=== PATIENT | male | born 1955 | race Caucasian/White ===

== ENCOUNTER 2020-08-23 09:44 | Inpatient (IN) | payer BC ==
[2020-08-23] VITALS (11 sets, daily range): BP systolic 104–142; BP diastolic 58–98
[~2020-08-23] VITALS: Ht 180.3 cm; Wt 120.2 kg
--- NOTE | 2020-08-23 10:06 | NUR ---
verbal order given for 150 mg Amiodarone bolus
[2020-08-23] MEDS ORDERED: DILTIAZEM HCL VIAL 5 ML ONE ×2 (10:08→20:59)
[2020-08-23] MEDS ORDERED: SODIUM CHLORIDE 0.9% 1000ML 1,000 ML ONE (10:08)
[2020-08-23] MEDS ORDERED: AMIODARONE HCL 150MG 100 ML IV STA (10:11)
[2020-08-23] MEDS ORDERED: DILTIAZEM HCL 5 MG/ML 5 ML VIAL IV STA (10:11)
[2020-08-23] MEDS ORDERED: AMIODARONE HCL 150MG 100 ML ONE (10:15)
[2020-08-23 10:21] LABS: BASOPHILS % 0.3 % (0.0-1.0); HEMATOCRIT 37.8 % (38.2-49.6); HEMOGLOBIN 13.2 g/dL (14.0-18.0); LYMPHOCYTES # (AUTO) 1.5 (1.0-3.2); LYMPHOCYTES % 10.4 % (18.0-39.1); MEAN CORPUSCULAR HEMOGLOBIN 29.5 pg (28-32); MEAN CORPUSCULAR HGB CONC 34.9 g/dL (31-35); MEAN CORPUSCULAR VOLUME 84.4 fL (81-99); MONOCYTES # (AUTO) 0.5 (0.2-0.8); MONOCYTES % 3.4 % (4.4-11.3); NEUTROPHILS # (AUTO) 12.5 (2.1-6.9); RED BLOOD COUNT 4.48 x10e6/uL (4.3-5.7); RED CELL DISTRIBUTION WIDTH 14.4 % (11.7-14.4)
[2020-08-23] MEDS ORDERED: AMIODARONE IV ONE (10:25)
[2020-08-23 10:35] LABS: PLATELET COUNT 22 x10e3/uL (140-360)
[2020-08-23 10:45] LABS: ALBUMIN 2.4 g/dL (3.5-5.0); ALBUMIN/GLOBULIN RATIO 0.8 (0.8-2.0); ANION GAP 23.1 mmol/L (8-16); CALCIUM 7.6 mg/dL (8.4-10.2); CREATININE, SERUM 6.66 mg/dL (0.72-1.25); POTASSIUM 4.1 mmol/L (3.5-5.1)
[2020-08-23 10:52] LABS: CREATINE KINASE MB 2.3 ng/mL (0-5.0)
--- NOTE | 2020-08-23 10:57 | Diagnostic Imaging Report ---
Chest, 1 view, 08/23/2020. History: A. Fib. Comparison: None available. Findings: The cardiomediastinal silhouette and pulmonary vasculature are prominent with hazy bilateral perihilar opacities and linear opacities in the left lung base. There is no focal consolidation or pleural effusion. There are no acute osseous or soft tissue abnormalities. Impression: Mild CHF with left basilar atelectasis. Signed by: Andrei Field on 08/23/2020 10:54 AM
--- NOTE | 2020-08-23 11:07 | Emergency Department Note ---
History of Present Illnes History of Present Illness Chief Complaint: General Medicine Complaints History of Present Illness This is a 64 year old male arrived to the ED with complaints of elevated heart rate from [facility] Patient with a known history of A. fib. states patient has been vomiting for the past week and was told it was a viral illness and has been on Zofran intermittently. Chief Complaint Comment pt came in via [facility] for c/o nausea, vomiting and generalized weakness, [facility] but called EMS for pt to be taken to the ER instead, pt noticed to have difficulty getting words out and as per , speech abnormality and confusion was noticed at 0400, Dr. Martins in the room at 0958, verbal order given for Cardizem 10 mg IV Historian: Patient Arrival Mode: [facility] Treatment PIT STEWARD: IV Severity: moderate Onset quality: sudden Timing of current episode: constant Progression: worsening Chronicity: recurrent Past Medical/Family History Physician Review I have reviewed the patient's past medical and family history. Any updates have been documented here. Past Medical History Recent Fever: No Clinical Suspicion of Infectio: Yes New/Unexplained Change in Ment: No Past Medical History: Hypertension, A-Fib Physical Exam Related Data Allergies: Coded Allergies: promethazine (Verified Allergy, Unknown, 08/23/20) Triage Vital Signs Vital Signs Date Time Temp Pulse Resp B/P (MAP) Pulse Ox O2 Delivery O2 Flow Rate FiO2 08/23/20 09:58 97.9 172 18 108/69 100 Room Air Physical Exam CONSTITUTIONAL Constitutional: Present well-developed, Present well-nourished HENT HENT: Present normocephalic, Present atraumatic, Present oropharynx clear/moist, Present nose normal HENT L/R: Present left ext ear normal, Present right ext ear normal EYES Eyes: Reports PERRL, Reports conjunctivae normal NECK Neck: Present ROM normal PULMONARY Pulmonary: Present effort normal, Present breath sounds normal CARDIOVASCULAR Cardiovascular: Present irregular rhythm, Present tachycardia GASTROINTESTINAL Abdominal: Present soft, Present nontender, Present bowel sounds normal GENITOURINARY Genitourinary: Present exam deferred SKIN Skin: Present warm, Present dry MUSCULOSKELETAL Musculoskeletal: Present ROM normal NEUROLOGICAL Neurological: Present alert, Present no gross motor or sensory deficits PSYCHOLOGICAL Psychological: Present mood/affect normal, Present judgement normal Results Laboratory Result Diagram: 08/23/20 0959 08/23/20 0959 Laboratory Laboratory Tests Test 08/23/20 09:59 White Blood Count 14.68 x10e3/uL (4.8-10.8) Red Blood Count 4.48 x10e6/uL (4.3-5.7) Hemoglobin 13.2 g/dL (14.0-18.0) Hematocrit 37.8 % (38.2-49.6) Mean Corpuscular Volume 84.4 fL (81-99) Mean Corpuscular Hemoglobin 29.5 pg (28-32) Mean Corpuscular Hemoglobin Concent 34.9 g/dL (31-35) Red Cell Distribution Width 14.4 % (11.7-14.4) Platelet Count 22 x10e3/uL (140-360) Neutrophils (%) (Auto) 85.0 % (38.7-80.0) Lymphocytes (%) (Auto) 10.4 % (18.0-39.1) Monocytes (%) (Auto) 3.4 % (4.4-11.3) Eosinophils (%) (Auto) 0.0 % (0.0-6.0) Basophils (%) (Auto) 0.3 % (0.0-1.0) Neutrophils # (Auto) 12.5 (2.1-6.9) Lymphocytes # (Auto) 1.5 (1.0-3.2) Monocytes # (Auto) 0.5 (0.2-0.8) Eosinophils # (Auto) 0.0 (0.0-0.4) Basophils # (Auto) 0.0 (0.0-0.1) Absolute Immature Granulocyte (auto 0.13 x10e3/uL (0-0.1) Sodium Level 136 mmol/L (136-145) Potassium Level 4.1 mmol/L (3.5-5.1) Chloride Level 102 mmol/L (98-107) Carbon Dioxide Level 15 mmol/L (22-29) Anion Gap 23.1 mmol/L (8-16) Blood Urea Nitrogen 92 mg/dL (7-26) Creatinine 6.66 mg/dL (0.72-1.25) Estimat Glomerular Filtration Rate 8 ML/MIN (60-) BUN/Creatinine Ratio 14 (6-25) Glucose Level 114 mg/dL (74-118) Calcium Level 7.6 mg/dL (8.4-10.2) Total Bilirubin 4.5 mg/dL (0.2-1.2) Aspartate Amino Transf (AST/SGOT) 140 IU/L (5-34) Alanine Aminotransferase (ALT/SGPT) 136 IU/L (0-55) Alkaline Phosphatase 253 IU/L (40-150) Creatine Kinase 54 IU/L (30-200) Creatine Kinase MB 2.30 ng/mL (0-5.0) Troponin I 0.014 ng/mL (0-0.300) B-Type Natriuretic Peptide 194.6 pg/mL (0-100) Total Protein 5.3 g/dL (6.5-8.1) Albumin 2.4 g/dL (3.5-5.0) Globulin 2.9 g/dL (2.3-3.5) Albumin/Globulin Ratio 0.8 (0.8-2.0) Lipase 28 U/L (8-78) Imaging Imaging results reviewed: Yes Procedures 12 Lead ECG Interpretation ECG Interpretation : ECG: ECG 1 Rhythm: atrial fibrillation Rate: tachycardia ST segments normal: Yes T waves normal: Yes Clinical Impression: abnormal ECG Critical Care Time Total Critical Care Time (min): 75 Critical care time exclusive o: separately billable procedures Assessment & Plan Medical Decision Making MDM 64-year-old male initially brought to the ED with A. fib and RVR. Patient's labwork markedly abnormal with thrombocytopenia, acute renal failure, metabolic acidosis, leukocytosis and lactic acidosis concerns of severe sepsis noted at 11:30. Patient covered with broad-spectrum antibiotics, patient required multidisciplinary approach, cardiology, nephrology, and hematology consulted. CT brain also done in the setting of questionable confusion. Patient required ICU admission. Extensive bed-sided care given. Assessment & Plan Final Impression: (1) Severe sepsis Depart Disposition: ADMITTED Last Vital Signs Date Time Temp Pulse Resp B/P (MAP) Pulse Ox O2 Delivery O2 Flow Rate FiO2 08/23/20 10:20 136 22 100/86 99 08/23/20 09:58 97.9 Room Air Medications in the ED Diltiazem HCl 5 ml @ ud STK-MED ONCE .ROUTE ; Start 08/23/20 at 10:08; Stop 08/23/20 at 10:02; Status DC Sodium Chloride 1,000 ml @ ud STK-MED ONCE .ROUTE ; Start 08/23/20 at 10:08; Stop 08/23/20 at 10:02; Status DC Amiodarone HCl 100 ml @ STK-MED ONCE .ROUTE ; Start 08/23/20 at 10:15; Stop 08/23/20 at 10:08; Status DC Amiodarone HCl 100 ml @ 600 mls/hr NOW STAT IV Last administered on 08/23/20at 10:10; Admin Dose 200 MLS/HR; Start 08/23/20 at 10:11; Stop 08/23/20 at 10:23; Status DC Amiodarone HCl 200 ml @ 33 mls/hr ONCE ONCE IV Last administered on 08/23/20at 10:43; Admin Dose 33 MLS/HR; Start 08/23/20 at 10:25; Stop 08/23/20 at 16:28 Amiodarone HCl 500 ml @ 16.6 mls/hr Q24H IV ; Start 08/23/20 at 16:25; Stop 09/22/20 at 16:24 Diltiazem HCl 10 mg NOW STAT IV Last administered on 08/23/20at 10:06; Admin Dose 10 MG; Start 08/23/20 at 10:11; Stop 08/23/20 at 10:15; Status DC DONALD MARTINS DO Aug 23, 2020 11:07
[2020-08-23] MEDS ORDERED: CEFEPIME 1GM/NS 0.9% 50 ML 50 ML IV SCH (11:22)
[2020-08-23] MEDS ORDERED: SODIUM BICARBONATE 8.4% INJ 50 ML SYR IV STA (11:22)
[2020-08-23] MEDS ORDERED: SODIUM CHLORIDE 0.9% 1000ML 1,000 ML IV STA (11:22)
[2020-08-23] MEDS ORDERED: VANCOMYCIN 1GM/NS 250 ML 250 ML IV STA (11:22)
[2020-08-23] MEDS ORDERED: SODIUM CHLORIDE 0.9% 1000ML 1,000 ML IV SCH (11:22)
[2020-08-23 11:40] LABS: PLATELET ESTIMATE MARKEDLY DECREASED
[2020-08-23 11:49] LABS: INR 1.08; PROTHROMBIN TIME 14.6 seconds (11.9-14.5)
--- NOTE | 2020-08-23 12:14 | NUR ---
1st attempt to call report
--- NOTE | 2020-08-23 12:21 | NUR ---
report given to Nu DELVALLE
--- OUTSIDE RECORDS SUMMARY | 2020-08-23 12:29 | XMS REPORT | Continuity of Care Document ---
Author Author [facility] t Organization [facility] Address [address] [place] [address] Phone Unavailable Care Team Providers Care Airfield Engineer Officer Name Role Phone Donna AMRTINS Attphydonna Unavailable Payers Payer Name Policy Type Policy Number Effective Date Expiration Date S ource Problems This patient has no known problems. Allergies, Adverse Reactions, Alerts Allergy Name Allergy Type Status Severity Reaction(s) Onset Date Inacti ve Date Treating Clinician Comments Source No Known Allergies DA Active U 2020-06-29 00:00:00 [facility] Medications This patient has no known medications. Procedures This patient has no known procedures. Results Test Description Test Time Test Comments Results Result Comments Source CHEST SINGLE (PORTABLE) 2020-08-23 10:53:00 [facility] [address] [place], [place] [address] Patient Name: KULWANT KOLB MR #: [id number] : 1955 Age/Sex: 64/M Req #: [id number] Adm Physician: Ordered by: DONALD MARTINS DO Report #: [id number] Location: ER Room/Bed: Procedure: [id number] DX/CHEST SINGLE (PORTABLE) Exam Date: 08/23/20 Exam Time: 1021 REPORT STATUS: Signed Chest, 1 view, 08/23/2020. History: A. Fib. Comparison: None available. Findings: The cardiomediastinal silhouette and pulmonary vasculature are prominent with hazy bilateral perihilar opacities and linear opacities in the left lung base. There is no focal consolidation or pleural effusion. There are no acute osseous or soft tissue abnormalities. Impression: Mild CHF with left basilar atelectasis. Signed by: Andrei Field on 08/23/2020 10:54 AM Dictated By: ANDREI FIELD MD 1054 Transcribed By: PILI on 08/23/20 1054 COPY TO: DONALD MARTINS DO COVID 19 Asymptomatic IH AG 2020-06-30 08:15:00 Test Item COVID 19 Asymptomatic IH AG (test code = COVNONPUIAG) Negative Negative A negative result is presumptive and should be confirmedwith an FDA authorized molecular assay, if necessary forpatient management.A positive result does not rule out co-infections withother pathogens.This test detects both viable (live) and non-viable,SARS-CoV, and SARS-CoV-2. Test performance depends on theamount of virus (antigen) in the sample.This test has not been FDA cleared or approved; the test hasbeen authorized by FDA under an Emergency Use Authorization(EUA) for use by laboratories certified under the CLIA thatmeet the requirements to perform moderate, high or waivedcomplexity tests. RENAL FUNCTION [id number] 05:18:00* Test Item Value Reference Range Interpretation Comments SODIUM (test code = NA) 142 mEq/L 134-147 N POTASSIUM (test code = K) 3.8 mEq/L 3.4-5.0 N CHLORIDE (test code = CL) 106 mEq/L 100-108 N CARBON DIOXIDE (test code = CO2) 27 mEq/L 21-33 N ANION GAP (test code = GAP) 13 0-20 N GLUCOSE (test code = GLU) 90 mg/dL 70-110 N BLOOD UREA NITROGEN (test code = BUN) 19 mg/dL 7-18 H GLOMERULAR FILTRATION RATE (test code = GFR) 97.6 80-90 H Units of measure = ml/min/1.73 m2 CREATININE (test code = CREAT) 0.8 mg/dL 0.6-1.3 N ALBUMIN (test code = ALB) 4.10 g/dL 3.4-5.0 N CALCIUM (test code = CA) 9.4 mg/dL 8.0-10.5 N PHOSPHOROUS (test code = PHOS) 3.4 mg/dL 2.5-4.9 N [id number] 05:18:00* Test Item Value Reference Range Interpretation Comments MAGNESIUM (test code = MAG) 2.19 mg/dL 1.8-2.4 N CBC W/AUTO [id number] 05:03:00* Test Item Value Reference Range Interpretation Comments WHITE BLOOD CELL (test code = WBC) 9.70 x10 3/uL 4.5-11.0 N RED BLOOD CELL (test code = RBC) 5.00 x10 6/uL 4.00-5.60 N HEMOGLOBIN (test code = HGB) 14.9 g/dL 12.5-16.9 N HEMATOCRIT (test code = HCT) 44.5 % 37.5-50.7 N MEAN CELL VOLUME (test code = MCV) 89.0 fL 81.0-99.0 N MEAN CELL HGB (test code = MCH) 29.8 pg 27.0-33.0 N MEAN CELL HGB CONCETRATION (test code = MCHC) 33.5 g/dL 33.0-37. 0 N RED CELL DISTRIBUTION WIDTH CV (test code = RDW) 13.5 % 11.5- 14.5 N RED CELL DISTRIBUTION WIDTH SD (test code = RDW-SD) 43.9 fL 37 .0-54.0 N PLATELET COUNT (test code = PLT) 263 x10 3/uL 150-400 N MEAN PLATELET VOLUME (test code = MPV) 9.7 fL 7.0-9.0 H NEUTROPHIL % (test code = NT%) 71.2 % 56.0-77.0 N IMMATURE GRANULOCYTE % (test code = IG%) 0.2 % 0.0-2.0 N LYMPHOCYTE % (test code = LY%) 15.8 % 14.0-32.0 N MONOCYTE % (test code = MO%) 9.2 % 4.8-9.0 H EOSINOPHIL % (test code = EO%) 3.1 % 0.3-3.7 N BASOPHIL % (test code = BA%) 0.5 % 0.0-2.0 N NUCLEATED RBC % (test code = NRBC%) 0.0 % 0-0 N NEUTROPHIL # (test code = NT#) 6.91 x10 3/uL 2.0-7.6 N IMMATURE GRANULOCYTE # (test code = IG#) 0.02 x10 3/uL 0.00-0.03 N LYMPHOCYTE # (test code = LY#) 1.53 x10 3/uL 1.0-3.8 N MONOCYTE # (test code = MO#) 0.89 x10 3/uL 0.1-0.8 H EOSINOPHIL # (test code = EO#) 0.30 x10 3/uL 0.0-0.2 H BASOPHIL # (test code = BA#) 0.05 x10 3/uL 0.0-0.2 N NUCLEATED RBC # (test code = NRBC#) 0.00 x10 3/uL 0.0-0.1 N MANUAL DIFF REQUIRED (test code = MDIFF) NO - XR CHEST 1 [id number] 01:26:00 FAX: Jun Siddiqi MD [phone] [place]: St: ADM FAX: Devang Bryan MD Name: KULWANT KOLB [facility] : 1955 Age/S: 64/M [address] [place] [address] Unit #: [id number] Loc: [place] [address] Phys: Jun Johnson MD Acct: [id number] Dis Date: Status: ADM IN PHONE #: [phone] Exam Date: 06/30/2020 0022 FAX #: [phone] Reason: TRAUMA EXAMS: CPT CODE: [id number] XR CHEST 1 V 60476 Study: - XR CHEST 1 V 06/30/2020 11:59 PM Patient Name: KULWANT KOLB MR: [id number] : 1955; Age: 64 years y/o Male Ordering Physician: Jun Johnson MD Clinical Indication: Chest trauma. Comparison: None FINDINGS LUNGS: The lungs are clear of consolidation, pleural effusion, and pneumothorax. Minimal left basilar subsegmental atelectasis. HEART AND MEDIASTINUM: Normal size heart. LINES: None. OSSEOUS STRUCTURES: No fracture, dislocation, or suspicious focal osseous lesion. OTHER: None. IMPRESSION: No acute abnormality as above discussed. SL: TPAINTER-H at 0126 Reported and signed by: Tariq Chino M.D. CC: Jun Johnson MD; Devang Bryan MD Technologist: RT Ray(R) Trnscrd Date/Time/By: 06/30/2020 (0126) : By: [email or web address] Orig Print D/T: S: 06/30/2020 (0129) P AGE 2 Signed Report - XR HAND 3 + V [id number] 19:53:00 FAX: Devang Bryan MD [place]: St: REG Name: KULWANT RODRIGUEZ [facility] : [birth year] Age/S: 64/M [address] [place] [address] Unit #: [id number] Loc: [place] [address] Phys: Devang Bryan MD Acct: [id number] Dis Date: Status: REG ER PHONE #: [phone] Exam Date: 06/29/20201944 FAX #: [phone] Reason: thumb injury EXAMS: CPT CODE: [id number] XR HAND 3 + [place] [address] Three-view left hand. INDICATION: Left thumb laceration injury FINDINGS: No prior for comparison. No acute fracture, dislocation, osseous destruction is seen i n the hand. No radiopaque foreign body identified. IMPRES ERIBERTO: No acute bony finding or radiopaque foreign body. SL: SG-H at [facility] Reported and signed by: Odell Perez M.D. CC: Devang Bryan MD Technologist: Aubrie Laboy RT(R); Mindi Smith RT(R) Trnmerd Date/Time/By: 06/29/2020 (1952) : By: [email or web address] PAGE 1 Signed Report
--- NOTE | 2020-08-23 12:30 | NUR ---
RT notified that patient needs a STAT ABG draw at this time
--- NOTE | 2020-08-23 12:50 | Diagnostic Imaging Report ---
EXAMINATION: Head CT HISTORY: 64 year old male with altered mental status, history of atrial fibrillation COMPARISON: None available TECHNIQUE: Helical axial images of the head were obtained. Reformatted coronal and sagittal images from the axial data. Dose modulation, iterative reconstruction, and/or weight based adjustment of the mA/kV was utilized to reduce the radiation dose to as low as reasonably achievable. FINDINGS: Parenchyma: 1. Suboptimal evaluation due to patient's motion, grossly no areas of abnormal density in the brain parenchyma. 2. No mass or hemorrhage. No CT evidence of acute territorial vascular insult. Extra-axial spaces:No abnormal density. No extra-axial fluid collections Brain volume: Paucity of the cerebral sulci near the vertex region. Ventricles: Mild ventriculomegaly without transependymal CSF spread. Arteries: No density suggestive of thrombus. Dural sinuses: No abnormal density. Foramen magnum: No mass, Chiari malformation, or basilar invagination. Sella: No obvious mass. Paranasal/mastoid sinuses: Imaged portions unremarkable. Skull/Scalp: No lytic or blastic lesions. No fractures. IMPRESSION: Suboptimal evaluation due to motion artifact, grossly no acute intracranial mass, hemorrhage, midline shift or herniation. Signed by: Dr. Meagan Jordan M.D. on 08/23/2020 12:47 PM
--- NOTE | 2020-08-23 12:52 | Diagnostic Imaging Report ---
CT of the abdomen and pelvis, without contrast, 08/23/2020. History: Abdominal pain. Comparison: None available. Technique: Multidetector CT scanning of the abdomen and pelvis was performed from the level of the lung bases to the inferior pubic rami without intravenous or oral contrast. Coronal and sagittal multiplanar reformations were obtained. RADIATION DOSE: Total DLP: 2083 mGy*cm Dose modulation, iterative reconstruction, and/or weight based adjustment of the mA/kV was utilized to reduce the radiation dose to as low as reasonably achievable. Discussion: Examination is limited without contrast. Lung bases: There is bibasilar atelectasis. A 3.4 x 1.8 cm oval circumscribed low density subcutaneous lesion is present within the lower anterior chest wall, measuring 11 Hounsfield units in density. Abdomen: A 3.4 cm simple cyst is present in the upper pole of the left kidney. A 3 mm calcification is present in the lower pole of the left kidney. There is no evidence of hydronephrosis. The liver, gallbladder, biliary tree, spleen, pancreas, adrenal glands, and right kidney are unremarkable. The abdominal aorta is within normal limits. There is no bowel dilatation. Scattered diverticula are present within the distal colon without evidence of adjacent inflammation. There is no evidence of adenopathy or free fluid. Pelvis: The bladder, prostate, and seminal vesicles are unremarkable. There is no evidence of free fluid or adenopathy. Bones and soft tissues: Degenerative changes are present throughout the lumbar spine without evidence of lytic or sclerotic lesion. IMPRESSION: 1. Probable sebaceous cyst in the lower anterior thoracic wall. 2. Benign left renal cyst and nonobstructing 3 mm left renal calculus. 3. Colonic diverticulosis without evidence of diverticulitis. Otherwise unremarkable noncontrast exam. Signed by: Andrei Field on 08/23/2020 12:49 PM
[2020-08-23 12:58] LABS: ABG HCO3 18 mmol/L (22-26); ABG PCO2 25 mmHg (35-45); ABG PH 7.46 (7.35-7.45); ABG PO2 77 mmHg (80-105); ABG TCO2 19
[2020-08-23] MEDS: LACTATED RINGER'S 1,000 ML INJ SCH ×3 (13:38→16:49)
--- NOTE | 2020-08-23 13:50 | Consultation ---
DATE OF CONSULTATION: Pulmonary Critical Care Consultation CHIEF COMPLAINT: Nausea, vomiting, fevers, and malaise. HISTORY OF PRESENT ILLNESS: The patient is a 64-year-old man. He has a history of atrial fibrillation and hypertension. Approximately a week ago, he started developing nausea and vomiting. He had a virtual appointment with a [facility] doctor and received Zofran. He had some temporary relief, but the symptoms recurred again this morning. This morning, he had vomiting as well as some confusion and fevers. He was taken to the emergency department and found to have rapid atrial fibrillation as well as acute renal failure and a low platelet count. PAST SURGICAL HISTORY: 1. denies any prior abdominal surgery. 2. Recent skin biopsy for a rash in the lower extremities. PAST MEDICAL HISTORY: 1. Hypertension. 2. Atrial fibrillation. 3. No prior liver disease. 4. No prior kidney disease. 5. No prior respiratory problems. FAMILY HISTORY: Noncontributory. ALLERGIES: THE PATIENT IS ALLERGIC TO PROMETHAZINE. REVIEW OF SYSTEMS: The patient is afebrile. The patient is still having nausea and vomiting. He has some confusion. He does not have chest pain. He has some dyspnea. He has some possible right flank or right upper abdominal pain. He has no diarrhea. He does have a rash sounds lower extremities as well as torsion. PHYSICAL EXAMINATION: VITAL SIGNS: Blood pressure is 113/86, saturation is 98% on room air. The respiratory rate is in the mid 20s. The heart rate is 130-140 and is atrial fibrillation. ABDOMEN: Soft. There is some right upper quadrant and right flank tenderness. He has no rebound or guarding. EXTREMITIES: There is no leg edema. SKIN: Examination of the skin shows an excoriated macular rash on the lower extremities as well as on the trunk. NEUROLOGICAL: Some confusion, but no focal abnormalities. LABORATORY DATA: White blood cell count is 14.68, hemoglobin is 13.2. The platelet count is 22. The BUN to creatinine ratio is 92% to 6.66. The total bilirubin is 4.5 and the AST is 140. The ALT is 136 and the alkaline phosphatase is 253. The lactic acid is 2.4 and the creatinine is 6.66. The BUN is 92. The carbon dioxide is 15. Other electrolytes within normal limits. The PT and INR within normal limits. RADIOGRAPHIC DATA: Chest x-ray shows mild interstitial changes. CT scan of the abdomen and pelvis is pending. IMPRESSION: 1. Acute renal failure. 2. Septic shock with unclear source, present on admission. 3. Elevated total bilirubin and transaminitis of unclear etiology, present on admission. 4. Severe thrombocytopenia, present on admission. 5. Metabolic acidosis. 6. Atrial fibrillation with rapid ventricular response. PLAN: 1. The patient has received 2.5 L of fluid. 2. The patient has been initiated on broad-spectrum antibiotics. Cultures have been obtained. 3. Await results of abdomen and pelvic CT. 4. Continue to monitor renal function. 5. The patient is receiving amiodarone. 6. Possible platelet transfusion. 7. Nephrology consultation. Case discussed with , emergency department and nursing staff. The understands the patient's condition is very serious and he will require care in the intensive care unit. MD ARVIND Cisneros/RUDDY /[id number] MTDD
[2020-08-23] MEDS ORDERED: DOXYCYCLINE 100MG/NS 100ML 100 ML IV SCH (14:00)
[2020-08-23] MEDS ORDERED: FUROSEMIDE INJ 10 MG/ML 2 ML VIAL IV ONE (14:45)
--- NOTE | 2020-08-23 14:50 | NUR ---
Phoned Stephanie obtained consent for blood products place on chart with by Meg DELVALLE
--- NOTE | 2020-08-23 15:15 | Consultation ---
DATE OF CONSULTATION: Initial Nephrology consultation report REASON FOR CONSULTATION: Acute kidney injury. HISTORY OF PRESENT ILLNESS: Mr. Francisco Simmons is a 64-year-old male, who presented to the hospital. He was actually brought into the hospital. He presented with atrial fibrillation with rapid ventricular response. He was brought in by EMS. The patient also reports that he has been having some altered mental status, vomiting, and some weakness and also some difficulty in speech that was noticed. I am being asked to see him because his serum creatinine is 6. I do not have any other old records on the patient. I do not have any baseline on him. The patient states that he has not been taking any NSAIDs or any Gray-2 inhibitors. The patient right now is tachycardic. PAST MEDICAL HISTORY: The patient has a history of atrial fibrillation, history of hypertension. No other known past medical history. PAST SURGICAL HISTORY: Unknown. REVIEW OF SYSTEMS: As per HPI. MEDICATIONS: Right now in the hospital, he is on amiodarone. He has gotten cefepime and doxycycline. He is on IV fluid. PHYSICAL EXAMINATION: VITAL SIGNS: Blood pressure is 113/86, pulse in the 130-150, and temperature 97.9. GENERAL: The patient seems to be somewhat in distress. He is a little bit tremulous. HEENT: No increased JVD. CARDIOVASCULAR: Tachycardic, irregular rhythm. LUNGS: Decreased breath sounds at bases bilaterally. ABDOMEN: Positive bowel sounds. EXTREMITIES: No edema. SKIN: The patient does have some reticular type of rash on lower part of his legs, and also the lower part of his abdomen, somewhat erythematous on the abdomen probably could be maculopapular. IMAGING DATA: The chest x-ray shows probable mild CHF. CT of the abdomen and pelvis shows the kidneys to be essentially unremarkable except for a renal cyst on the left. LABORATORY RESULTS: Blood gas is pH 7.46, pCO2 of 25, PO2 of 77 and bicarb is 18. White count 14.6, hemoglobin and hematocrit 13 and 37, and platelet count 22,000. Sodium 136, potassium 4.1, chloride 102, bicarbonate 15, anion gap 23, BUN and creatinine 92 and 6.6 respectively. Calcium is 7.6. Total bilirubin 4.5, AST and ALT 140 and 136, and alkaline phosphatase 253. BNP 194. Lactic acid 2.4. IMPRESSION: 1. Acute kidney injury. 2. Metabolic acidosis. 3. Probable respiratory alkalosis. 4. Hypovolemia. 5. Shock. 6. Transaminitis. 7. Thrombocytopenia. 8. Sepsis. PLAN: At the present time, the patient has renal failure and it looks like all of his LFTs are elevated as well. The patient did not give me a history of any medication usage, Tylenol, or NSAIDs or otherwise [id number]-ssixmjz. The patient is behaving as if he is septic. IV fluids will be given. I will have his IV fluids changed to lactated Ringer 125 mL an hour for 2 L and then 100 mL an hour. I will give him one dose of Lasix 60 mg IV x1 to keep him nonoliguric. NSAIDs, Gray-2 inhibitor, and IV contrast should be avoided. I will check a urinalysis on him. I will also do a full serological workup to make sure there is no other reason to do workup for rapidly progressive glomerulonephritis even though this may be simply sepsis. I will check an SUMMER, lnsr-exsozl-enamnywd DNA, C3, C4, C-ANCA, P-ANCA, anti-GBM antibody, and hepatitis B and C serologies. Further actions will be based on this preliminary workup. At some point, he will need a Trialysis catheter. However, his platelets are only 20,000 at this point, so this will need to be assessed before probably a light can be placed. I will follow the patient with you. Ather MD MARC Lewis/RUDDY /[id number]
[2020-08-23 16:00] LABS: BASOPHILS # (AUTO) 0.1 (0.0-0.1); BASOPHILS % 0.4 % (0.0-1.0); EOSINOPHILS % 0.2 % (0.0-6.0); HEMATOCRIT 40.6 % (38.2-49.6); HEMOGLOBIN 13.8 g/dL (14.0-18.0); LYMPHOCYTES # (AUTO) 1.9 (1.0-3.2); LYMPHOCYTES % 10.6 % (18.0-39.1); MEAN CORPUSCULAR VOLUME 85.3 fL (81-99); MONOCYTES # (AUTO) 0.6 (0.2-0.8); MONOCYTES % 3.3 % (4.4-11.3); NEUTROPHILS # (AUTO) 15.1 (2.1-6.9); NEUTROPHILS % 84.5 % (38.7-80.0); RED BLOOD COUNT 4.76 x10e6/uL (4.3-5.7); RED CELL DISTRIBUTION WIDTH 14.6 % (11.7-14.4)
[2020-08-23 16:03] LABS: PLATELET COUNT 24 x10e3/uL (140-360)
[2020-08-23] MEDS ORDERED: AMIODARONE 900MG 500 ML IV SCH (16:25)
[2020-08-23] MEDS: CEFTRIAXONE SOD 2 GM/NS 100 ML 100 ML IV SCH (16:51)
[2020-08-23] MEDS: AMPICILLIN SOD 2 GM/NS 100ML 100 ML IV SCH (16:51)
[2020-08-23 16:56] LABS: HIV 1&2 AB SCREEN NON-REACTIVE (NONREACTIVE)
--- NOTE | 2020-08-23 16:57 | Diagnostic Imaging Report ---
Renal ultrasound. Clinical History: Acute renal failure. Comparison Study: CT abdomen from earlier today. Findings: The right kidney measures 12 cm and left kidney measures 11.9 cm. Oval anechoic structures are present bilaterally, one in the right interpolar region measuring 1.3 x 1.1 x 1.6 cm and one in the left upper pole measuring 3.5 x 3.0 x 2.6 cm. There is no evidence of hydronephrosis, nephrolithiasis or renal mass on either side. The small stone seen on CT is not visible on this ultrasound. The echogenicity is slightly increased bilaterally. The cortical thickness on the right side is 2.0 cm bilaterally. Both arterial and venous flow is documented to both kidneys. The bladder bladder is unremarkable. Bilateral ureteral jets are seen. Impression: 1. Slightly increased renal echogenicity suggestive of medical renal disease. 2. Simple benign bilateral renal cysts. Signed by: Andrei Field on 08/23/2020 4:53 PM
--- NOTE | 2020-08-23 17:05 | NUR ---
Obtained phoned consent for dialysis catheter placement and hemodialysis for per Dr Benitez request from Stephanie placed on chart witness by Laure Vega
--- NOTE | 2020-08-23 18:06 | Consultation ---
DATE OF CONSULTATION: REASON FOR CONSULTATION: Sepsis, altered mental status, and fever. HISTORY OF PRESENT ILLNESS: This patient is a 64-year-old gentleman. Apparently, he has been sick for a week after nausea, some vomiting, not feeling well. Three weeks ago, apparently he saw nausea and vomiting, he saw his doctor through a virtual visit. He was given Zofran with some relief, but then it got worse again. [facility] and he was evaluated. His blood pressure was on low side and he having these tremor. He was also found to have atrial fibrillation. He had acute renal failure. He was seen in the emergency room, he was found to have thrombocytopenia, acute renal failure, and fever. The patient is being admitted. I am asked to see him. The patient is currently alert. He knows he is in the hospital source of information. I had called his . 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 ALLERGIES: NKA. SOCIAL HISTORY: There is no smoking, drug abuse, or alcohol abuse. He has some cats. FAMILY HISTORY: Otherwise noncontributory. REVIEW OF SYSTEMS: HEENT: Negative beside the tremor, fever, chills, and nausea, which resolved. PHYSICAL EXAMINATION: GENERAL: As mentioned above, currently confused. VITALS: Stable, temperature 97.9, heart rate 72, blood pressure 108/69. HEENT: Normocephalic. NECK: Supple. HEART: S1-S2. ABDOMEN: Soft, bowel sounds present. EXTREMITIES: No edema. IMPRESSION: 1. 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 2. Acute kidney injury, we will obtain blood cultures and obtain urine cultures, and obtain LP. He probably need blood transfusion. He would probably need dialysis. We will start patient on ampicillin, Rocephin, and acyclovir. He received dose of vancomycin. We will modify after his kidney function. 3. His COVID-19 was negative earlier with his doctor office. Further recommendations to follow. MD SETH Cornell/RUDDY /[id number]
[2020-08-23] MEDS ORDERED: SODIUM CHLORIDE 0.9% 250ML 250 ML ONE (18:21)
[2020-08-23 18:56] LABS: BASOPHILS # (AUTO) 0.1 (0.0-0.1); BASOPHILS % 0.3 % (0.0-1.0); HEMATOCRIT 37.5 % (38.2-49.6); LYMPHOCYTES # (AUTO) 1.5 (1.0-3.2); LYMPHOCYTES % 8.1 % (18.0-39.1); MEAN CORPUSCULAR HGB CONC 34.7 g/dL (31-35); MEAN CORPUSCULAR VOLUME 83.5 fL (81-99); MONOCYTES # (AUTO) 0.7 (0.2-0.8); NEUTROPHILS # (AUTO) 15.9 (2.1-6.9); NEUTROPHILS % 86.5 % (38.7-80.0); RED BLOOD COUNT 4.49 x10e6/uL (4.3-5.7); RED CELL DISTRIBUTION WIDTH 14.5 % (11.7-14.4)
[2020-08-23 19:02] LABS: PLATELET COUNT 87 x10e3/uL (140-360)
[2020-08-23 19:17] LABS: ALBUMIN 2.5 g/dL (3.5-5.0); ALBUMIN/GLOBULIN RATIO 0.8 (0.8-2.0); ANION GAP 23.9 mmol/L (8-16); CALCIUM 7.5 mg/dL (8.4-10.2); CREATININE, SERUM 7.32 mg/dL (0.72-1.25); POTASSIUM 3.9 mmol/L (3.5-5.1)
[2020-08-23] MEDS ORDERED: LIDOCAINE HCL 2% LOCAL 20 ML VIAL ONE (19:17)
[2020-08-23] MEDS: ACYCLOVIR SODIUM INJ 500 MG in SODIUM CHLORIDE 0.9% 100 ML 100 ML IV SCH (19:20)
[2020-08-23] MEDS ORDERED: LORAZEPAM INJ 2 MG/ML VIAL ONE (20:10)
--- NOTE | 2020-08-23 20:20 | Diagnostic Imaging Report ---
EXAMINATION: CHEST SINGLE (PORTABLE) INDICATION: Sepsis ^line placement COMPARISON: 08/23/2020 FINDINGS: TUBES and LINES: Right internal jugular central venous catheter with distal tip over the low superior vena cava. The cardiomediastinal silhouette and pulmonary vasculature are prominent with hazy bilateral perihilar opacities and linear opacities in the left lung base. There is no focal consolidation or pleural effusion. No pneumothorax is seen. There are no acute osseous or soft tissue abnormalities. IMPRESSION: Right internal jugular central venous catheter with distal tip over the low superior vena cava. Findings could be due to CHF with left basilar atelectasis. Pneumonia is a possibility in the appropriate clinical context. Follow-up imaging is indicated to document clearing. Signed by: Dr. Govind Chavarria M.D. on 08/23/2020 8:16 PM
--- NOTE | 2020-08-23 20:32 | Consultation ---
DATE OF CONSULTATION: 08/23/2020 Cardiology Consultation REASON FOR CONSULTATION: Atrial fibrillation. HISTORY OF PRESENT ILLNESS: Mr. Simmons is a 64-year-old male with past medical history of atrial fibrillation diagnosed in 2018, chronically on Xarelto and metoprolol therapy and paroxysmal as well as history of hypertension. He was brought into the emergency room after being transferred from a freestanding. He gets most of his care through [facility]. For the past six days, the patient has been having incessant nausea, vomiting, inability to keep any solids down and just progressively getting worse, fatigue, and malaise. The patient's symptoms progressively worsened last Sunday, had a telephone visit where he had some prescription of antiemetic and did a little bit better. He is able to tolerate a little bit of light food. The patient then became worse today where he was noted to have a rash develop on his arms and central body and was noted to be altered with incessant nonrhythmic jerking all over his body. He was noted to have fever as an outpatient this morning up to 99 and came in for evaluation. It was clearly recognized that he was acutely ill with an elevated white cell count and was in florid renal failure with a creatinine of 6.6 and platelets down to 22,000. He has elevated liver function tests and appears to be developing liver injury and albumin is low at 2.4. In light of his multiorgan failure state, the patient was initially in atrial fibrillation with rapid ventricular response with heart rate going up to the 170s and we were consulted. It is very difficult to elicit any history and most of the history was obtained by talking to his over the phone. The only other thing that he has been dealing with left thumb surgery back in June of 2020, but seems to had been recovering from that. Of note, he has not been taking his anticoagulant for the past week on account of inability to keep anything down. PAST MEDICAL HISTORY: 1. Hypertension. 2. Paroxysmal atrial fibrillation diagnosed in 2018. PAST SURGICAL HISTORY: Left thumb surgery in June of 2020. FAMILY HISTORY: Mother in her 80s with dementia. Father in his 70s and had polio, no premature history of coronary artery disease. SOCIAL HISTORY: He is a lifelong nonsmoker. Denies any alcohol or illicit drug use. ALLERGIES: INCLUDE COUGH SYRUP, CODEINE CAUSING MALAISE AND ARRHYTHMIAS. CURRENT MEDICATIONS: Include metoprolol 25 mg b.i.d. and Xarelto 20 mg daily. REVIEW OF SYSTEMS: GENERAL: Positive for fevers, chills, or malaise. HEENT: Slight headache. No diplopia or photophobia. Intact hearing. No nasal congestion or sore throat. RESPIRATORY: Denies any pleuritic chest pain, positive for nonproductive cough. CARDIOVASCULAR: No chest pain. Positive for palpitations. No syncope. Did have some dizziness. GI: Positive for abdominal pain, intractable nausea and vomiting. : Denies any dysuria or pyuria, does have decreased urinary frequency. MUSCULOSKELETAL: Aches all over. ENDOCRINE: No heat or cold intolerance. SKIN: Positive for rash in his abdomen, legs and arms. NEUROLOGIC: Positive for tremulousness and generalized weakness. Remainder of review of systems negative otherwise mentioned. PHYSICAL EXAMINATION: VITAL SIGNS: Height of 70 inches, weight of 189 pounds, BMI is 27, temperature 97.9, pulse of 176, respiratory rate of 26, blood pressure 90/61, O2 saturation 100% on 2 L nasal cannula. GENERAL: This is an acutely ill gentleman, who is tremulous and appears to be in mild to moderate distress. HEENT: Normocephalic, atraumatic. Pupils equal, round, and reactive to light. Extraocular movements are intact. Oropharynx is clear. NECK: No elevation of jugular venous pulsation. No carotid bruits. CARDIOVASCULAR: Regularly irregular rate and rhythm. Tachycardic. Normal S1 and S2. A 2/6 systolic murmur at left lower sternal border. LUNGS: Poor air flow throughout lung garcia and slight decreased bibasilar breath sounds. ABDOMEN: Soft. Mild discomfort to palpation at the right upper quadrant region. There is a notable skin sebaceous cyst noted. BACK: No costovertebral angle tenderness. EXTREMITIES: Cool, mottled, and digits all appear cyanotic. NEUROLOGIC: He is tremulous overall with nonrhythmic jerking, positive for asterixis. He is alert, oriented x1 and he appears to move all four extremities. LABORATORY DATA: White count 14.7, hemoglobin 13.2, hematocrit 37.8, platelets 22,000. Sodium 136, potassium 4.1, chloride 102, bicarb 15, BUN 92, creatinine 6.66, glucose of 114. INR is 1.08. ABG 7.46, pCO2 25, PO2 77, calcium of 7.6. AST 140, ALT 130, alkaline phosphatase 253, total protein 5.3, albumin of 2.4. Troponin 0.014. Lactate level 2.4. BNP is 105. EKG reveals atrial fibrillation with rapid ventricular response. CT had no acute abnormalities, but limited due to motion. Abdomen and pelvis CT shows diverticulosis and notable facial cyst in the abdominal wall. Chest x-ray reveals atelectasis at the bases. DIAGNOSES: 1. Septic shock. 2. Atrial fibrillation with rapid ventricular response during my sepsis. 3. Profound thrombocytopenia. 4. Acute kidney injury. 5. Acute liver injury. 6. Altered mental status and encephalopathy. PLAN/RECOMMENDATIONS: 1. From a cardiovascular standpoint, we will recommend broad-spectrum antibiotic and management per critical care team in terms of sepsis. 2. The patient has also received 2.5 L in the ICU. 3. Renal has been consulted for renal measures. 4. We will recommend thrombocytopenia workup and definitely no anticoagulant therapy for now. 5. In terms of atrial fibrillation, we can recommend rate control measures as tolerated including a drip. 6. We will check the echo to evaluate left ventricular function. 7. We will continue to follow this patient. Thank you for this referral. MD PUSHPA Hutchinson/RUDDY /[id number]
--- NOTE | 2020-08-23 20:52 | NUR ---
proceeduure note pre-proceedure dx - meningitis Lumbar puncuture patient placed in lateral decubitus position, 4 attempts made betwen l4-l5 single attempt at l3-l4 not able to access CSF <2cc blood loss IR will be consulted for assistance w ragiological guidance procedure unsuccessful . [id number]
--- NOTE | 2020-08-23 20:52 | NUR ---
proceedure note Concern for meningitis vs encephalitis patient placed in right lateral decubitus poosition area sterilized 2 assistants at [facility] , region attmepte for LP L4-L5 4 attempts, sigle attempt at l3-l4 not able to access CSF proceedure was unsuccessful will contact IR for radiological guidance
[2020-08-23] MEDS ORDERED: DIGOXIN INJ 0.25 MG/ML 2 ML AMP ONE (20:58)
[2020-08-23] MEDS ORDERED: SODIUM CHLORIDE 0.9% 100 ML ONE (21:02)
[2020-08-23] MEDS ORDERED: DILTIAZEM HCL IV 5MG/ML 25 ML VIAL ONE (21:12)
[2020-08-23] MEDS: DILTIAZEM HCL 5 MG/ML 5 ML VIAL IV PRN ×2 (21:20→21:25)
[2020-08-23] MEDS: DILTIAZEM HCL 125 ML IV SCH (21:23)
[2020-08-23] MEDS: DIGOXIN INJ 0.25 MG/ML 2 ML AMP IV PRN ×2 (21:27→23:46)
[2020-08-23] MEDS: ACETAMINOPHEN 325 MG SUPP PR PRN (21:46)
[2020-08-23] MEDS: LEVETIRACETAM 500MG/5ML VIAL 500 MG in SODIUM CHLORIDE 0.9% 100 ML 100 ML IV SCH (21:50)
--- NOTE | 2020-08-23 23:12 | Operative Report ---
DATE OF PROCEDURE: SURGEON: Edmond Benitez MD PROCEDURES: Trialysis catheter placement under ultrasound guidance. PREOPERATIVE DIAGNOSIS: Acute renal failure. POSTOPERATIVE DIAGNOSIS: Acute renal failure. CONSENT: Consent was obtained from the . ANESTHESIA: 1% lidocaine for local anesthesia. DESCRIPTION OF PROCEDURE: The right neck was prepped sterilely with chlorhexidine. Full-length sterile drapes, sterile gown, sterile mask, and sterile gloves were used. 1% lidocaine was used to anesthetize the area between the heads of the sternocleidomastoid. An ultrasound machine was used to locate the right internal jugular vein. It was patent with no thrombosis. It was easily compressible. The right internal jugular vein was cannulated under direct visualization with a 16-gauge needle. A wire was then passed through the needle. A series of dilators were used to open the skin. A Trialysis catheter was then placed over the wire by the Seldinger technique. All the ports were flushed. COMPLICATIONS: None. ESTIMATED BLOOD LOSS: None. Edmond Benitez MD [facility]/MODL /[id number]
[2020-08-24] VITALS (42 sets, daily range): BP systolic 42–131; BP diastolic 42–87
--- NOTE | 2020-08-24 | NUR ---
Upon assuming care, Dr. Benitez had finished placing a dialysis cath to [facility]. At ~2015, pt had a seizure, witnessed by Dr. Wells and Dr. Benitez with Ativan 2 mg IV given. LP then attempted multiple times by Dr. Wells were unsuccesstul. Call placed to Dr. Hansen to address persistent AF RVR: Cardizem bolus and gtt started as well as Digoxin 0.25 IV ( see eMAR). Pt alert and moves all extremities, soft wrist restraints to protect lines as pt is confused, not following any commands, and in constant motion. Lungs clear, dim to bases on 2 L/nc upon admission, now increased to 4 L/nc, sats > 92%. Absent BS, abdomen soft. Wilkinson placed at 2100 with dark nigel urine with sediment. Pt is pale, clammy and has a rash all over his skin: arms, trunk, LE's. Pt is also mottled from his abdomen down. Initial core Temp 101.7. BP 110-120's/60's. Plan: IR for LP tomorrow per Dr. Wells.
[2020-08-24] MEDS: DILTIAZEM HCL 5 MG/ML 5 ML VIAL IV PRN ×3 (00:02→17:11)
[2020-08-24] MEDS: LACTATED RINGER'S 1,000 ML INJ SCH ×3 (00:03→09:06)
--- NOTE | 2020-08-24 00:07 | Consultation ---
DATE OF CONSULTATION: Neurology Consultation REASON FOR CONSULTATION: For seizures, confusion, delirium, status epilepticus, fevers, and possible meningitis. HISTORY OF PRESENT ILLNESS: The patient is a 64-year-old male, who presents in AFib with RVR, acute renal failure with significant dehydration, found also to have significant thrombocytopenia and leukocytosis, apparently septic reaction of some sort. He was not fully predominance to his white blood cell count, differential. I was asked to evaluate him for neurological changes, tremors, altered mental status, and fever. The patient seems to be getting sick for about a week, not feeling well. About 3 days ago, he started having nausea and vomiting, saw and then seems to have declined. He was brought into the emergency room for further evaluation and care. PAST MEDICAL HISTORY: He has a history of hypertension and AFib and scabies rash in the lower extremities. ALLERGIES: HE HAS NO KNOWN DRUG ALLERGIES. He is not able to give past medical history, family history, or review of systems. PHYSICAL EXAMINATION: VITAL SIGNS: Show temperature of 99.5, heart rate of 156, all down to 132, tachycardia, he is breathing tachypneic at 27, his blood pressure fluctuates between 104/92 to 130s/95, he is saturating 100% on room air. HEENT: His extraocular muscles are intact to doll's eyes. His pupils are dilated at 5 mm, but did respond to light. He does not have nuchal rigidity on my exam. He is able to his neck without much difficulty, jaw and chin to chest. EXTREMITIES: His strength is 5/5, response to noxious stimulation and even minimal stimulation all 4 extremities. His reflexes are symmetric. His toes are upgoing. ABDOMEN: Soft. CARDIOVASCULAR: Tachycardic. NEUROLOGIC: He is following no commands, not verbalizing. He is breathing hard and during his evaluation, he had a generalized tonic seizure. ASSESSMENT AND PLAN: Mr. Francisco Simmons comes in to my attention for seizure, mental status changes, leukocytosis, thrombocytopenia, concern for meningitis. He is already on antibiotics and antivirals . We will start antiepileptics and we took him to lumbar puncture successfully at bedside. We are going to load with antiepileptic therapy as well to make sure that his seizures are controlled. We will get an EEG stat tomorrow morning and based on imaging review, had initial brain CT that shows no substantial changes or abnormalities, but there is significant motion artifact limiting. MD SAMSON SCHAFER/RUDDY /[id number]
--- NOTE | 2020-08-24 00:32 | History and Physical ---
HISTORY OF PRESENT ILLNESS: Mr. Simmons is a 64-year-old male, I was called by for a platelet count of 20,000. The patient had presented with a complaint of elevated heart rate, also complained of nausea, vomiting, and generalized weakness to the EMT. The patient was found to have difficulty getting his words out as per the , speech abnormality and confusion. Subsequently, the patient was brought in to the ER. SOCIAL HISTORY: Could not be obtained. FAMILY HISTORY: Could not be obtained. ALLERGIES: PROMETHAZINE. The patient had presented with atrial fibrillation with rapid ventricular response. Past illness; history of atrial fibrillation and history of hypertension. REVIEW OF SYSTEMS: Could not be obtained. However, from reviewing the lab. HEENT: Normal. CARDIAC: History of atrial fibrillation. RESPIRATORY: Looks like congestive heart failure at least by chest x-ray. GI: History of nausea and vomiting prior to admission. : The patient does have a left kidney stone, right kidney cyst. PHYSICAL EXAMINATION: GENERAL: Moderately built male. VITAL SIGNS: Pulse 130, blood pressure of 110/80, jaundiced. No palpable adenopathy. HEART: Irregularly irregular. LUNGS: Few crepitations. ABDOMEN: Soft. RECTAL: Could not be done. CENTRAL NERVOUS SYSTEM: Could not be examined properly. LABORATORY DATA: Hemoglobin of 13.2, hematocrit 37.8, MCV 84.4, MCHC 34.9, RDW 14.4, and white count of 14,680, which increased to 17,810 with a marked shift to the left with 85% neutrophils, platelets reported at 22,000. Coagulation profile reveals the INR to be 1.08. Chemistry shows the sodium to be 136, potassium 4.1, chloride is 101, CO2 of 15, calcium low at 7.6, bilirubin high at 4.5, SGOT high at 140, SGPT high at 136, alkaline phosphatase high at 253. CK is reported normal at 2.3. BNP slightly high at 194.6, total protein of 5.3, albumin of 2.4. Lactic acid reported initially to be high at 2.4, however, repeat is 1.9. Coagulation profile, INR of 1.08. COVID-19 is not available at this time for review. IMAGING DATA: Imaging consists of CT of the brain which was reported essentially normal. CT of the abdomen reveals a right renal cyst, left renal stone, diverticulosis coli and perhaps a sebaceous cyst on the chest wall. IMPRESSION: 1. Leukemoid reaction. 2. Thrombocytopenia. 3. Renal failure. 4. High LFT. 5. Hypoalbuminemia. 6. Hypoproteinemia. 7. Hypocalcemia. 8. Transient lactic acidosis. 9. Bibasilar atelectasis. 10. Anterior chest wall 3.4 x 1.8 cm subcutaneous lesion consistent with sebaceous cyst. 11. Right renal cyst. 12. Left kidney 3 mm stone. 13. Diverticulosis coli. 14. Degenerative arthritis. 15. Congestive heart failure. 16. Hepatorenal syndrome. 17. History of atrial fibrillation. PLAN, COMMENTS, AND SUGGESTIONS: 1. Sepsis in this patient definitely is a possibility, even though the chest x-ray is reported as mild congestive heart failure. I suggest strongly to do a CAT scan of the chest to make sure he did not have aspiration pneumonia, as initial history by from the is that he was vomiting. 2. The hepatic dysfunction and renal failure definitely are of concern. Nephrology and GI consultations are suggested. 3. This seems to be no suggestion of DIC at the present time, although this might change as the INR is normal. I have suggested the patient to have a serum ammonia level, a D-dimer, and fibrinogen level. 4. Infectious Disease is on the case, Cardiology is on the case, Pulmonology is on the case as well as the Nephrology. 5. Dr. Will had called me to have a central line possibility of platelet transfusion was raised. I had suggested platelet transfusion for the central line for sure. 6. The other question Dr. Will had was could this be hemolytic uremic syndrome TTP. This is definitely not TTP as there is no suggestion of hemolysis in this patient. The hemoglobin remained absolutely normal. however can be done if the patient shows any signs of hemolysis. Thank you very much for allowing me to participate in management of this patient. I will confine myself to Hematology only. A brief discussion was carried out with Dr. Hayden Soni as far as the workup and treatment. Dictated by Maira Ya MD MD MAHOGANY Soliman/RUDDY /[id number] cc: MD Abdirizak Cornell MD Mohamed O Jeroudi, MD Louis M Hamer, MD
[2020-08-24] MEDS: DIGOXIN INJ 0.25 MG/ML 2 ML AMP IV PRN ×2 (02:00→09:37)
[2020-08-24] MEDS: CEFTRIAXONE SOD 2 GM/NS 100 ML 100 ML IV SCH ×2 (03:00→15:53)
[2020-08-24] MEDS: AMPICILLIN SOD 2 GM/NS 100ML 100 ML IV SCH ×2 (04:00→19:21)
[2020-08-24] MEDS: DILTIAZEM HCL 125 ML IV SCH ×2 (05:30→09:31)
[2020-08-24] MEDS ORDERED: SODIUM CHLORIDE 0.9% 100 ML ONE (05:41)
[2020-08-24] MEDS ORDERED: DILTIAZEM HCL IV 5MG/ML 25 ML VIAL ONE (05:41)
[2020-08-24] MEDS ORDERED: NOREPINEPHRINE 8 MG/D5W 250 ML 250 ML ONE (06:19)
[2020-08-24] MEDS ORDERED: BENZOCAINE 20% SPR 60 ML CAN ONE (06:22)
[2020-08-24] MEDS ORDERED: ALBUMIN 25% 12.5GM 50ML 50 ML IV ONE (07:11)
[2020-08-24] MEDS ORDERED: MIDAZOLAM HCL 5MG/ML 10ML VIAL 100 ML IV ONE (07:17)
--- NOTE | 2020-08-24 07:17 | Operative Report ---
DATE OF PROCEDURE: SURGEON: Edmond Benitez MD PREOPERATIVE DIAGNOSIS: Acute respiratory failure. POSTOPERATIVE DIAGNOSIS: Acute respiratory failure. CONSENT: Consent was deemed emergent due to the hemodynamic instability and respiratory distress. DESCRIPTION OF PROCEDURE: The patient was placed in a supine position. He was on BiPAP initially. Cetacaine spray was used to anesthetize the posterior pharynx and glottis. He was then given etomidate 20 mg. An Ambu bag was used to ventilate the patient to increase his saturations. A glide scope was used to visualize glottis. A 4.0 Mac blade was used. An 8.0 endotracheal tube was passed on the first attempt. There was good CO2 return. There were equal breath sounds bilaterally. COMPLICATIONS: None. ESTIMATED BLOOD LOSS: None. Edmond Benitez MD [facility]/MODL /[id number]
[2020-08-24 07:27] LABS: ANION GAP 22.2 mmol/L (8-16); CALCIUM 7.1 mg/dL (8.4-10.2); CREATININE, SERUM 7.8 mg/dL (0.72-1.25); POTASSIUM 4.2 mmol/L (3.5-5.1)
[2020-08-24 07:28] LABS: BASOPHILS # (AUTO) 0.2 (0.0-0.1); BASOPHILS % 0.8 % (0.0-1.0); HEMATOCRIT 38.1 % (38.2-49.6); HEMOGLOBIN 13.3 g/dL (14.0-18.0); LYMPHOCYTES # (AUTO) 2.4 (1.0-3.2); LYMPHOCYTES % 10.8 % (18.0-39.1); MEAN CORPUSCULAR HEMOGLOBIN 29.4 pg (28-32); MEAN CORPUSCULAR HGB CONC 34.9 g/dL (31-35); MEAN CORPUSCULAR VOLUME 84.3 fL (81-99); MONOCYTES # (AUTO) 1.1 (0.2-0.8); NEUTROPHILS # (AUTO) 17.9 (2.1-6.9); RED BLOOD COUNT 4.52 x10e6/uL (4.3-5.7); RED CELL DISTRIBUTION WIDTH 14.5 % (11.7-14.4)
[2020-08-24] MEDS ORDERED: ALBUMIN 25% 25GM 100ML 0.25 GM/ML BTL IV ONE ×2 (07:30→17:30)
[2020-08-24 07:34] LABS: PLATELET COUNT 32 x10e3/uL (140-360)
--- NOTE | 2020-08-24 07:40 | Diagnostic Imaging Report ---
EXAMINATION: CHEST SINGLE (PORTABLE) INDICATION: ^Intubation ^[id number] ^0702 COMPARISON: 08/23/2020 FINDINGS: AP view TUBES and LINES: Interval intubation with tip of endotracheal tube approximately 5.8 cm above leona. Stable right internal jugular central line. LUNGS: Lungs are well inflated. Again seen bilateral airspace opacities, slightly increased from prior exam. PLEURA: No significant pleural effusion or pneumothorax. HEART AND MEDIASTINUM: The cardiomediastinal silhouette is enlarged. BONES AND SOFT TISSUES: No acute osseous lesion. Soft tissues are unremarkable. UPPER ABDOMEN: No free air under the diaphragm. IMPRESSION: Interval intubation. Again seen bilateral airspace opacities, slightly increased from prior x-ray, representing worsening edema and/or pneumonia. Signed by: Dr. Fermin Swift MD on 08/24/2020 7:36 AM
[2020-08-24 07:53] LABS: CLARITY,URINE CLOUDY (CLEAR); COLOR,URINE YELLOW (YELLOW); LEUKOCYTE ESTERASE ,URINE NEGATIVE (NEGATIVE); NITRITE,URINE NEGATIVE (NEGATIVE); PROTEIN,URINE DIPSTICK 2+ (NEGATIVE)
[2020-08-24 07:54] LABS: BILIRUBIN,URINE SMALL (NEGATIVE); KETONES,URINE NEGATIVE (NEGATIVE); URINE UROBILINOGEN 1 mg/dL (0.2 - 1)
--- NOTE | 2020-08-24 07:54 | NUR ---
Call to Dr. Benitez re pt's respiratory status at 0520: pt abdominal breathing in the 35-40 range, desaturating to 79-85%. New orders for stat CXR, ABG and to place pt on BiPap. Once pt placed on bipap, pt became hypotensive: Levophed started ~0600 titrated up to 30 mcg/min, Cardizem on hold. ABG resulted (see Lab): Dr. Benitez intubated the pt by 0630 using the glidascope, Etomidate 20 mg IV and Versed 2 mg IV. Pt continued to breathe in the 40's with vecuronium 20 mg IV and another Versed 2 mg IV given with versed gtt ordered. Pressures remained soft with albumin 25 gm in progress. Post CXR complete, UA sent. Report to wilfredo Curtis RN.
[2020-08-24] MEDS ORDERED: SODIUM CHLORIDE 0.9% 1000ML 1,000 ML ONE (08:04)
[2020-08-24 08:06] LABS: BACTERIA,URINE FEW /HPF; EPITHELIAL CELLS,URINE FEW /LPF; RBC,URINE >50 /HPF (0-5)
[2020-08-24 08:30] LABS: ABG HCO3 18 mmol/L (22-26); ABG PCO2 46 mmHg (35-45); ABG PH 7.22 (7.35-7.45); ABG PO2 56 mmHg (80-105)
[2020-08-24 08:31] LABS: ABG TCO2 20
--- NOTE | 2020-08-24 08:46 | NUR ---
DR GANNON HERE Addendum: 08/24/20 at 0851 by Ever Xie RN Dr Ya
--- NOTE | 2020-08-24 09:00 | NUR ---
respiratory difficulty overnight required intubation vs 101.1 115 [id number] 90/79 nonresponsive to examiner pupils sluggish corneals intact but sluggish tachycardic vented abd soft some type of lesion in ble , scabies rash? reflexes diminished a/p sepsis - on antibiotics thrombocytopenia - infectious/inflamatory reaction, he was given 2 units yesterday prior to LP attmept, however LP was no successful (possibly due to third spacing or dehydration) his platelets are gaing below 50, would need further infusion before repeat LP attmept continue to treat empricially for bacteria and viruses loaded with aed renal failure- primary managing patient critically ill 30 min spent evaluating him at bedside. [id number]
--- NOTE | 2020-08-24 09:33 | Progress Note ---
DATE: 08/24/2020 SUBJECTIVE: Still in intensive care unit. I have been consulted for thrombocytopenia, however, his platelets at 337,000 done on 08/23. Hemoglobin is reasonable at 99.2. White count is still slightly high at 13,850. Chemistry is done, remarkably well. BUN and creatinine are being 19 and 0.88 respectively. Imaging; the last chest x-ray was done on 08/20, which did not show any clinical change. I will confine myself to Hematology. Hematologically, he is stable. As dictated multiple times he is a hospice candidate. MD MAHOGANY Patterson/RUDDY /[id number]
[2020-08-24] MEDS: LEVETIRACETAM 500MG/5ML VIAL 500 MG in SODIUM CHLORIDE 0.9% 100 ML 100 ML IV SCH ×2 (09:36→21:13)
--- NOTE | 2020-08-24 09:46 | Diagnostic Imaging Report ---
TECHNIQUE: Frontal view of the chest. INDICATION: ^[id number] ^0540 ^SHORTNESS OF BREATH COMPARISON: Prior day. DISCUSSION: Limited evaluation due to portable technique. Lines and hardware: Stable right internal jugular nontunneled hemodialysis catheter. Overlying EKG leads are noted. Heart and mediastinum: Stable. Lungs and pleura: Interval worsening of bilateral perihilar predominant airspace opacities. Negative for new large effusion or pneumothorax. Soft tissues and bones: No acute abnormality. IMPRESSION: Interval worsening of multifocal bilateral patchy airspace opacities. Signed by: Felix Simmons MD on 08/24/2020 9:43 AM
--- NOTE | 2020-08-24 10:03 | Progress Note ---
DATE: Pulmonary Critical Care Progress Note SUBJECTIVE: The patient was evaluated by Nephrology, Infectious Disease and Neurology yesterday. A Trialysis line was placed. The patient has received several liters of LR during the night. The urine output has improved. The patient has had about 30 to 40 mL of urine output. The patient had worsening respiratory problems this morning and required endotracheal intubation. He is now on a mechanical ventilator. PHYSICAL EXAMINATION: VITAL SIGNS: The blood pressure is now 108/64 with a heart rate of 110. It is atrial fibrillation. He is on Levophed at 25 mcg. The T-max is 101.3. He remains on a ventilator with a PRVC mode of ventilation at a rate of 28 and a tidal volume of 450. His FiO2 is set at 70%. His PEEP is set at 10. HEENT: Shows no facial swelling or erythema. LYMPHATIC: Shows no submandibular, cervical, or supraclavicular adenopathy. CARDIAC: Reveals irregularly irregular rhythm with normal S1, S2. LUNGS: Auscultation of lungs shows decreased breath sounds at the bases. There is no wheezing. ABDOMEN: Soft, nontender. There is no rebound or guarding. EXTREMITIES: Shows no leg edema or calf tenderness. There is no cyanosis or clubbing. SKIN: Shows a rash on the trunk as well as lower extremities. LABORATORY DATA: BUN to creatinine ratio is 109 to 7.8. The carbon dioxide is 15 and the other electrolytes are within normal limits. Albumin is 2.5. The white blood cell count is 21.8, hemoglobin is 13.3. The platelet count is 32. RADIOGRAPHIC DATA: Chest x-ray shows bilateral airspace opacities. IMPRESSION: 1. Aspiration pneumonia with septic shock present on admission. 2. Acute renal failure. 3. Gastroenteritis. 4. Liver abnormalities secondary to sepsis. 5. Severe thrombocytopenia secondary to sepsis. 6. Metabolic encephalopathy. 7. Seizure. PLAN: 1. Continue Levophed and give additional fluids as needed. 2. Continue current antibiotics and await culture results. 3. Continue current ventilator settings and repeat ABG. 4. Consider dialysis depending on clinical course. 5. Possible lumbar puncture today. 6. Continue Versed for sedation. 7. Enteral feedings. 8. Deep vein thrombosis prophylaxis. Case discussed with , Cardiology, Nephrology, Infectious Disease, nursing and Respiratory. Greater than 35 minutes in direct critical care time. MD ARVIND Cisneros/RUDDY /[id number]
--- NOTE | 2020-08-24 10:08 | Progress Note ---
DATE: 08/24/2020 Progress Note In Intensive Care Unit SUBJECTIVE: Francisco Simmons is a 64-year-old male, was referred to me for thrombocytopenia for detailed consult. Please review my dictation dated 08/23/2020. The patient was given platelets by the food quality tester, for what I was told lumbar puncture as per the instructions of the Infectious Disease sales and leasing consultant also for his central line. The platelet count went up to 87, however, is back down to 32. The patient's hemoglobin is still 13.3 with a baseline being 13.2 denoting again no hemolysis. The white count is high at 21,790, retic response is very low at 0.6 again against any hemolysis. Chemistry today, the kidney functions have gotten worse. BUN 109 and creatinine 7.8. Nephrology is on the case. LDH is slightly high at 524; however, it has to be noted that the patient has high liver function with a high bilirubin. Lactic acid yesterday had come down to only 1.9. Ammonia level, which I have asked for, is extremely high at 82, the high normal being 35. Coagulation profile, the D-dimer is high at 16.25, fibrinogen; however, remains reasonable at 324, anything about 200 being reasonable. Imaging consisting of chest x-ray shows the patient to be intubated, again bilateral airspace opacities in my clinical judgment, highly suggestive of aspiration pneumonia as the history indicated. Urinalysis had shown multiple wbc's and some bacteria. Hematologically, the patient is stable at this time; however, in general his condition is deteriorated. I will confine myself to Hematology only as the possibility of TTP was raised by the food quality tester for [id number]; however, this is pending. Clinically, this is not syndrome. Thank you very much for allowing me to participate in management of this patient. MD MAHOGANY Patterson/MODL /[id number] cc: Hayden Soni MD
[2020-08-24] MEDS: NOREPINEPHRINE 8 MG/D5W 250 ML 250 ML IV SCH ×2 (11:05→15:54)
[2020-08-24 11:20] LABS: ABG HCO3 18 mmol/L (22-26); ABG PCO2 42 mmHg (35-45); ABG PH 7.24 (7.35-7.45); ABG PO2 92 mmHg (80-105); ABG TCO2 19
[2020-08-24 13:03] LABS: HYPOCHROMASIA SLIGHT; LYMPHOCYTES % (MANUAL) 15 % (19-48); MONOCYTES % (MANUAL) 7 % (3.4-9.0); NEUTROPHILS % (MANUAL) 75 % (40-74); POLYCHROMASIA FEW
[2020-08-24 13:04] LABS: BURR CELLS SLIGHT; PLATELET ESTIMATE MARKEDLY DECREASED; RBC MORPHOLOGY COMMENT ABNORMAL
[2020-08-24] MEDS ORDERED: VECURONIUM BROMIDE FOR INJ 20 MG VIAL IV ONE (13:13)
[2020-08-24] MEDS ORDERED: MIDAZOLAM HCL 2 MG/2 ML VIAL INJ ONE (13:13)
[2020-08-24] MEDS: BENZTROPINE MESYLATE 1 MG TAB PO SCH ×2 (13:17→17:00)
[2020-08-24] MEDS: ACETAMINOPHEN 325 MG SUPP PR PRN (14:31)
--- NOTE | 2020-08-24 15:39 | NUR ---
lumbar xray done at portable at bedside per staff
--- NOTE | 2020-08-24 15:45 | Diagnostic Imaging Report ---
Lumbar spine, 3 portable views INDICATION: ^eval bony anatomy lower back ^20200824 ^1520 Comparison: None available. Discussion: There are 5 lumbar-type nonrib-bearing vertebral bodies identified. Negative for significant compression or displaced fracture deformity. There is preservation of the normal lordosis. Focal advanced degenerative changes noted at L5-S1 with disc space narrowing. Posterior facet arthropathy is noted. Sacrum is obscured by overlying bowel gas on AP view. Hip joint spaces are relatively well-maintained. SI joints are patent. IMPRESSION: Focal moderate to severe degenerative changes at L5-S1 with disc space narrowing, vacuum phenomenon and posterior facet arthropathy. Signed by: Felix Simmons MD on 08/24/2020 3:41 PM
--- NOTE | 2020-08-24 16:20 | NUR ---
INFECTIOUS DISEASE PROGRESS NOTE DR. LORA SO HISTORY OF PRESENT ILLNESS: This patient is a 64-year-old gentleman. Apparently, he has been sick for a week after nausea, some vomiting, not feeling well. Three weeks ago, apparently he saw nausea and vomiting, he saw his doctor through a virtual visit. He was given Zofran with some relief, but then it got worse again. He went [facility] and he was evaluated. His blood pressure was on low side and he having these tremor. He was also found to have atrial fibrillation. He had acute renal failure. He was seen in the emergency room, he was found to have thrombocytopenia, acute renal failure, and fever. The patient is being admitted. I am asked to see him. The patient is currently alert. He knows he is in the hospital source of information. I had called his . PAST MEDICAL HISTORY: Otherwise hypertension, atrial fibrillation, apparently has some scabbed skin rash for which he saw filenet admin, took the biopsy on the lower extremity. ALLERGIES: NKA. REVIEW OF SYSTEMS: unable to obtain due to intubated/sedated PHYSICAL EXAMINATION: GENERAL: Intubated, sedated VITALS: critically ill in ICU, per chart HEENT: Normocephalic. atraumatic NECK: Supple. no JVD HEART: S1-S2. no s3, s4 ABDOMEN: Soft, bowel sounds present. soft EXTREMITIES: No edema. IMPRESSION: Aspiration PNA Septic Shock present on admission Concern for Meningoencephalitis -recommend LP Severe thrombocytopenia secondary to sepsis PTEROS Gastro enteritis PLAN: Rocephin Ampicillin Acyclovir pending LP Guarded prognosis Aline Christy MSN, ENTRY REP, AGACNP-BC dictated for Lora So M.D
--- NOTE | 2020-08-24 16:21 | NUR ---
Dr Benitez here informed pt max on Levophed 30mcg/min and Dialysis starting per Dr Lewis and increased LR maintenance to 125cc/hr
[2020-08-24] MEDS ORDERED: HEPARIN SOD (PORCINE) 1000 UNIT/ML SDV IV PRN (16:30)
[2020-08-24] MEDS ORDERED: MANNITOL 25% 12.5GM/50 ML VIAL IV PRN (16:30)
[2020-08-24] MEDS ORDERED: SODIUM CHLORIDE 0.9% 1000ML 2,000 ML IV PRN (16:30)
--- NOTE | 2020-08-24 16:53 | NUR ---
Dr Cobian here
--- NOTE | 2020-08-24 17:18 | NUR ---
Phoned Dr Benitez informed of bp 79/46 and dialysis in progress Levophed at 30mcg/min , resp 31 Versed at 3mg ,,,Give Albumin 50gm now.
[2020-08-24] MEDS ORDERED: CALCIUM CHLORIDE 13.6 MEQ in SODIUM CHLORIDE 0.9% 100 ML 100 ML IV ONE ×2 (17:30→21:00)
[2020-08-24] MEDS ORDERED: ALBUMIN 25% 25GM 100ML 200 ML IV ONE (18:00)
[2020-08-24 19:23] LABS: ABG HCO3 14 mmol/L (22-26); ABG PCO2 22 mmHg (35-45); ABG PH 7.41 (7.35-7.45); ABG PO2 178 mmHg (80-105); ABG TCO2 15
--- NOTE | 2020-08-24 19:46 | NUR ---
Dr. Benitez notified of ABG results. New orders received for bicarb gtt and to repeat ABG.
[2020-08-24] MEDS ORDERED: SODIUM BICARBONATE 8.4% SYRING 150 ML in DEXTROSE 5% 1,000 ML IV SCH (20:00)
[2020-08-24] MEDS: MIDAZOLAM HCL 5MG/ML 10ML VIAL 100 ML IV PRN (20:20)
--- NOTE | 2020-08-24 20:45 | Progress Note ---
DATE: 08/24/2020 Renal Progress Note SUBJECTIVE: Events over the past 24 hours have been noted. The patient was intubated and he is now on a ventilator. He is sedated. He is also on maximum dose pressor. PHYSICAL EXAMINATION: VITAL SIGNS: His blood pressure is about 94/57, and his temperature is 102 degrees. In and out, it looks like he has 3504 in and 680 out. HEENT: No increased JVD. The patient is intubated. He is on a ventilator. CARDIOVASCULAR: Tachycardia. Regular rhythm. LUNGS: Decreased breath sounds and coarse breath sounds bilaterally. ABDOMEN: Positive bowel sounds. EXTREMITIES: No edema. SKIN: The patient does have some reticular type of rash on the lower part of the legs and also on the lower part of the abdomen, somewhat erythematous on the abdomen, probably could be maculopapular. LABORATORY RESULTS: White count is 21.7, hemoglobin and hematocrit 13 and 38 respectively, platelet count 32,000. Urinalysis shows 2+ protein and greater than 50 red cells, 11-20 white cells, 2+ protein, large blood. Sodium 140, potassium 4.2, chloride 107, bicarbonate 15, BUN and creatinine 109 and 7.8 respectively, calcium 7.1. IMPRESSION: 1. Acute kidney injury. 2. Metabolic acidosis. 3. Large anion gap metabolic acidosis. 4. Hypovolemia. 5. Shock. 6. Thrombocytopenia. 7. Sepsis. PLAN: The patient's renal function is worsening and he is now in shock. He is on vasopressor. He is hemodynamically quite unstable. On the blood gas, pH was 7.24, pCO2 of 42, bicarbonate 18. The patient has a metabolic acidosis. He is getting lactated Ringer. Hematology has been consulted to see if this is a TTP. The patient's platelets are somewhat improved today. The patient does need dialysis. I will try to maybe dialyze the patient. However, his blood pressure is very low and he is on multiple pressors. I doubt that dialysis can be successful, but we may give it a try anyway for chemical clearance. The patient's prognosis is very very poor at this time. Ather MD MARC Lewis/RUDDY /[id number]
[2020-08-24] MEDS: ACYCLOVIR SODIUM INJ 500 MG in SODIUM CHLORIDE 0.9% 100 ML 100 ML IV SCH (21:35)
[2020-08-24] MEDS: AZITHROMYCIN 500MG/NS 250 ML 250 ML IV SCH (23:02)
[2020-08-24 23:09] LABS: ABG HCO3 21 mmol/L (22-26); ABG PCO2 33 mmHg (35-45); ABG PO2 118 mmHg (80-105); ABG TCO2 22
--- NOTE | 2020-08-24 23:22 | NUR ---
Dr. Benitez on unit rounding. saw ABG results. New orders received to decrease bicarb gtt to 50 mL/hr. MD changed vent settings and RT updated on changes.
[2020-08-25] VITALS (30 sets, daily range): BP systolic 87–150; BP diastolic 39–67
--- NOTE | 2020-08-25 | NUR ---
Dr. Benitez aware of high volume of TF residuals and color/consistency- dark brown, coffee ground?, stated to hold TF until AM and will reevaluate.
[2020-08-25] MEDS ORDERED: DILTIAZEM HCL IV 5MG/ML 25 ML VIAL ONE (00:45)
[2020-08-25] MEDS: ACETAMINOPHEN 325 MG SUPP PR PRN (01:26)
[2020-08-25] MEDS: MIDAZOLAM HCL 5MG/ML 10ML VIAL 100 ML IV PRN ×3 (01:28→13:24)
[2020-08-25] MEDS: NOREPINEPHRINE 8 MG/D5W 250 ML 250 ML IV SCH (03:00)
[2020-08-25] MEDS: CEFTRIAXONE SOD 2 GM/NS 100 ML 100 ML IV SCH ×2 (03:57→14:57)
[2020-08-25] MEDS: DILTIAZEM HCL 125 ML IV SCH (04:19)
[2020-08-25 04:54] LABS: BASOPHILS # (AUTO) 0.1 (0.0-0.1); BASOPHILS % 0.3 % (0.0-1.0); EOSINOPHILS # (AUTO) 0.1 (0.0-0.4); EOSINOPHILS % 0.5 % (0.0-6.0); HEMATOCRIT 35.6 % (38.2-49.6); HEMOGLOBIN 12.2 g/dL (14.0-18.0); LYMPHOCYTES # (AUTO) 2.5 (1.0-3.2); LYMPHOCYTES % 10.6 % (18.0-39.1); MEAN CORPUSCULAR HEMOGLOBIN 28.8 pg (28-32); MEAN CORPUSCULAR HGB CONC 34.3 g/dL (31-35); MONOCYTES # (AUTO) 1.9 (0.2-0.8); MONOCYTES % 8.1 % (4.4-11.3); NEUTROPHILS # (AUTO) 18.5 (2.1-6.9); RED BLOOD COUNT 4.24 x10e6/uL (4.3-5.7)
[2020-08-25 04:56] LABS: PLATELET COUNT 35 x10e3/uL (140-360)
[2020-08-25] MEDS: AMPICILLIN SOD 2 GM/NS 100ML 100 ML IV SCH ×2 (05:00→15:11)
[2020-08-25 05:14] LABS: ALBUMIN 2.3 g/dL (3.5-5.0); CALCIUM 7.2 mg/dL (8.4-10.2); CREATININE, SERUM 6.73 mg/dL (0.72-1.25)
--- NOTE | 2020-08-25 06:35 | NUR ---
Dr. Ya notified of critical plt level this AM, no new orders received.
--- NOTE | 2020-08-25 07:43 | NUR ---
intubated, on pressors, sedated vs 89/46 89 102 corneal edema no nuchal rigidity rrr vented/ronchus and mechanical respratoy support pupils sluggish but reactive abd soft ble have an odd rash a/p suspected meningitis, platelets too low for LP on broad antibotics and antivirals CT CAP - incidental findings X ray L spine- signfiaicnt degenerative disease on aed continue broad antibiotic coverage crtiically ill
--- NOTE | 2020-08-25 08:31 | Diagnostic Imaging Report ---
Chest, 1 view, 08/25/2020. History: Sepsis, intubation. Comparison: 08/24/2020. Findings: The cardiac silhouette is unchanged. Diffuse bilateral hazy opacities are present obscuring the right hemidiaphragm, increased compared to prior exam. ET tube and right IJ catheter are unchanged in position. A new NG tube terminates below the left hemidiaphragm. There are no acute osseous or soft tissue abnormalities. Impression: Increased bilateral pulmonary opacities consistent with worsening edema/pneumonia. Signed by: Andrei Field on 08/25/2020 8:27 AM
[2020-08-25] MEDS: LEVETIRACETAM 500MG/5ML VIAL 500 MG in SODIUM CHLORIDE 0.9% 100 ML 100 ML IV SCH ×2 (08:47→21:00)
[2020-08-25] MEDS: BENZTROPINE MESYLATE 1 MG TAB PO SCH ×2 (08:47→17:42)
[2020-08-25 08:58] LABS: ABG HCO3 21 mmol/L (22-26); ABG PCO2 33 mmHg (35-45); ABG PH 7.42 (7.35-7.45); ABG PO2 151 mmHg (80-105); ABG TCO2 22
--- NOTE | 2020-08-25 09:03 | Progress Note ---
DATE: SUBJECTIVE: The patient is currently on mechanical ventilation. He is on PRVC mode of ventilation. A sedimentation rate of 28 with a tidal volume of 480, and a PEEP of 8. The FiO2 is set at 65%. The patient received dialysis yesterday. Levophed is decreased to 30 mcg. He remains on Versed at 8 mg per hour. PHYSICAL EXAMINATION: VITAL SIGNS: Blood pressure is 105/54, respiratory rate is 28 with the above-mentioned settings, the pulse is 85. HEENT: Shows no facial swelling or erythema. LYMPHATIC: Shows no submandibular, cervical, supraclavicular adenopathy. CARDIAC: Reveals regular rate and rhythm with normal S1, S2. LUNGS: Auscultation of lungs reveals crackles and rhonchi at the bases. There is no wheezing. ABDOMEN: Soft and nontender. There is no rebound or guarding. EXTREMITIES: Shows no leg edema or calf tenderness. LABORATORY DATA: White blood cell count is 23.4 and hemoglobin is 12.2. The platelet count is 35. The BUN to creatinine ratio is 88 to 6.73. The carbon dioxide is 20 and the other electrolytes are within normal limits. Albumin is 2.3. RADIOGRAPHIC DATA: Lumbar spine surgery shows moderate to severe degenerative changes at L5-S1. IMPRESSION: 1. Acute renal failure. 2. Aspiration pneumonia with septic shock present on admission. 3. Ischemic hepatitis. 4. Gastroenteritis. 5. Severe thrombocytopenia. 6. Metabolic encephalopathy. 7. Seizure. PLAN: 1. Continue current antibiotics. 2. Wean Levophed. 3. Continue to wean Versed. 4. Repeat ABG and adjust ventilator settings as tolerated. 5. Wean bicarbonate drip. 6. Dialysis as needed. 7. Enteral feedings. 8. Arrange for lumbar puncture through Interventional Radiology. Greater than 35 minutes in direct critical care time. Edmond Benitez MD [facility] /[id number]
[2020-08-25] MEDS ORDERED: SODIUM CHLORIDE 0.9% 250ML 250 ML ONE (09:26)
--- NOTE | 2020-08-25 09:30 | NUR ---
UNABLE TO ENTER BARTONELLA HENSELAE TEST, SPOKE TO RESIN COATER ORDER ENTERED THROUGH LAB SYSTEM.
--- NOTE | 2020-08-25 09:58 | Operative Report ---
DATE OF PROCEDURE: SURGEON: Edmond Benitez MD PROCEDURE: Arterial line placement under ultrasound guidance. PREOPERATIVE DIAGNOSES: Acute renal failure and hypotension. POSTOPERATIVE DIAGNOSES: Acute renal failure and hypotension. CONSENT: Consent was obtained from family. MEDICATIONS: The patient was on Versed drip and sedated at the time of the procedure. DESCRIPTION OF PROCEDURE: The right wrist was prepped sterilely with chlorhexidine. A sterile drape was used as well as sterile gloves and mask. An ultrasound machine was used to locate the right radial artery. The ulnar artery was also located and there was good collateral circulation. The radial artery was cannulated under direct visualization with an ultrasound using a 20-gauge needle. A wire was passed through the needle and a 20-gauge catheter was passed over the wire by the Seldinger technique. There was good blood return and a normal arterial waveform. COMPLICATIONS: None. ESTIMATED BLOOD LOSS: None. Edmond Benitez MD [facility] /[id number]
--- NOTE | 2020-08-25 10:10 | NUR ---
Candy Butcher called pt's , Stephanie, ([phone] voice mailbox full; [phone] no answer) and left message including mail caller's office phone number. Will follow as able. CLAUDIA [facility] Department O: [phone]
--- NOTE | 2020-08-25 10:48 | Progress Note ---
DATE: SUBJECTIVE: Mr. Simmons remains in intensive care unit, intubated and sedated. Events noted. I have discussed with Dr. Benitez. Also, I called the to get further information. Apparently, the patient was in usual state of health. He lives in a trailer. They got a new kitten 5 months ago. There is no hunting or camping. The patient, who has been sick for a week, which confirmed the first couple days ago from the . The patient is currently intubated and sedated. He is on PRVC mode. His rate is 28. Tidal volume 480, PEEP of 8, FiO2 65%. He received dialysis yesterday. He is on Levophed and Versed. His Levophed is less today. PHYSICAL EXAMINATION: GENERAL: He is intubated and sedated. VITAL SIGNS: Blood pressure 105/60 and respiration 28. HEENT: Normocephalic. Not icteric. NECK: Supple. CHEST: Crackles bilateral. HEART: S1 and S2. ABDOMEN: Soft. Bowel sounds present. No tenderness. EXTREMITIES: No edema. SKIN: No rash. LABORATORY DATA: His white cell is 23, his hemoglobin 12, and his platelet is 35. His white count jumped up to 23.4, hemoglobin 12, and hematocrit 35. His sodium 138, potassium 4, and creatinine of 6.7. His calcium 7.2. AST of 62 and ALT 55. His HIV was negative. Cultures remains negative. His CT of abdomen and pelvis showed sebaceous cyst and renal cyst. He is currently on ampicillin, Rocephin, azithromycin, and acyclovir. IMPRESSION: 1. Sepsis on admission, etiology still unclear. Fever is about the same. Cultures are negative. We will check him for toxo, CMV, EBV, Bartonella henselae. LP is going to be done today and the complicating factor has been his thrombocytopenia. 2. Thrombocytopenia. 3. Acute renal failure. 4. I am going to recheck COVID-19 PCR from tracheal aspirate again. He is currently intubated, so he is . I discussed with the , prognosis remains guarded. Check daily CBC. Continue with antibiotic. Modify after the LP. MD SETH Cornell/RUDDY /[id number]
[2020-08-25] MEDS ORDERED: LIDOCAINE HCL 1% LOCAL INJ 20 ML VIAL ONE (10:55)
--- NOTE | 2020-08-25 12:44 | Diagnostic Imaging Report ---
Fluoroscopic-guided lumbar puncture. History: Sepsis. Ged Instructor: Dr. Field. Medication: None. Anesthesia: 5 cc of 1% lidocaine without epinephrine. Contrast: None. Fluoro time: 0.04 min. Dose: 1.1 mGy (JAIRO) Specimen: 12 cc of slightly yellow clear CSF. Discussion: After informed consent was obtained, the patient's back was prepped and draped in a sterile fashion. The skin was anesthetized with 1% lidocaine without epinephrine. Using fluoroscopic guidance, a 22 gauge 3.5 inch long spinal needle was advanced into the spinal canal at the level of L4-L5. Clear CSF was visualized and obtained and sent to the laboratory for studies. The patient tolerated the procedure well without evidence of immediate complication. IMPRESSION: Successful fluoroscopic guided LP. Signed by: Andrei Field on 08/25/2020 12:40 PM
--- NOTE | 2020-08-25 13:10 | Progress Note ---
DATE: 08/25/2020 SUBJECTIVE: Francisco Simmons is a 64-year-old male who was referred to me for evaluation of thrombocytopenia as the patient remains intubated. My clinical judgment remains the same as I had dictated in my consultation. The patient still remains leukemoid 23,470. CBC; hemoglobin is still stable at 12.2, platelets are stable at 35,000. Microbiology so far has been reported negative. However, it has to be noted that I think the problem of this patient is aspiration pneumonia as per the history obtained from the by the ER physician. The chest x-ray of 08/25 shows increased bilateral pulmonary opacities consistent with either edema or pneumonia. However, because of the leukocytosis, clinical picture of sepsis. This is consistent with bilateral bronchopneumonia. The patient possibly will go in [facility]. Hematologically, he is stable enough for me not to intervene today. Thank you very much for allowing me to participate in management of this patient. MD MAHOGANY Patterosn/RUDDY /[id number]
[2020-08-25] MEDS ORDERED: CALCIUM CHLORIDE 10% 1.36 MEQ/ML 10ML SYR IV STA (13:42)
[2020-08-25 14:05] LABS: WHITE BLOOD CELL,CSF 10 cells/uL (0-5)
[2020-08-25 14:06] LABS: APPEARANCE,CSF CLEAR (CLEAR); COLOR,CSF XANTHOCHROMIC (COLORLESS); TUBE NUMBER 3
[2020-08-25 14:14] LABS: LYMPHOCYTES,CSF 38 % (40-80); MONOCYTES,CSF 16 %; NEUTROPHILS,CSF 46 % (0-6)
[2020-08-25] MEDS ORDERED: LACTATED RINGER'S 1,000 ML INJ SCH (14:15)
[2020-08-25] MEDS ORDERED: CALCIUM CHLORIDE 13.6 MEQ in SODIUM CHLORIDE 0.9% 100 ML 100 ML IV ONE ×3 (14:30→20:00)
[2020-08-25 15:38] LABS: TOTAL PROTEIN,CSF 101.3 mg/dL (15-40)
--- NOTE | 2020-08-25 16:30 | Progress Note ---
DATE: 08/25/2020 Renal Progress Note SUBJECTIVE: Events about 24 hours have been noted. The patient remains on a ventilator. Intake and output; in the last 24 hours, his intake has been 4.9 L, output 775 mL. PHYSICAL EXAMINATION: VITAL SIGNS: Blood pressure 120/54, respirations 28, and pulse 87. The patient is on Levophed drip. HEENT: No increased JVD. The patient is intubated. He is on a ventilator. CARDIOVASCULAR: Regular rate and rhythm. LUNGS: Decreased breath sounds and coarse breath sounds bilaterally. ABDOMEN: Positive bowel sounds. EXTREMITIES: No edema. SKIN: The patient does have some reticular type of rash on the lower part of the legs and also on the lower part of the abdomen, somewhat erythematous on abdomen probably could be maculopapular. LABORATORY RESULTS: SUMMER is negative. C3 and C4 complements are negative. Anti double stranded DNA antibody is negative. White count 23,000, hemoglobin and hematocrit 12 and 35, and platelets of 35,000. Chemistry; sodium 138, potassium 4, chloride 103, bicarbonate 20, BUN and creatinine 88 and 6.7 respectively, and calcium 7.2. IMPRESSION: 1. Acute kidney injury. 2. Metabolic acidosis. 3. Hypokalemia. 4. Shock. 5. Thrombocytopenia. 6. Sepsis. PLAN: The patient's renal function is worsening and is not getting better. His respiratory status is also worse. The chest x-ray reveals that the infiltrates are worse. The IV fluids have been turned off. Even though he is hypotensive and in shock, I will go ahead and just give maybe one more L of normal saline to take him up since he might be in a state of sepsis. However, after that, I will not give any more IV fluids. He is going to get dialysis today 3 potassium, 2.5 calcium. We are not going to ultrafilter any fluids because he is already septic and hypotensive. We dialyzed him for chemical clearance. The patient's prognosis remains very dismal at this point. His calcium is low. I supplemented his calcium yesterday with two amps of a calcium chloride by 6 hours. I will go ahead and order another two amps of calcium chloride by 6 hours also. Ather MD MARC Lewis/RUDDY /[id number]
--- NOTE | 2020-08-25 16:48 | NUR ---
Nutrition Intervention Note RD Recommendation(s) for Physician: -Continue Vital AF 1.2. Recommend advancing to a goal rate of 70 mL/hr when appropriate (provides 2016 kcal, 126 g protein, and 1363 mL water) -Water/fluid management per MD Plan of Care: RD following, monitoring for tolerance and adequacy, tube feed recommendation Nutrition reason for involvement: Nutrition Risk Trigger, enteral nutrition RD Assessment (08/25/20) Pt is a 64 year old male admitted with severe sepsis. Pt is currently intubated/sedated and is on pressors. Pt received dialysis yesterday due to acute renal failure. Tube feedings were started, but tube feeding was off this morning due to procedure per RN. Unable to obtain nutrition history from pt at this time. Recommendations provided. Will continue to monitor. Principal Problems/Diagnoses: severe sepsis PMH: HTN, afib GI: soft/large/round abdomen, BM not recorded Skin: no pressure ulcers Labs: (08/25) Na 138, K 4.0, BUN 88, Cr 6.73, Glu 119, Ca 7.2, Total Bili 8.0, AST 62 Meds: antibiotics, norepinephrine, heparin, mannitol Ht: 71 in Wt: 199.38 lbs (08/25) 189 lbs (08/24) BMI: 26.4 kg/m2 using wt of 189 lbs IBW: 172 lbs Malnutrition Evaluation (08/25/20) Unable to fully assess at this time. Will re-evaluate at follow-up as appropriate. Energy intake: Unable to assess Weight loss: Unable to assess; there are no previous weights in chart Fat loss: unable to evaluate Muscle loss: unable to evaluate Supporting Evidence: Fluid accumulation: no edema per MD note Functional Status: not assessed Nutrition Prescription (Diet Order): Vital AF 1.2 @ 20 mL/hr tube feeding was off this morning due to procedure Estimated Nutritional Needs: 3046-4663 calories/day (20-25 kcal/kg CBW): using wt of 189 lbs 129- 172 g protein/day (1.5-2 g pro/kg CBW): using wt of 189 lbs Diet Adequacy: Not meeting calorie needs, Not meeting protein needs Tolerance: N/A Diet Education Needs Assessment: Diet education not indicated; pt is intubated Nutrition Care Level: moderate Nutrition Diagnosis: Inadequate oral intake related to respiratory failure/mechanical ventilation as evidenced by need for enteral nutrition. Goal: Patient will meet 75-100% of estimated needs by follow up Progress: N/A Interventions: -Composition, Rate, Route, Recommended Modifications Monitoring/Evaluation: -Total energy intake, Total protein intake, Formula/Solution, Weight change Signed: Vi Lua RD, GUILLERMINA Addendum: 08/27/20 at 1105 by Vi Lua DIET MAHAD to manage TF order per Dr. Benitez
[2020-08-25] MEDS: ACETAMINOPHEN 325 MG/10 ML UDC NG PRN (18:00)
[2020-08-25] MEDS: ACYCLOVIR SODIUM INJ 500 MG in SODIUM CHLORIDE 0.9% 100 ML 100 ML IV SCH (18:24)
[2020-08-25] MEDS ORDERED: ACETAMINOPHEN 325 MG/10 ML UDC ONE (18:57)
[2020-08-25] MEDS ORDERED: CALCIUM CHLORIDE 10% 1.36 MEQ/ML 10ML SYR IV ONE (20:00)
[2020-08-25] MEDS: AZITHROMYCIN 500MG/NS 250 ML 250 ML IV SCH (21:25)
[2020-08-26] VITALS (26 sets, daily range): BP systolic 74–122; BP diastolic 42–63
[2020-08-26] MEDS: CEFTRIAXONE SOD 2 GM/NS 100 ML 100 ML IV SCH ×2 (03:30→14:34)
[2020-08-26] MEDS: AMPICILLIN SOD 2 GM/NS 100ML 100 ML IV SCH ×2 (04:40→16:39)
[2020-08-26] MEDS: MIDAZOLAM HCL 5MG/ML 10ML VIAL 100 ML IV PRN (04:45)
[2020-08-26 06:01] LABS: BASOPHILS # (AUTO) 0.1 (0.0-0.1); BASOPHILS % 0.4 % (0.0-1.0); EOSINOPHILS # (AUTO) 0.1 (0.0-0.4); EOSINOPHILS % 0.8 % (0.0-6.0); HEMATOCRIT 30.4 % (38.2-49.6); LYMPHOCYTES # (AUTO) 2.1 (1.0-3.2); LYMPHOCYTES % 12.1 % (18.0-39.1); MEAN CORPUSCULAR HEMOGLOBIN 29.5 pg (28-32); MEAN CORPUSCULAR HGB CONC 34.5 g/dL (31-35); MEAN CORPUSCULAR VOLUME 85.4 fL (81-99); MONOCYTES # (AUTO) 1.2 (0.2-0.8); MONOCYTES % 7.1 % (4.4-11.3); NEUTROPHILS # (AUTO) 13.5 (2.1-6.9); NEUTROPHILS % 77.6 % (38.7-80.0); PLATELET COUNT 52 x10e3/uL (140-360); RED BLOOD COUNT 3.56 x10e6/uL (4.3-5.7); RED CELL DISTRIBUTION WIDTH 14.8 % (11.7-14.4)
[2020-08-26 06:08] LABS: HEMOGLOBIN 10.5 g/dL (14.0-18.0)
[2020-08-26 06:11] LABS: ALBUMIN 1.8 g/dL (3.5-5.0); ALBUMIN/GLOBULIN RATIO 0.8 (0.8-2.0); ANION GAP 17.5 mmol/L (8-16); CALCIUM 7.7 mg/dL (8.4-10.2); CREATININE, SERUM 5.17 mg/dL (0.72-1.25); POTASSIUM 4.5 mmol/L (3.5-5.1)
[2020-08-26 07:47] LABS: ANISOCYTOSIS SLIGHT; EOSINOPHILS % (MANUAL) 1 % (0-7); LYMPHOCYTES % (MANUAL) 6 % (19-48); MONOCYTES % (MANUAL) 14 % (3.4-9.0); NEUTROPHILS % (MANUAL) 78 % (40-74); PLATELET ESTIMATE MODERATELY DECREASED; PLATELET MORPHOLOGY COMMENT NORMAL; RBC MORPHOLOGY COMMENT NORMAL
--- NOTE | 2020-08-26 08:13 | Diagnostic Imaging Report ---
TECHNIQUE: Frontal view of the chest. INDICATION: ^resp failure ^[id number] ^0600 COMPARISON: Prior day. DISCUSSION: Limited evaluation due to portable technique. Lines and hardware: Stable endotracheal tube, subdiaphragmatic enteric tube and right internal jugular nontunneled central venous catheter. Multiple overlying EKG leads are noted. Heart and mediastinum: Stable. Lungs and pleura: Interval worsening of bilateral interstitial airspace disease, most prominent at the right lung base. Negative for large effusion or pneumothorax. Soft tissues and bones: No acute abnormality. IMPRESSION: 1. Interval worsening of bilateral interstitial airspace opacities. 2. Stable support structures. Signed by: Felix Simmons MD on 08/26/2020 8:09 AM
--- NOTE | 2020-08-26 08:48 | Progress Note ---
DATE: SUBJECTIVE: The patient was weaned off Levophed yesterday night, but had to be restarted on low-dose Levophed this morning. He is remain sedated on a Versed drip. He is currently on a PRVC mode of ventilation with a tidal volume of 470 and rate of 22. His PEEP is set at 7 and his FiO2 is set at 45%. PHYSICAL EXAMINATION: VITAL SIGNS: The patient is afebrile. The blood pressure 111/47 and the pulse is 93. The patient is currently breathing with the ventilator at 22. The settings are as noted above. Saturation is 100%. HEENT: Shows no facial swelling or erythema. There is an oral endotracheal tube. There is a right IJ dialysis catheter. CARDIAC: Reveals regular rate and rhythm. Normal S1, S2. LUNGS: Auscultation of lungs shows decreased breath sounds at the bases. There is no wheezing. ABDOMEN: Soft and nontender. There is no rebound or guarding. EXTREMITIES: Show an A-line in place. He has no leg edema or calf tenderness. There is no cyanosis or clubbing. LABORATORY DATA: White blood cell count is 17.39, hemoglobin is 10.5, and the platelet count is 52. The ZOM-im-qtvnrjwzoi ratio is 62 to 5.17. The other electrolytes within normal limits, and the albumin is 1.8. IMPRESSION: 1. Aspiration pneumonia with septic shock, present on admission. 2. Gastroenteritis. 3. Ischemic hepatitis. 4. Acute renal failure. 5. Thrombocytopenia. 6. Seizure. 7. Metabolic encephalopathy. PLAN: 1. Continue current antibiotics. 2. Await culture results. 3. Hold sedation and work towards spontaneous breathing trial. 4. Wean off Levophed. 5. Continue to use dialysis as needed and monitor renal function. 6. Continue enteral feedings. 7. DVT prophylaxis. Greater than 35 minutes in direct critical care time. Edmond Benitez MD [facility]/MODL /[id number]
[2020-08-26] MEDS: LEVETIRACETAM 500MG/5ML VIAL 500 MG in SODIUM CHLORIDE 0.9% 100 ML 100 ML IV SCH ×2 (08:51→21:50)
[2020-08-26] MEDS: BENZTROPINE MESYLATE 1 MG TAB PO SCH ×2 (08:51→17:42)
[2020-08-26] MEDS ORDERED: CALCIUM CHLORIDE 10% 1.36 MEQ/ML 10ML SYR IV STA (09:44)
[2020-08-26] MEDS: HEPARIN SOD (PORCINE) 5,000 UNIT/ML VIAL SC SCH ×2 (09:46→21:50)
[2020-08-26] MEDS ORDERED: CALCIUM CHLORIDE 10% SYRINGE 13.6 MEQ in SODIUM CHLORIDE 0.9% 100 ML IV ONE (10:30)
[2020-08-26] MEDS: NOREPINEPHRINE 8 MG/D5W 250 ML 250 ML IV SCH (11:00)
--- NOTE | 2020-08-26 12:25 | Progress Note ---
DATE: 08/26/2020 Renal Progress Note SUBJECTIVE: Events over the past 24 hours have been noted. The patient remains intubated. He is on a ventilator, but sedation has been turned. Right now, he is off the Levophed. PHYSICAL EXAMINATION: VITAL SIGNS: Blood pressure 118/67 and pulse 98. GENERAL: The patient remains intubated on a ventilator and sedation has been turned off to see we can wean him. CARDIOVASCULAR: Regular rate and rhythm. LUNGS: Decreased breath sounds at bases bilaterally. ABDOMEN: Positive bowel sounds. EXTREMITIES: No edema. SKIN: The reticular-type rash he has on his legs, it seems to be somewhat less then it was on admission. LABORATORY RESULTS: White count 17.3, hemoglobin and hematocrit 10 and 30, and platelet count is 52,000. Sodium 140, potassium 4.5, chloride 104, bicarbonate 23, BUN and creatinine 62 and 5.1 respectively. IMPRESSION/PLAN: 1. Acute kidney injury. 2. Metabolic acidosis. 3. Shock. 4. Thrombocytopenia. 5. Sepsis. The patient's renal function is about the same. He still is in renal failure. He is still in respiratory failure also. I gave 1 L of lactated Ringer yesterday. I do not want to give any more than that because his chest x-ray shows bilateral infiltrates and he will probably become more fluid overload if I give him more fluids. I am going to go ahead and have him dialyzed today. We probably will try to take off maybe 500 mL to 1 L with dialysis. His calcium is low. I will give him an amp of calcium chloride and I will repeat the dose later on this evening. I am waiting for serologies to come back, so far everything is negative. His platelet counts are better today. Ather MD MARC Lewis/RUDDY /[id number]
[2020-08-26] MEDS: METOPROLOL TARTRATE 25 MG TAB PO SCH ×2 (12:30→17:42)
--- NOTE | 2020-08-26 13:30 | Progress Note ---
DATE: 08/26/2020 SUBJECTIVE: Francisco Simmons is a 64-year-old male who was referred to me for evaluation of thrombocytopenia. The patient's platelets have gone up today to 52,000. Hemoglobin is stable at 10.5. The white count has dropped down to 17,390. Chemistry; his BUN and creatinine of 62 and 5.17. Total protein is extremely low at 1.8. The patient's imaging still shows interval worsening of bilateral interstitial airspace opacity, still intubated. I have spoken to Dr. Hayden Soni that this is bilateral bronchopneumonia, possibly because of the aspiration, which was documented by the ER physician as per the history from the . Hematologically, he is stable. I do not have to intervene today. Thank you very much for allowing me to participate in the management of this patient. I will confine myself to Hematology. MD MAHOGANY Patterson/BECKL /[id number] cc: Hayden Soni MD
--- NOTE | 2020-08-26 14:49 | NUR ---
intubated, on pressors, sedated vs 105/55 89 98.5 corneal edema no nuchal rigidity rrr vented/ronchus and mechanical respratoy support pupils sluggish but reactive abd soft ble have an odd rash a/p LP completed, no clear evidence of meningitis, some incrase in protein and neutrophils without glucose change (perhaps mildly low) WBC in CSF 10. so some inflamator process, although mild , is present CT CAP - incidental findings X ray L spine- significant degenerative disease on aed continue broad antibiotic coverage treating for sepsis and infectious encpehalopathy will continue to monitor eeg tomorrow
--- NOTE | 2020-08-26 16:07 | NUR ---
INFECTIOUS DISEASE PROGRESS NOTE DR. LORA SO REVIEW OF SYSTEMS: unable to obtain due to intubated/sedated PHYSICAL EXAMINATION: GENERAL: Intubated, sedated VITALS: critically ill in ICU, per chart HEENT: Normocephalic. atraumatic NECK: Supple. no JVD HEART: S1-S2. no s3, s4 ABDOMEN: Soft, bowel sounds present. soft EXTREMITIES: No edema. LABS: reviewed RADIOLOGY: reviewed IMPRESSION: Aspiration PNA Septic Shock present on admission Meningoencephalitis unclear source Severe thrombocytopenia secondary to sepsis PETROS Gastro enteritis PLAN: Rocephin, Ampicillin, Acyclovir, Azithromycin Will continue the same get [place] IGG IGM await final results Guarded prognosis Aline Christy MSN, MEDICAL ADVISOR, AGACNP-BC Dictated for Lora So M.D
[2020-08-26] MEDS: ACYCLOVIR SODIUM INJ 500 MG in SODIUM CHLORIDE 0.9% 100 ML 100 ML IV SCH (17:42)
--- NOTE | 2020-08-26 18:59 | NUR ---
Bedside report received from Leslye DELVALLE. Refer to communications systems engineer for further information.
[2020-08-26] MEDS ORDERED: CALCIUM CHLORIDE 10% 1.36 MEQ/ML 10ML SYR IV ONE (20:00)
[2020-08-26] MEDS ORDERED: CALCIUM CHLORIDE 13.6 MEQ in SODIUM CHLORIDE 0.9% 100 ML IV ONE (20:00)
[2020-08-26] MEDS: AZITHROMYCIN 500MG/NS 250 ML 250 ML IV SCH (20:45)
[2020-08-26] MEDS: DILTIAZEM HCL 125 ML IV SCH (21:00)
[2020-08-26] MEDS: ACETAMINOPHEN 325 MG/10 ML UDC NG PRN (22:45)
[2020-08-27] VITALS (30 sets, daily range): BP systolic 84–127; BP diastolic 46–65
[2020-08-27] MEDS: CEFTRIAXONE SOD 2 GM/NS 100 ML 100 ML IV SCH ×2 (03:10→14:53)
--- NOTE | 2020-08-27 03:28 | Progress Note ---
DATE: 08/26/2020 RENAL PROGRESS NOTE.: SUBJECTIVE: DICTATION ENDS HERE. Ather MD MARC Lewis/RUDDY /[id number]
[2020-08-27] MEDS: AMPICILLIN SOD 2 GM/NS 100ML 100 ML IV SCH ×2 (04:32→16:00)
[2020-08-27] MEDS: DILTIAZEM HCL 125 ML IV SCH (04:45)
[2020-08-27] MEDS ORDERED: SODIUM CHLORIDE 0.9% 100 ML ONE (04:48)
[2020-08-27] MEDS ORDERED: SODIUM CHLORIDE 0.9% 500ML 0 ML ONE (04:48)
[2020-08-27 05:10] LABS: BASOPHILS # (AUTO) 0.1 (0.0-0.1); BASOPHILS % 0.5 % (0.0-1.0); EOSINOPHILS # (AUTO) 0.1 (0.0-0.4); EOSINOPHILS % 0.8 % (0.0-6.0); HEMATOCRIT 30.3 % (38.2-49.6); HEMOGLOBIN 10.1 g/dL (14.0-18.0); LYMPHOCYTES # (AUTO) 2.8 (1.0-3.2); LYMPHOCYTES % 18.1 % (18.0-39.1); MEAN CORPUSCULAR HEMOGLOBIN 29.2 pg (28-32); MEAN CORPUSCULAR HGB CONC 33.3 g/dL (31-35); MEAN CORPUSCULAR VOLUME 87.6 fL (81-99); MONOCYTES # (AUTO) 1.3 (0.2-0.8); NEUTROPHILS # (AUTO) 11.1 (2.1-6.9); NEUTROPHILS % 70.8 % (38.7-80.0); PLATELET COUNT 90 x10e3/uL (140-360); RED BLOOD COUNT 3.46 x10e6/uL (4.3-5.7); RED CELL DISTRIBUTION WIDTH 15.4 % (11.7-14.4)
[2020-08-27] MEDS: METOPROLOL TARTRATE 25 MG TAB PO SCH ×4 (05:25→17:23)
[2020-08-27 05:28] LABS: ALBUMIN 1.6 g/dL (3.5-5.0); ALBUMIN/GLOBULIN RATIO 0.5 (0.8-2.0); ANION GAP 15.7 mmol/L (8-16); CALCIUM 7.9 mg/dL (8.4-10.2); CREATININE, SERUM 4.95 mg/dL (0.72-1.25); POTASSIUM 4.7 mmol/L (3.5-5.1)
--- NOTE | 2020-08-27 06:56 | Diagnostic Imaging Report ---
EXAMINATION: CHEST SINGLE (PORTABLE) INDICATION: ^Resp failure ^[id number] ^0516 COMPARISON: 08/26/2020 FINDINGS: AP view TUBES and LINES: Stable endotracheal tube, right IJ central catheter, and partially seen enteric tube. LUNGS: Lungs are well inflated. Again seen bilateral airspace opacities. PLEURA: No significant pleural effusion or pneumothorax. HEART AND MEDIASTINUM: The cardiomediastinal silhouette is unremarkable. BONES AND SOFT TISSUES: No acute osseous lesion. Soft tissues are unremarkable. UPPER ABDOMEN: No free air under the diaphragm. IMPRESSION: No significant interval change from prior exam. Signed by: Dr. Fermin Swift MD on 08/27/2020 6:52 AM
--- NOTE | 2020-08-27 06:58 | Diagnostic Imaging Report ---
EXAM: Abdomen 2 radiographs INDICATION: ^Recent ABD distention ^[id number] ^0519 ^Y COMPARISON: None FINDINGS: Temperature probe overlying pelvis. Partially seen enteric tube with tip projecting over gastric body. Nonobstructive bowel gas pattern. No signs of pneumoperitoneum. No acute osseous abnormality. Degenerative changes of lower lumbar spine. IMPRESSION: Nonobstructive bowel gas pattern. Signed by: Dr. Fermin Swift MD on 08/27/2020 6:55 AM
[2020-08-27] MEDS ORDERED: BISACODYL 10 MG SUPP PR ONE (07:00)
[2020-08-27 07:58] LABS: EOSINOPHILS % (MANUAL) 1 % (0-7); LYMPHOCYTES % (MANUAL) 6 % (19-48); MONOCYTES % (MANUAL) 5 % (3.4-9.0); NEUTROPHILS % (MANUAL) 88 % (40-74)
[2020-08-27 07:59] LABS: ANISOCYTOSIS SLIGHT; PLATELET ESTIMATE SLIGHTLY DECREASED; PLATELET MORPHOLOGY COMMENT NORMAL; RBC MORPHOLOGY COMMENT NORMAL
--- NOTE | 2020-08-27 08:02 | NUR ---
nonresponsive 86 120/64 non-arousabel eomi to dolls corneal edema pupils are briskly reactive to light neck is supple rrr mechanical vent support not follwoing any command no movement to nox stim ischemic toes a/p septic encephalopathay on antitiotics LP does not show active meningitis, ID following witnesses tonic sz- on aed- get EEG today, no repeat ofsiezre since initail witnessed event
[2020-08-27] MEDS ORDERED: FLUCONAZOLE 200 MG/100 ML 0 ML IV ONE (08:31)
[2020-08-27] MEDS: BENZTROPINE MESYLATE 1 MG TAB PO SCH ×2 (08:35→17:22)
[2020-08-27] MEDS: LEVETIRACETAM 500MG/5ML VIAL 500 MG in SODIUM CHLORIDE 0.9% 100 ML 100 ML IV SCH ×2 (08:35→21:57)
[2020-08-27 08:54] LABS: ABG HCO3 25 mmol/L (22-26); ABG PCO2 38 mmHg (35-45); ABG PH 7.43 (7.35-7.45); ABG PO2 95 mmHg (80-105); ABG TCO2 26
[2020-08-27] MEDS: HEPARIN SOD (PORCINE) 5,000 UNIT/ML VIAL SC SCH ×2 (09:26→21:58)
[2020-08-27] MEDS ORDERED: FLUCONAZOLE 200 MG/100 ML 100 ML IV ONE (09:35)
--- NOTE | 2020-08-27 09:43 | Progress Note ---
DATE: Pulmonary Critical Care Progress Note SUBJECTIVE: The patient is still not responding well after Versed being held for 24 hours. He does have cranial nerve function. He does not follow commands well. He remains on a PRVC mode of ventilation. He is weaned off Levophed. He is off Cardizem. He received dialysis yesterday as well. PHYSICAL EXAMINATION: VITAL SIGNS: Blood pressure is 112/62, heart rate is 87. There is a sinus rhythm. His respiratory rate is 20. HEENT: Shows no facial swelling or erythema. LYMPHATIC: Shows no submandibular, cervical, or supraclavicular adenopathy. CARDIAC: Reveals regular rate and rhythm with normal S1, S2. LUNGS: Auscultation of lungs shows decreased breath sounds at the bases. There is no wheezing. ABDOMEN: Soft and nontender. There is no rebound or guarding. EXTREMITIES: Shows 1+ leg edema. There is no joint swelling. The macular rash in the stomach is improved. LABORATORY DATA: HWQ-qr-nlpxycqhxa ratio is 57 to 4.95. Other electrolytes are within normal limits. The total bilirubin is decreased to 6.2 and the AST is 105. ALT is 78 and the alkaline phosphatase is 401. The calcium is 7.9. The albumin is 1.6. The platelet count is 90 and the white blood cell count is 15.7. Hemoglobin is 10.1. RADIOGRAPHIC DATA: Chest x-ray shows no significant interval change. IMPRESSION: 1. Aspiration pneumonia, septic shock, present on admission. 2. Severe gastroenteritis with dehydration and hypovolemia, present on admission. 3. Ischemic hepatitis secondary to shock. 4. Acute renal failure secondary to acute tubular necrosis and shock. 5. Thrombocytopenia. 6. Seizures x1. 7. Metabolic encephalopathy. 8. Atrial fibrillation. PLAN: 1. The patient to have MRI and EEG today. 2. Continue current antibiotics. 3. Repeat ABG. 4. Continue enteral feedings. 5. Dialysis as needed. 6. Case discussed with Neurology, Infectious Disease, nursing, and Respiratory. Greater than 35 minutes in direct critical care time. Edmond Benitez MD [facility]/MODL /[id number]
--- NOTE | 2020-08-27 12:44 | Progress Note ---
DATE: 08/27/2020 SUBJECTIVE: Mr. Simmons is a 64-year-old male, referred to me for evaluation of thrombocytopenia. The patient's platelets have gone up progressively 52,000 yesterday, 90,000 today. The patient still has a slightly high white count 15,720, hemoglobin is 10.1. This is anemia of phlebotomy as he has multiple tests done. BUN and creatinine remain at 57 and 4.95. Liver functions remain about the same. The patient's imaging does not show any significant change. I will confine myself to Hematology only. Hematologically, there is no intervention today. Thank you very much for allowing me to participate in management of this patient. Maira Ya MD MA[facility]/MODL /[id number] cc: Hayden Soni MD
--- NOTE | 2020-08-27 13:29 | Diagnostic Imaging Report ---
EXAMINATION: MRI of the brain without contrast. HISTORY: 64-year-old male with alteration of consciousness, decreased responsiveness, severe sepsis, hypertension. COMPARISON: Head CT 08/23/2020 TECHNIQUE: Sagittal T2; axial DWI, T2, FLAIR, T1-IR, T2 gradient echo; coronal FLAIR. FINDINGS: Parenchyma: 1. No abnormal signal intensity 2. No mass, hemorrhage, acute or chronic infarcts. Skull: Unremarkable. Vessels: Expected flow voids present in the major arteries and dural sinuses. Extra-axial spaces: No abnormal signal intensity or mass effect. Brain volume: Within normal limits for age. Ventricles: Mildly enlarged without evidence of transependymal CSF spread/hydrocephalus. Foramen magnum: Unremarkable. Sella: Unremarkable. Paranasal / mastoid sinuses: Minimal mucosal thickening of the maxillary and ethmoid sinuses. Incidental findings: Retained secretions in the nasal/oropharynx likely from orotracheal/endotracheal tubes. IMPRESSION: No acute intracranial abnormalities, particularly no hemorrhage, infarct, midline shift or herniation. Signed by: Dr. Meagan Jordan M.D. on 08/27/2020 1:26 PM
[2020-08-27] MEDS ORDERED: LACTATED RINGER'S 1,000 ML INJ ONE (15:00)
--- NOTE | 2020-08-27 15:19 | NUR ---
INFECTIOUS DISEASE PROGRESS NOTE DR. LORA SO REVIEW OF SYSTEMS: unable to obtain due to intubated/sedated PHYSICAL EXAMINATION: GENERAL: Intubated, sedated VITALS: critically ill in ICU, per chart HEENT: Normocephalic. atraumatic NECK: Supple. no JVD HEART: S1-S2. no s3, s4 ABDOMEN: Soft, bowel sounds present. soft EXTREMITIES: No edema. LABS: reviewed RADIOLOGY: reviewed IMPRESSION: Aspiration PNA Septic Shock present on admission Meningoencephalitis unclear source Severe thrombocytopenia secondary to sepsis PETROS Gastro enteritis PLAN: Rocephin, Ampicillin, Acyclovir, Azithromycin -Will continue the same some clinical improvement MRI neg, EEG pending Guarded prognosis Aline Christy MSN, TURN DOWN ATTENDANT, AGACNP-BC Dictated for Lora So M.D
[2020-08-27] MEDS: ACETAMINOPHEN 325 MG SUPP PR PRN (15:27)
[2020-08-27] MEDS: SODIUM CHLORIDE 0.9% IV SCH (16:00)
[2020-08-27] MEDS: ACYCLOVIR SODIUM IV SCH (16:00)
--- NOTE | 2020-08-27 17:30 | Progress Note ---
DATE: Renal Progress Note SUBJECTIVE: Events over the past 24 hours have been noted. The patient remains unresponsive. He is undergoing an EEG at this time. MRI of the brain was done earlier. Intake and output does not look like it has been accurately recorded, he has 310 in and 15 out. PHYSICAL EXAMINATION: VITAL SIGNS: Blood pressure 98/51, pulse 97, temperature 100.7. GENERAL: The patient remains intubated. He is on a ventilator. Sedation is turned off. The patient is unresponsive. CARDIOVASCULAR: Regular rate and rhythm. LUNGS: Decreased breath sounds at bases bilaterally. ABDOMEN: Positive bowel sounds. EXTREMITIES: No edema. SKIN: Diverticular type rash on his legs, it has decreased and seems to have almost gone away, however, some of his toes at the tips are becoming purple/cyanotic. LABORATORY RESULTS: Sodium 139, potassium 4.7, chloride 104, bicarbonate 24, BUN and creatinine 57 and 4.9 respectively, calcium is 7.9, albumin is 1.6. White count is 15,000. Hemoglobin and hematocrit 10 and 31, platelet count 90,000. IMPRESSION: 1. Acute kidney injury. 2. Shock. 3. Thrombocytopenia. 4. Rule out sepsis. 5. Oligoanuria. PLAN: The patient remains in acute kidney injury. He is oligoanuric. It does not look like he is making any urine. He was dialyzed yesterday. There will be no need for dialysis today, yesterday was his 3rd dialysis session in a row, so far all of his, the SUMMER, anti double stranded DNA, complements are negative. His anti-glomerular basement membrane antibodies negative. Also hepatitis B is negative. Hepatitis C will be checked. His platelet counts are much improved by next week. If the patient remains dependent on dialysis and the renal function does not improve he may need a kidney biopsy at some point. Up to now he has been thrombocytopenic and the risk of kidney biopsy has far outweighed any benefit, but now his platelets are starting to come up. I will try to collect a 24-hour urine collection for protein and creatinine clearance, however, he is oligoaneuric. I will probably go ahead and give him one dose of Lasix today to try to convert the oliguria to nonoliguria. He does have some opacities on the chest x-ray. He is on FiO2 of 40%. I will probably go ahead and give him a trial of IV fluids just for 1 L to see if that will improve his renal function. Also I will follow that with some Lasix to try to convert him to nonoliguria. Ather MD MARC Lewis/RUDDY /[id number]
--- NOTE | 2020-08-27 20:00 | NUR ---
Bedside report received. Patient in bed with HOB elevated. PUPILS 1 mm and Sluggish. Patient noted on vent Fio2 45% PEEP7 RR 18 [id number]. RIJ noted with LR running at 75cc/hr Vital at 20cc. Wilkinson Noted. Safety Maintainer. Will continue to monitor.
[2020-08-27] MEDS: AZITHROMYCIN 500MG/NS 250 ML 250 ML IV SCH (20:58)
[2020-08-27] MEDS ORDERED: FUROSEMIDE INJ 10 MG/ML 4 ML VIAL IV ONE (21:00)
[2020-08-28] VITALS (25 sets, daily range): BP systolic 89–131; BP diastolic 47–66
[2020-08-28] MEDS: METOPROLOL TARTRATE 25 MG TAB PO SCH ×4 (00:29→15:15)
[2020-08-28] MEDS: CEFTRIAXONE SOD 2 GM/NS 100 ML 100 ML IV SCH ×2 (03:00→15:01)
[2020-08-28] MEDS: AMPICILLIN SOD 2 GM/NS 100ML 100 ML IV SCH ×2 (04:18→16:13)
[2020-08-28 04:39] LABS: BASOPHILS # (AUTO) 0.1 (0.0-0.1); BASOPHILS % 0.5 % (0.0-1.0); EOSINOPHILS # (AUTO) 0.1 (0.0-0.4); EOSINOPHILS % 0.8 % (0.0-6.0); LYMPHOCYTES # (AUTO) 3.4 (1.0-3.2); LYMPHOCYTES % 22.1 % (18.0-39.1); MEAN CORPUSCULAR HEMOGLOBIN 29.1 pg (28-32); MEAN CORPUSCULAR HGB CONC 33.3 g/dL (31-35); MEAN CORPUSCULAR VOLUME 87.2 fL (81-99); MONOCYTES # (AUTO) 1.2 (0.2-0.8); MONOCYTES % 7.9 % (4.4-11.3); NEUTROPHILS # (AUTO) 10.3 (2.1-6.9); PLATELET COUNT 136 x10e3/uL (140-360); RED BLOOD COUNT 3.44 x10e6/uL (4.3-5.7); RED CELL DISTRIBUTION WIDTH 15.5 % (11.7-14.4)
[2020-08-28 04:56] LABS: ALBUMIN 1.7 g/dL (3.5-5.0); ALBUMIN/GLOBULIN RATIO 0.5 (0.8-2.0); ANION GAP 17.3 mmol/L (8-16); CALCIUM 7.7 mg/dL (8.4-10.2); CREATININE, SERUM 6.65 mg/dL (0.72-1.25); POTASSIUM 5.3 mmol/L (3.5-5.1)
[2020-08-28 05:04] LABS: BILIRUBIN,DIRECT 2.8 mg/dL (0.0-0.5)
[2020-08-28 05:18] LABS: FERRITIN 1269.52 ng/mL (21.81-274.66)
--- NOTE | 2020-08-28 06:11 | Diagnostic Imaging Report ---
EXAMINATION: CHEST SINGLE (PORTABLE) INDICATION: ^resp failure COMPARISON: 08/27/2020 FINDINGS: AP view TUBES and LINES: Stable endotracheal tube, right IJ central line, and partially visualized enteric tube. LUNGS: Lungs are well inflated. Not significantly changed diffuse bilateral airspace opacities. PLEURA: No pneumothorax. Possible small bilateral pleural effusions. HEART AND MEDIASTINUM: The cardiomediastinal silhouette is unremarkable. BONES AND SOFT TISSUES: No acute osseous lesion. Soft tissues are unremarkable. UPPER ABDOMEN: No free air under the diaphragm. IMPRESSION: No significant interval change from prior exam. Signed by: Dr. Fermin Swift MD on 08/28/2020 6:08 AM
[2020-08-28] MEDS: BENZTROPINE MESYLATE 1 MG TAB PO SCH ×2 (08:20→16:14)
[2020-08-28] MEDS: HEPARIN SOD (PORCINE) 5,000 UNIT/ML VIAL SC SCH ×2 (08:21→21:00)
[2020-08-28] MEDS: ACETAMINOPHEN 325 MG/10 ML UDC NG PRN ×2 (08:21→15:36)
[2020-08-28] MEDS ORDERED: SODIUM CHLORIDE 0.9% 1000ML 2,000 ML ONE (08:27)
[2020-08-28] MEDS ORDERED: ALBUMIN 25% 12.5GM 50ML 100 ML IV ONE (08:44)
[2020-08-28] MEDS ORDERED: HEPARIN SOD (PORCINE) 1000 UNIT/ML SDV ONE (08:45)
--- NOTE | 2020-08-28 09:52 | Progress Note ---
DATE: SUBJECTIVE: The patient is still on mechanical ventilation. He is on a PRVC mode of ventilation. He is saturating 100% on 35% and 7 of PEEP. The patient also is off Levophed. He is off Cardizem and has a normal sinus rhythm. The patient is receiving dialysis. He is still not responding well and is not interacting. PHYSICAL EXAMINATION: VITAL SIGNS: Blood pressure is 197/60, saturation is 100%. He is currently on a PRVC mode of ventilation set at a rate of 18 with a tidal volume of 470. His PEEP is set at 7. HEENT: Shows no facial swelling or erythema. LYMPHATIC: Shows no submandibular, cervical, or supraclavicular adenopathy. CARDIAC: Reveals a regular rate and rhythm. Normal S1, S2. LUNGS: Auscultation of lungs reveals crackles at the bases. There is no wheezing. ABDOMEN: Soft and nontender. There is no rebound or guarding. EXTREMITIES: Shows no leg edema or calf tenderness. There is no cyanosis clubbing. SKIN: Shows no rashes. NEUROLOGICAL: Shows the patient to be sedated. Patient not to be interacting well. He is off sedation. LABORATORY DATA: White blood cell count is 15.4, hemoglobin is 10 and the platelet count is 136. The BUN to creatinine ratio is 85 to 6.65 and the other electrolytes are within normal limits. The AST is 176. The ALT is 131. The total bilirubin is 3.2 and the alkaline phosphatase is 629. Albumin is 1.7. RADIOGRAPHIC DATA: Chest x-ray shows diffuse bilateral airspace opacities. IMPRESSION: 1. Acute renal failure. 2. Aspiration pneumonia with septic shock present on admission. 3. Severe gastroenteritis, dehydration, hypovolemia, present on admission. 4. Ischemic hepatitis secondary to septic shock. 5. Thrombocytopenia. 6. Metabolic encephalopathy. 7. Atrial fibrillation. 8. Seizure disorder. PLAN: 1. Complete dialysis. 2. Continue to monitor neurological status. 3. Continue current ventilator settings. Once the patient is awake and interacting, we can proceed with a spontaneous breathing trial and possible extubation. 4. Continue to maintain patient off Cardizem. 5. Increase enteral feedings to 30 mL an hour. 6. Case discussed with nursing staff, dialysis, Infectious Disease, and . Greater than 35 minutes in direct critical care time. MD ARVIND Cisneros/RUDDY /[id number]
--- NOTE | 2020-08-28 09:57 | Progress Note ---
DATE: 08/28/2020 SUBJECTIVE: Francisco Simmons is a 64-year-old male, referred to me for thrombocytopenia. Hematologically, the patient is very stable with a hemoglobin of 10, however, this is because of anemia, phlebotomy also because of chronic renal failure. White count is decent at 15,420, platelets have come up to 136,000. Imaging still shows the patient intubated. No significant change of bilateral bronchopneumonia. I will confine myself to Hematology only. Hematologically, the patient is very stable. Thank you very much for allowing me to participate in management of this patient. Maira Ya MD MAQ/MODL /[id number] cc: Hayden Soni MD
--- NOTE | 2020-08-28 10:43 | NUR ---
nonresponsive 101.0 90 97/50 non-arousabel eomi to dolls corneal edema pupils are briskly reactive to light neck is supple rrr mechanical vent support not follwoing any command no movement to nox stim ischemic toes a/p septic encephalopathay on antitiotics LP does not show active meningitis, ID following witnesses tonic sz- on aed, continue aed therapy
--- NOTE | 2020-08-28 11:03 | NUR ---
eeg - 30 min study [id number] 10/20 international electrode placement system EEG read in bipolar montage EEG data generalized and diffuse delta waves, 4hz- rythmic >20mV intermittent attenuation periods of lower amplitude alpha waves 9hz EEG interpretation abnormal III generalized diffuse delta activity with short periods of attenuation- EEG suggestive of severe diffuse encephalpathy without evidence of epileptogenicity
--- NOTE | 2020-08-28 12:32 | NUR ---
PATIENT TOLERATED HD, VITAL SIGNS STABLE THROUGHOUT. 3L FLUID REMOVED
[2020-08-28] MEDS: LEVETIRACETAM 500MG/5ML VIAL 500 MG in SODIUM CHLORIDE 0.9% 100 ML 100 ML IV SCH ×2 (13:25→21:00)
--- NOTE | 2020-08-28 13:58 | Diagnostic Imaging Report ---
EXAM: Right upper quadrant abdominal ultrasound INDICATION: Right upper quadrant pain COMPARISON: None. TECHNIQUE: Transverse and longitudinal images of the right upper quadrant abdomen were obtained FINDINGS: Liver: Size: 18.1 cm in the right midclavicular line, normal Appearance: Normal echogenicity, smooth contour Mass: No focal masses Gallbladder: No distention, pericholecystic fluid, wall thickening, stone, or reported sonographic Flores's sign. Gallbladder wall measures 0.2 cm. Bile Ducts: Intrahepatic Ducts: No dilatation Extrahepatic Ducts: Common bile duct measures 0.3 cm, no dilatation Pancreas: Limited evaluation. Kidney: The right kidney measures 12 cm without evidence of hydronephrosis or stone. Exophytic simple appearing cyst in the midpole, measuring up to 1 cm. Vessels: Aorta: Visualized portions are normal Inferior Vena Cava: Visualized portions are normal Main Portal Vein: 1.1 cm, normal size with hepatopetal flow. Free Fluid: No evidence of ascites. IMPRESSION: Hepatomegaly. No evidence of cholelithiasis or cholecystitis. Signed by: Dr. Adenike Ulloa MD on 08/28/2020 1:54 PM
[2020-08-28] MEDS: ACYCLOVIR SODIUM IV SCH (17:30)
[2020-08-28] MEDS: SODIUM CHLORIDE 0.9% IV SCH (17:30)
--- NOTE | 2020-08-28 19:50 | Progress Note ---
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 The patient was seen and examined. Chart reviewed. Discussed with all medical team. The patient who has had an EEG showed diffuse delta waves. The patient remains none responsive on the vent, not following commands, but his numbers are improving. His white count is improving. His platelet is improving. The patient is seen and examined. Chart reviewed, all notes reviewed. PHYSICAL EXAMINATION: GENERAL: He is noncommunicative, intubated. He is running fever. VITAL SIGNS: Temperature 101.0, heart rate 95, respiration of 20, blood pressure 103/54. LABORATORY DATA: All his cultures remain negative. His white count is slowly improving, it is down to 15.42, hemoglobin of 10, hematocrit of 30. His platelets also improving to 136. His SUMMER screen was negative. CANCA and pANCA is negative. His RPR is negative. Bartonella was negative. CMV still pending. Whites now still pending. His HIV was negative. His spinal fluid HSV cultures are being pending, but HSV PCR is not sent. Unfortunately, even though I ordered it that way. The patient remains on Rocephin, ampicillin, azithromycin, acyclovir. His imaging showing no significant change from before. PCR from the lungs came back negative for COVID-19. Abdominal ultrasound shows no ascites. There is hepatomegaly. IMPRESSION: Sepsis on admission, presumptive encephalitis, probably aspiration pneumonia. Blood cultures are negative. Acute renal failure, probably underlying chronic kidney disease, hepatosplenomegaly, thrombocytopenia due to sepsis, improving. Elevated bilirubin and elevated liver enzyme, probably due to sepsis and probably underlying liver disease also we will recheck. Currently on ampicillin, azithromycin, acyclovir and Rocephin. We will reassess in the morning. Continue supportive care. MD SETH Cornell/MODL /[id number]
[2020-08-28] MEDS: AZITHROMYCIN 500MG/NS 250 ML 250 ML IV SCH (21:00)
--- NOTE | 2020-08-28 22:37 | NUR ---
Speciality bed ordered from [facility] as instructed from physician: Confirmation#[id number]
[2020-08-29] VITALS (27 sets, daily range): BP systolic 111–173; BP diastolic 57–77
[2020-08-29] MEDS: ACETAMINOPHEN 325 MG SUPP PR PRN (01:10)
[2020-08-29] MEDS: AMPICILLIN SOD 2 GM/NS 100ML 100 ML IV SCH ×2 (03:34→16:33)
[2020-08-29] MEDS: CEFTRIAXONE SOD 2 GM/NS 100 ML 100 ML IV SCH ×2 (03:34→15:03)
[2020-08-29 05:33] LABS: BASOPHILS # (AUTO) 0.1 (0.0-0.1); BASOPHILS % 0.5 % (0.0-1.0); EOSINOPHILS # (AUTO) 0.1 (0.0-0.4); EOSINOPHILS % 0.6 % (0.0-6.0); HEMATOCRIT 27.7 % (38.2-49.6); HEMOGLOBIN 9.2 g/dL (14.0-18.0); LYMPHOCYTES # (AUTO) 3.8 (1.0-3.2); LYMPHOCYTES % 24.8 % (18.0-39.1); MEAN CORPUSCULAR HEMOGLOBIN 28.9 pg (28-32); MEAN CORPUSCULAR HGB CONC 33.2 g/dL (31-35); MEAN CORPUSCULAR VOLUME 87.1 fL (81-99); MONOCYTES # (AUTO) 1.4 (0.2-0.8); MONOCYTES % 8.8 % (4.4-11.3); NEUTROPHILS # (AUTO) 9.8 (2.1-6.9); NEUTROPHILS % 63.4 % (38.7-80.0); PLATELET COUNT 183 x10e3/uL (140-360); RED BLOOD COUNT 3.18 x10e6/uL (4.3-5.7); RED CELL DISTRIBUTION WIDTH 15.3 % (11.7-14.4)
[2020-08-29 06:05] LABS: ALBUMIN 1.9 g/dL (3.5-5.0); ALBUMIN/GLOBULIN RATIO 0.5 (0.8-2.0); ANION GAP 15.8 mmol/L (8-16); CALCIUM 7.4 mg/dL (8.4-10.2); CREATININE, SERUM 5.54 mg/dL (0.72-1.25); POTASSIUM 4.8 mmol/L (3.5-5.1)
[2020-08-29] MEDS: METOPROLOL TARTRATE 25 MG TAB PO SCH ×4 (06:44→17:31)
--- NOTE | 2020-08-29 06:47 | Diagnostic Imaging Report ---
EXAMINATION: CHEST SINGLE (PORTABLE) INDICATION: ^resp failure ^[id number] ^[id number] COMPARISON: 08/28/2020 FINDINGS: AP view TUBES and LINES: Stable endotracheal tube, right IJ central catheter, and enteric tube. LUNGS: Lungs are well inflated. Persistent bilateral airspace opacities. PLEURA: No pneumothorax. Small right pleural effusion. HEART AND MEDIASTINUM: The cardiomediastinal silhouette is enlarged. BONES AND SOFT TISSUES: No acute osseous lesion. Soft tissues are unremarkable. UPPER ABDOMEN: No free air under the diaphragm. IMPRESSION: Bilateral airspace opacities, unchanged or slightly decreased when compared to prior x-ray. Signed by: Dr. Fermin Swift MD on 08/29/2020 6:44 AM
--- NOTE | 2020-08-29 07:00 | NUR ---
Report given to RN. Patient in bed with HOB elevated. Patient on vent Fio2 35% PEEP7 RR 18 [id number]. Vital at 30cc running through OG tube Wilkinson Noted with monimal urine OUPUT. Safety Maintained.
[2020-08-29] MEDS: HEPARIN SOD (PORCINE) 5,000 UNIT/ML VIAL SC SCH ×2 (08:23→20:56)
[2020-08-29] MEDS: BENZTROPINE MESYLATE 1 MG TAB PO SCH ×2 (08:23→17:31)
[2020-08-29] MEDS: LEVETIRACETAM 500MG/5ML VIAL 500 MG in SODIUM CHLORIDE 0.9% 100 ML 100 ML IV SCH ×2 (09:22→20:56)
--- NOTE | 2020-08-29 09:30 | NUR ---
0900 CPAP WEANING TRIAL STARTED. PATIENT TOLERATING WELL. VITAL SIGNS STABLE
[2020-08-29] MEDS ORDERED: HYDRALAZINE HCL 20 MG/ML VIAL IV PRN (10:00)
[2020-08-29 10:15] LABS: ABG HCO3 24 mmol/L (22-26); ABG PCO2 40 mmHg (35-45); ABG PO2 136 mmHg (80-105); ABG TCO2 25
--- NOTE | 2020-08-29 11:00 | NUR ---
ROM EXERCISE TO ALL EXTREMITIES
--- NOTE | 2020-08-29 11:24 | NUR ---
nonresponsive 98 84 129/61 non-arousable eomi to dolls corneal edema pupils are briskly reactive to light neck is supple rrr mechanical vent support not follwoing any command no movement to nox stim ischemic toes a/p septic encephalopathay on antitiotics LP does not show active meningitis, ID following witnesses tonic sz- on aed, continue aed therapy severe encephalopathy- initial EEG was diffusely slow but non epileptic. repeat tomorrow if prolonged diminished LOC can consider neurotropics once hemodynamically stable
--- NOTE | 2020-08-29 11:47 | Progress Note ---
DATE: Pulmonary Critical Care Progress Note SUBJECTIVE: The patient is on a spontaneous breathing trial with 10 of pressure support and 5 of PEEP. He is tolerating this well with a tidal volume in the 400 to 500 range and respiratory rate in the mid 20s. He did have a fever earlier this morning and required some cooling. He is afebrile now. He is still not responding well and does not interact well. PHYSICAL EXAMINATION: VITAL SIGNS: Blood pressure is 129/61, off pressors. Saturation is 100% on a spontaneous breathing trial with respiratory rate in the mid 20s. His pulse is 84, it is in normal sinus rhythm. His temperature is 99.6. HEENT: Shows no facial swelling or erythema. Oropharynx is normal. LYMPHATIC: Shows no submandibular, cervical, or supraclavicular adenopathy. There is a right-sided dialysis catheter in place. The site looks clean. There is no drainage. CARDIAC: Reveals regular rate and rhythm. Normal S1, S2. LUNGS: Auscultation of lungs reveals rhonchorous breath sounds bilaterally. There is no wheezing. ABDOMEN: Soft, nontender. There is no rebound or guarding. EXTREMITIES: Shows no leg edema or calf tenderness. There is no cyanosis or clubbing. SKIN: Shows no rashes. NEUROLOGIC: Shows no focal abnormalities. LABORATORY DATA: White blood cell count is 15.46, hemoglobin is 9.2, and platelet count is 183. BUN to creatinine ratio is 64 to 5.54. Other electrolytes within normal limits. Total bilirubin is 1.9, AST is 187, ALT is 154, alkaline phosphatase is 698, and albumin is 1.9. RADIOGRAPHIC DATA: Chest x-ray shows bilateral airspace opacities. IMPRESSION: 1. Severe metabolic encephalopathy with decreased responsiveness. 2. Acute renal failure. 3. Aspiration pneumonia with septic shock present on admission. 4. Severe gastroenteritis, dehydration with hypovolemia, present on admission. 5. Ischemic hepatitis secondary to shock that is improving. 6. Thrombocytopenia. 7. Atrial fibrillation. 8. Seizure. PLAN: 1. Continue current antibiotics. 2. The patient to have repeat EEG tomorrow. 3. Continue spontaneous breathing trial and repeat ABG. 4. Continue enteral feedings. 5. Continue to treat temperature as needed. 6. Case discussed with Neurology, nursing staff, Respiratory, Internal Medicine, and . Greater than 35 minutes in direct critical care time. MD ARVIND Cisneros/RUDDY /[id number]
--- NOTE | 2020-08-29 16:12 | Progress Note ---
DATE: SUBJECTIVE: The patient is seen and evaluated. Available labs and notes reviewed. Discussed with the nurse. Discussed with Dr. Cobian. The patient is orally intubated, unable to obtain review of system. OBJECTIVE: VITAL SIGNS: Temperature is 98, improved from 101.3 past 48 hours, pulse 84, respirations 25, blood pressure 152/66. GENERAL: Comfortable in bed, orally intubated. CVS: S1, S2. CHEST: Equal expansion, decreased breath sounds, no acute distress. ABDOMEN: Soft. Positive bowel sounds. HEENT: Moist. No pallor. No JVD. EXTREMITIES: Both big toes with some change in color to purple , but overall no significant edema. MEDICATIONS: Reviewed from Infectious Disease point of view, the patient is on ampicillin, Rocephin, Zithromax, acyclovir. LABORATORY DATA: White count of 15.46. No significant change overall from yesterday. Hemoglobin 9.2, platelets 183. Sodium 138, potassium 4.8, and creatinine 5.54. Overall, no significant change. SUMMER screen was negative on 08/23. No new immunology result as far as serology, RPR was not reactive on 08/26, West Nile is pending. COVID-19 not detected on 08/25. Bartonella IgG IgM negative for both henselae and farah Bartonella. His hepatitis C antibody is less than 0.1. MICROBIOLOGY: Blood culture negative on 08/23. Sputum culture, rare gram-positive cocci on 08/24. CSF culture is negative so far with HSV PCR culture pending from CSF. IMAGING: Chest x-ray from today showed bilateral airspace opacities, unchanged or slightly decreased when compared to the prior x-ray. ASSESSMENT AND PLAN: 1. Sepsis on admission. 2. Presumptive encephalitis. Follow up with the cultures. 3. Possible aspiration pneumonia. 4. Acute renal failure. 5. Respiratory failure. 6. Hepatosplenomegaly. 7. Thrombocytopenia due to sepsis. 8. Elevated LFT. Overall, maybe slightly increase in AST, ALT, and ALP, however, total bilirubin dropped from 3.2 to 1.9. 9. Follow up with HSV culture. Continue with the medications as listed above. Continue with vent support, currently on CPAP with FiO2 of 30%, which has dropped from 35% from yesterday with a PEEP of 5, which PEEP has been the same. Overall guarded prognosis. Further management of this patient is based on daily findings on laboratory and physical examination. Thank you for this dictation. Please refer to chart for more information. Discussed with Dr. Cobian in details. Dictated by Tristen Holliday) VENESSA Matt Belinda Cobian MD /MODL /[id number]
--- NOTE | 2020-08-29 17:00 | NUR ---
PATIENT TRANSFERRED TO SPECIALTY ROTATIONAL BED
[2020-08-29] MEDS: ACYCLOVIR SODIUM IV SCH (17:15)
[2020-08-29] MEDS: SODIUM CHLORIDE 0.9% IV SCH (17:15)
--- NOTE | 2020-08-29 18:08 | Progress Note ---
DATE: 08/29/2020 The patient is in the intensive care unit. The patient's chest x-ray is unchanged or as per the radiologist today, slightly improved. Hematologically, the patient definitely has shown improvement. The patient's hemoglobin 9.2, however, this is because of anemia of phlebotomy. He is getting a lot of blood tests every day. Platelets have gone up to 183,000 as opposed to the admission platelets of 22,000. New white count remains approximately the same as 15,460. Chemistry, sodium of 138, potassium 4.8, chloride is 103, CO2 of 24, BUN and creatinine remained about the same as 64 and 5.54. Calcium remains low at 7.4. Liver functions are still high. Albumin extremely low at 1.9. I will confine myself to Hematology only. The diagnosis is dictated in my consultation. MD MAHOAGNY Patterson/RUDDY /[id number]
[2020-08-29 18:26] LABS: ABG HCO3 24 mmol/L (22-26); ABG PCO2 39 mmHg (35-45); ABG PH 7.41 (7.35-7.45); ABG PO2 86 mmHg (80-105)
[2020-08-29 18:27] LABS: ABG TCO2 25
[2020-08-29] MEDS: AZITHROMYCIN 500MG/NS 250 ML 250 ML IV SCH (20:56)
[2020-08-30] VITALS (21 sets, daily range): BP systolic 94–167; BP diastolic 50–85
[2020-08-30] MEDS ORDERED: DEXMEDETOMIDINE 200MCG/NS 50ML 50 ML IV PRN (02:00)
[2020-08-30] MEDS: CEFTRIAXONE SOD 2 GM/NS 100 ML 100 ML IV SCH ×2 (02:45→14:12)
[2020-08-30] MEDS: AMPICILLIN SOD 2 GM/NS 100ML 100 ML IV SCH ×2 (03:52→16:11)
[2020-08-30 05:03] LABS: BASOPHILS # (AUTO) 0.1 (0.0-0.1); BASOPHILS % 0.5 % (0.0-1.0); EOSINOPHILS # (AUTO) 0.1 (0.0-0.4); EOSINOPHILS % 0.6 % (0.0-6.0); HEMATOCRIT 29.7 % (38.2-49.6); HEMOGLOBIN 9.8 g/dL (14.0-18.0); LYMPHOCYTES # (AUTO) 4.6 (1.0-3.2); MEAN CORPUSCULAR HEMOGLOBIN 28.5 pg (28-32); MEAN CORPUSCULAR VOLUME 86.3 fL (81-99); MONOCYTES # (AUTO) 1.4 (0.2-0.8); MONOCYTES % 8.1 % (4.4-11.3); NEUTROPHILS # (AUTO) 11.1 (2.1-6.9); PLATELET COUNT 252 x10e3/uL (140-360); RED BLOOD COUNT 3.44 x10e6/uL (4.3-5.7); RED CELL DISTRIBUTION WIDTH 15.4 % (11.7-14.4)
[2020-08-30 05:26] LABS: ALBUMIN 1.9 g/dL (3.5-5.0); ALBUMIN/GLOBULIN RATIO 0.5 (0.8-2.0); ANION GAP 21.2 mmol/L (8-16); CALCIUM 7.1 mg/dL (8.4-10.2); CREATININE, SERUM 7.01 mg/dL (0.72-1.25); POTASSIUM 5.2 mmol/L (3.5-5.1)
[2020-08-30] MEDS: METOPROLOL TARTRATE 25 MG TAB PO SCH ×4 (06:00→17:08)
--- NOTE | 2020-08-30 07:52 | NUR ---
neurophysiologically unchanged vs : 101 pulse 101 145/64 pupils reactive eomi to dolls no nuchal rigidity tachycardic vent support no purposeful response to any stimulation A/p severe diffuse encephalopathy- metabolic vs infectious delirium no evidence of structural neurological injury thus far. mri initially showed no ischemic or hemorhagic changes EEG severe diffuse encephalopathy without seizures- repeat eeg to evaluate progression of neurophysiological dysfunction encephalitis- overall the LP was reasurring but patient remains on broad coverage, being monitored by ID cultures remain in progress MRI and EEG repeat today
--- NOTE | 2020-08-30 08:28 | Diagnostic Imaging Report ---
TECHNIQUE: Frontal view of the chest. INDICATION: ^resp failure ^[id number] ^0568 COMPARISON: Prior day. DISCUSSION: Limited evaluation due to portable technique. Lines and hardware: Stable. Heart and mediastinum: Stable. Lungs and pleura: There are worsening bilateral interstitial airspace opacities and increasing pleural effusion/atelectasis. Negative for large pneumothorax. Soft tissues and bones: No acute abnormality. IMPRESSION: Worsening bilateral interstitial airspace opacities and increasing size of bilateral pleural effusions. Signed by: Felix Simmons MD on 08/30/2020 8:25 AM
[2020-08-30] MEDS: LEVETIRACETAM 500MG/5ML VIAL 500 MG in SODIUM CHLORIDE 0.9% 100 ML 100 ML IV SCH ×2 (09:03→20:16)
[2020-08-30] MEDS: BENZTROPINE MESYLATE 1 MG TAB PO SCH ×2 (09:03→17:08)
[2020-08-30] MEDS: HEPARIN SOD (PORCINE) 5,000 UNIT/ML VIAL SC SCH ×2 (09:04→20:00)
--- NOTE | 2020-08-30 10:55 | Progress Note ---
DATE: SUBJECTIVE: The patient was tachypneic during the night and had to be switched back to pressure-regulated volume control. He was started on Precedex. This morning, he is back on spontaneous breathing trial with a pressure support of 12 and CPAP of 5. His Precedex is off, but he is not interacting well. PHYSICAL EXAMINATION: VITAL SIGNS: Blood pressure is 118/61 and saturation is 99%. He is on pressure support of 12 with a CPAP of 5 and FiO2 of 30%. HEENT: Shows no facial swelling or erythema. LYMPHATIC: Shows no submandibular, cervical, or supraclavicular adenopathy. CARDIAC: Reveals regular rate and rhythm with normal S1 and S2. LUNGS: Auscultation of lungs reveals decreased breath sounds at the bases. There is no wheezing. ABDOMEN: Soft and nontender. There is no rebound or guarding. EXTREMITIES: Show 1 to 2+ leg edema. There is no calf tenderness. There is no cyanosis or clubbing. SKIN: Shows no rashes. NEUROLOGICAL: Shows the patient not to be responding well. LABORATORY DATA: White blood cell count is 17.7, hemoglobin is 9.8, and the platelet count is 252. The BUN to creatinine ratio is 89 to 7.01 and the carbon dioxide is 20. The potassium is 5.2 and the AST is 144. The ALT is 144 and the alkaline phosphatase is 659. The albumin is 1.9. RADIOGRAPHIC DATA: Chest x-ray shows worsening bilateral interstitial opacities and some small bilateral pleural effusions. IMPRESSION: 1. Severe metabolic encephalopathy with decreased responsiveness. 2. Acute renal failure. 3. Aspiration pneumonia with septic shock, present on admission. 4. Severe gastroenteritis, present on admission. 5. Ischemic hepatitis secondary to shock that is improving. 6. Thrombocytopenia. 7. Atrial fibrillation. PLAN: 1. Continue pressure support and CPAP, and repeat ABG. 2. Continue to follow neurological status. Repeat EEG is pending today. 3. Continue dialysis as needed. 4. Complete antibiotics. 5. Continue enteral feedings. 6. Case discussed with Infectious Disease, Neurology, nursing staff, Respiratory, and family. Greater than 35 minutes in direct critical care time. Edmond Benitez MD [facility]/MODL /[id number]
--- NOTE | 2020-08-30 11:27 | NUR ---
INFECTIOUS DISEASE PROGRESS NOTE DR. LORA SO SUBJECTIVE: The patient is seen and evaluated. Available labs and notes reviewed. Discussed with the nurse. Discussed with Dr. So. The patient is orally intubated, unable to obtain review of system. OBJECTIVE: VITAL SIGNS: per chart GENERAL: Comfortable in bed, orally intubated. HEENT: jaundice and sclerodema to eyes CV: S1, S2. no s3. s4 CHEST: Equal expansion, decreased breath sounds, vent support ABDOMEN: Soft. no distension EXTREMITIES: Both big toes with some change in color to purple, petechial rash on body MEDICATIONS: per chart LABORATORY DATA: reviewed MICROBIOLOGY: pending some results, reviewed IMAGING: per chart, reviewed ASSESSMENT: 1. Sepsis on admission. 2. Presumptive encephalitis. Follow up with the cultures. 3. Possible aspiration pneumonia. 4. Acute renal failure. 5. Respiratory failure. 6. Hepatosplenomegaly. 7. Thrombocytopenia due to sepsis. 8. Elevated LFT. Elevated bilirubin, now decreased 9. Rash PLAN Follow up with HSV culture. Continue with the medications Pt not waking up off sedation Overall prognosis is poor Aline Christy MSN, ADMITTING OFFICE [employer], AGACNP-BC Lora So M.D.
--- NOTE | 2020-08-30 14:32 | Progress Note ---
DATE: 08/30/2020 Renal Progress Note SUBJECTIVE: Events over the past 24 hours have been noted. The patient remains on the ventilator. He is unresponsive. He is off sedation. PHYSICAL EXAMINATION: VITAL SIGNS: Blood pressure 142/64, pulse 77. The patient is not on any vasopressors at this time. His intake and output, it looks like he is at 1060 mL in, 20 mL out. GENERAL: The patient is intubated. He is on the ventilator. He is on CPAP. CARDIOVASCULAR: Regular rate and rhythm. LUNGS: Decreased breath sounds at bases bilaterally. Coarse breath sounds bilaterally. ABDOMEN: Positive bowel sounds. Nontender and nondistended. EXTREMITIES: The patient is wearing SCDs, cannot tell there is edema on the skin exam. He has pneumatic compression devices on his legs. I cannot see if the legs have any reticular markings, but the toes are somewhat cyanotic some of them. The fingertips do not seem to be. LABORATORY RESULTS: His C-ANCA, P-ANCA, anti-GBM antibodies are all negative. White count 80179, H and H 9.8 and 29.7, and platelet count is 252. Sodium 139, potassium 5.2, chloride 103, bicarbonate 20, BUN and creatinine 89 and 7. IMPRESSION/PLAN: 1. Acute kidney injury. 2. Shock. 3. Thrombocytopenia, resolved. 4. Rule out sepsis. 5. Oligoanuria. The patient remains in acute kidney injury. He is a little bit hyperkalemic. He will get dialysis today, 2K bath, 2.5 calcium. We will dialyze him for 4 hours. His chest x-ray does show that he has some increased opacities. We will try to take off maybe 1 L or so depending on his blood pressure. His blood pressure will be limiting factor. If he remains dialysis-dependent whenever he is stable, he will probably need to undergo a kidney biopsy. The renal ultrasound did show some mildly increased echogenicity which is consistent with chronic medical renal disease. However, we do not really have a firm diagnosis of his renal status. Ather MD MARC Lewis/BECKL /[id number]
--- NOTE | 2020-08-30 16:46 | NUR ---
Nutrition Intervention Note RD Recommendation(s) for Physician: -Continue Vital AF 1.2. Recommend advancing towards goal rate of 70 mL/hr as appropriate (provides 2016 kcal, 126 g protein, and 1363 mL water) -Water/fluid management per MD The patient meets criteria for MODERATE protein-calorie malnutrition. Plan of Care: RD following, monitoring for tolerance and adequacy, tube feed recommendation Nutrition reason for involvement: follow up RD Assessment 08/30: Follow up. Pt remains intubated in the ICU. Pt is off sedation, but has decreased responsiveness. Pt is still receiving dialysis as needed and is off pressors. Pt is tolerating TF @ 40 mL/hr. Recommend increasing towards goal as appropriate. Will continue to monitor (08/25/20) Pt is a 64 year old male admitted with severe sepsis. Pt is currently intubated/sedated and is on pressors. Pt received dialysis yesterday due to acute renal failure. Tube feedings were started, but tube feeding was off this morning due to procedure per RN. Unable to obtain nutrition history from pt at this time. Recommendations provided. Will continue to monitor. Principal Problems/Diagnoses: severe sepsis PMH: HTN, afib GI: soft/large/round abdomen, BM not recorded Skin: elbow and sacrum suspected deep tissue injury Labs: (08/30) Na 139, K 5.2, BUN 89, Cr 7.01, Glu 109, Ca 7.1, Total Bili 1.3, AST 144, ALT 144 (08/25) Na 138, K 4.0, BUN 88, Cr 6.73, Glu 119, Ca 7.2, Total Bili 8.0, AST 62 Meds: antibiotics, norepinephrine, heparin, mannitol Ht: 71 in Wt: 225 lbs (08/30) 199.38 lbs (08/25) 189 lbs (08/24) Suspect fluid related or weight error BMI: 26.4 kg/m2 using wt of 189 lbs IBW: 172 lbs Malnutrition Evaluation (08/30/20) The patient meets criteria for MODERATE protein-calorie malnutrition. Energy intake: <50% of estimated energy requirements for >5 days Weight loss: Weight gain during admission Fat loss: unable to evaluate Muscle loss: unable to evaluate Supporting Evidence: Fluid accumulation: 1 to 2+ leg edema per MD note (08/30) Functional Status: not assessed Nutrition Prescription (Diet Order): Vital AF 1.2 @ goal of 70 mL/hr infusing at 40 mL/hr at this time (1152 kcal, 72 g protein) Estimated Nutritional Needs: 6520-1885 calories/day (20-25 kcal/kg CBW): using wt of 189 lbs 129- 172 g protein/day (1.5-2 g pro/kg CBW): using wt of 189 lbs Diet Adequacy: Not meeting calorie needs, Not meeting protein needs Tolerance: tolerating TF Diet Education Needs Assessment: Diet education not indicated; pt is intubated Nutrition Care Level: high Nutrition Diagnosis: Inadequate oral intake related to respiratory failure/mechanical ventilation as evidenced by need for enteral nutrition. Goal: Patient will meet 75-100% of estimated needs by follow up Progress: progressing Interventions: -Composition, Rate, Route Monitoring/Evaluation: -Total energy intake, Total protein intake, Formula/Solution, Weight change Signed: Vi Lua RD, LD
[2020-08-30 17:06] LABS: BILIRUBIN,URINE NEGATIVE (NEGATIVE); CLARITY,URINE HAZY (CLEAR); COLOR,URINE STRAW (YELLOW); KETONES,URINE NEGATIVE (NEGATIVE); LEUKOCYTE ESTERASE ,URINE TRACE (NEGATIVE); NITRITE,URINE NEGATIVE (NEGATIVE); PROTEIN,URINE DIPSTICK 2+ (NEGATIVE); URINE UROBILINOGEN 0.2 mg/dL (0.2 - 1)
[2020-08-30 17:22] LABS: AMORPHOUS SEDIMENT,URINE MODERATE (FEW); BACTERIA,URINE MODERATE /HPF; EPITHELIAL CELLS,URINE FEW /LPF; RBC,URINE 0-5 /HPF (0-5)
[2020-08-30] MEDS: ACYCLOVIR SODIUM IV SCH (20:16)
[2020-08-30] MEDS: SODIUM CHLORIDE 0.9% IV SCH (20:16)
[2020-08-30] MEDS: AZITHROMYCIN 500MG/NS 250 ML 250 ML IV SCH (20:16)
[2020-08-31] VITALS (24 sets, daily range): BP systolic 128–172; BP diastolic 62–94
[2020-08-31] MEDS: METOPROLOL TARTRATE 25 MG TAB PO SCH ×4 (00:36→18:04)
[2020-08-31] MEDS: ACETAMINOPHEN 325 MG/10 ML UDC NG PRN (01:33)
[2020-08-31] MEDS: CEFTRIAXONE SOD 2 GM/NS 100 ML 100 ML IV SCH ×2 (02:52→14:48)
[2020-08-31 04:32] LABS: BASOPHILS # (AUTO) 0.1 (0.0-0.1); BASOPHILS % 0.5 % (0.0-1.0); EOSINOPHILS # (AUTO) 0.1 (0.0-0.4); EOSINOPHILS % 0.8 % (0.0-6.0); HEMATOCRIT 27.8 % (38.2-49.6); HEMOGLOBIN 9.1 g/dL (14.0-18.0); LYMPHOCYTES % 27.4 % (18.0-39.1); MEAN CORPUSCULAR HEMOGLOBIN 28.5 pg (28-32); MEAN CORPUSCULAR HGB CONC 32.7 g/dL (31-35); MEAN CORPUSCULAR VOLUME 87.1 fL (81-99); MONOCYTES # (AUTO) 1.2 (0.2-0.8); MONOCYTES % 8.4 % (4.4-11.3); NEUTROPHILS # (AUTO) 8.7 (2.1-6.9); NEUTROPHILS % 60.5 % (38.7-80.0); PLATELET COUNT 277 x10e3/uL (140-360); RED BLOOD COUNT 3.19 x10e6/uL (4.3-5.7); RED CELL DISTRIBUTION WIDTH 15.3 % (11.7-14.4)
[2020-08-31] MEDS: AMPICILLIN SOD 2 GM/NS 100ML 100 ML IV SCH ×2 (04:43→16:00)
[2020-08-31 04:51] LABS: ALBUMIN 1.8 g/dL (3.5-5.0); ALBUMIN/GLOBULIN RATIO 0.5 (0.8-2.0); ANION GAP 18.6 mmol/L (8-16); CALCIUM 7.2 mg/dL (8.4-10.2); CREATININE, SERUM 5.17 mg/dL (0.72-1.25); POTASSIUM 4.6 mmol/L (3.5-5.1)
[2020-08-31] MEDS: BENZTROPINE MESYLATE 1 MG TAB PO SCH ×2 (08:11→16:24)
[2020-08-31] MEDS: LEVETIRACETAM 500MG/5ML VIAL 500 MG in SODIUM CHLORIDE 0.9% 100 ML 100 ML IV SCH ×2 (08:11→21:03)
[2020-08-31] MEDS: HEPARIN SOD (PORCINE) 5,000 UNIT/ML VIAL SC SCH ×2 (08:13→23:43)
--- NOTE | 2020-08-31 08:16 | Diagnostic Imaging Report ---
TECHNIQUE: Frontal view of the chest. INDICATION: ^Resp Failure ^[id number] ^0515 COMPARISON: Prior day. DISCUSSION: Limited evaluation due to portable technique. Lines and hardware: ET tube 7.5 cm above leona. Right IJ central venous catheter and enteric tube are stable... Heart and mediastinum: Stable. Lungs and pleura: Persistent bilateral interstitial airspace opacities and bilateral pleural effusions/atelectasis. Negative for large pneumothorax. Soft tissues and bones: No acute abnormality. IMPRESSION: ET tube 7.5 cm above leona, consider 3 cm advancement. Persistent bilateral airspace disease and pleural effusions. Signed by: Tim Lundy DO on 08/31/2020 8:13 AM
--- NOTE | 2020-08-31 09:26 | Progress Note ---
DATE: SUBJECTIVE: The patient is afebrile. He remains on mechanical ventilation. He is on pressure support of 10, CPAP of 5 with FiO2 of 30%. He is breathing about 35 times a minute. The patient is not waking up. He has less following commands. He has no chest pain. He is not having any nausea or vomiting. PHYSICAL EXAMINATION: VITAL SIGNS: The patient is afebrile with a T-max is 100.3. The blood pressure is 163/70 and the saturation is 98%. HEENT: Shows no facial swelling or erythema. LYMPHATIC: Shows no submandibular, cervical or supraclavicular adenopathy. CARDIAC: Reveals regular rate and rhythm. Normal S1, S2. LUNGS: Auscultation of lungs reveals crackles at the bases. There is no wheezing. ABDOMEN: Soft, nontender. There is no rebound or guarding. EXTREMITIES: Shows no leg edema or calf tenderness. There is no cyanosis or clubbing. SKIN: Shows no rashes. NEUROLOGICAL: Shows no focal abnormalities. The patient is not responding well. LABORATORY DATA: White blood cells 14.44 and hemoglobin is 9.1. The platelet count is 277. The BUN to creatinine ratio is 61 to 5.17. The other electrolytes are within normal limits. The alkaline phosphatase is 509 and the albumin is 1.8. Total bilirubin is improved to 1.0. Albumin is 1.8. IMPRESSION: 1. Severe metabolic encephalopathy. 2. Acute renal failure. 3. Aspiration pneumonia with septic shock present on admission. 4. Severe gastroenteritis. 5. Ischemic hepatitis secondary to shock. 6. Thrombocytopenia. 7. Atrial fibrillation. PLAN: 1. Continue current antibiotics. 2. Dialysis as needed. 3. Enteral feedings. 4. Continue daily neurological excess. 5. Consider evaluation for tracheostomy. 6. Case discussed with Neurology, Nursing, Respiratory, Infectious Disease and family. Greater than 35 minutes in direct critical care time. Edmond Benitez MD [facility]/MODL /[id number]
--- NOTE | 2020-08-31 09:52 | NUR ---
no substantial neurological changes 100.2 96 162/91 encephalopathic dolls eyes intact but limited by corneal edema pupils 4mm and reactive bilaterally no nuchal rigidity tachycaridc tachypnic mechanical vent grimace to nox stim a/p severe diffuse encephaloathy- no focal brainstem injury brainstem exam is symmetric and intact repeat EEG done- not read on AED can initiate acetylcholinesterase inhibitor to improve neurological responsiveness
--- NOTE | 2020-08-31 12:18 | Progress Note ---
DATE: 08/31/2020 Francisco Simmons is a 64-year-old male, who was referred to me for thrombocytopenia. The patient had multiple tests done by Infectious Disease Q fever, phase I IgG antibodies and Rickettsia IgG antibodies were reported negative. Coronavirus was reported negative. The patient also had hepatitis B core, which was reported negative. Hepatitis B antibody quantitative was reported less than 3.1. Hepatitis B antigen was reported negative. CMV, IgG, and IgM were reported 0.95 and less than 30 respectively was reported negative. West Nile virus was reported negative. Hepatitis C was reported less than 0.1. Chemistry today shows a sodium of 139, potassium 4.6, chloride 72, CO2 of 23. BUN and creatinine, these still remain high at 61 and 5.17 respectively. Calcium low at 7.2. The liver functions are getting slightly better. SGOT 94, SGPT 109, alkaline phosphatase 509, total protein still remain low at 5.7, albumin low at 1.8, globulin slightly high at 3.9. Folic acid level normal at 19.2, B12 level more than 2000. 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 Initial hemoglobin was perfectly fine. White count was coming [place] 22[address]. Platelets have gone up to 277,000. The patient perhaps can have no more CBCs done, however, I have left it up to the attending. Chest x-ray still shows the patient to have bilateral airspace disease and pleural effusions. This is being monitored by the terra cotta setter on the case. The patient is still on acyclovir, ampicillin, Zithromax, ceftriaxone, heparin, mannitol. I have asked for quantitation of immunoglobulins, however, I do not see the reports. I will continue to follow this patient from the hematological point of view. MD MAHOGANY Patterson/MODL /[id number] cc: Hayden Soni MD
[2020-08-31] MEDS ORDERED: FUROSEMIDE INJ 10 MG/ML 4 ML VIAL IV ONE (13:15)
--- NOTE | 2020-08-31 13:23 | Electroencephalogram ---
DATE OF STUDY: 08/30/2020 REQUESTING PHYSICIAN: STUDY: 30-minute EEG. INDICATION FOR PROCEDURE: EEG is being done to evaluate for prolonged nonresponsive state. EEG DATA: Posterior dominant rhythms are absent. Generalized diffuse slow pattern in the delta and theta frequency 47 hertz between 10 and 40 microvolts. At times, we see sharp wave discharges arising from T3 primarily, left parietal temporal region. These do not advance towards true seizure, but does suggest underlying epileptogenicity. Periods of attenuation are noted, lasting several seconds at a time but underneath then we do see low-amplitude slow waves both in the theta frequency and at times in the high frequency beta region. This EEG is abnormal level of 3. 1. Generalized diffuse slow waves. 2. Periods of attenuation. 3. Abnormality. 4. Sharp wave discharges in the left parietal region. EEG INTERPRETATION: This EEG is abnormal, suggestive of severe diffuse encephalopathy with underlying evidence of epileptogenicity arising focally from the left hemisphere. LYLY ETIENNE MD RR/MODL /[id number]
--- NOTE | 2020-08-31 13:32 | Progress Note ---
DATE: 08/31/2020 Renal Progress Note ADDENDUM: The patient is still oligoanuric. He has not really put out very much. I will go ahead and give 60 mg of Lasix IV x1 to try to convert him to nonoliguria. Ather MD MARC Lweis/MODL /[id number]
--- NOTE | 2020-08-31 13:48 | Progress Note ---
DATE: 08/31/2020 Renal Progress Note SUBJECTIVE: Events over the past 24 hours have been noted. The patient remains on the ventilator. He is still unresponsive. Sedation has been off for a while. He underwent an EEG yesterday. Results are pending. In the last 24 hours, his intake has been 3230, output 360 mL. PHYSICAL EXAMINATION: VITAL SIGNS: Blood pressure 157/92 and pulse 89. GENERAL: He is unresponsive. He is on a ventilator. He is intubated. CARDIOVASCULAR: Regular rate and rhythm. LUNGS: Decreased breath sounds bilaterally. There are coarse breath sounds bilaterally and some high-pitched squeals bilaterally also. ABDOMEN: Positive bowel sounds. Nontender and nondistended. EXTREMITIES: No edema. The patient does have some cyanosis of the toes. He is wearing pneumatic compression stockings. LABORATORY RESULTS: Sodium 139, potassium 4.6, chloride 102, bicarbonate 23, BUN and creatinine 61 and 5.17 respectively. Calcium is 7.2. Repeat urinalysis shows 0-5 red cells, whereas before was more than 50 red cells. The white cells have gone down from 11-20 to 6-10. So far all the serologies are negative. IMPRESSION: 1. Acute kidney injury. 2. Shock. 3. Thrombocytopenia, resolved. 4. Oligoanuria. PLAN: The patient was dialyzed yesterday. We used potassium, 2.5 calcium bath and we took off 1 L yesterday and he remained hemodynamically stable after that 1 L fluid removal. Even today, he is hemodynamically stable. There is no need for dialysis today. We will evaluate him and likely we will have dialysis tomorrow. Over the next few days, we will see how much his kidney function recovers. If it does not, if he still remains dialysis-dependent, a kidney biopsy will be done. Ather MD MARC Lewis/RUDDY /[id number]
--- NOTE | 2020-08-31 13:55 | NUR ---
Received order for LTAC eval. CM called pt's Stephanie at [phone]. Phone went straight to . CM left for callback.
[2020-08-31] MEDS: LABETALOL HCL 5 MG/ML 20ML VIAL IV PRN (16:18)
[2020-08-31] MEDS: ACYCLOVIR SODIUM IV SCH (16:24)
[2020-08-31] MEDS: SODIUM CHLORIDE 0.9% IV SCH (16:24)
--- NOTE | 2020-08-31 16:30 | NUR ---
Received call back from pt's Stephanie Simmons [phone]. Spoke with her about order for LTAC eval and gave options of facilities close to the area - [facility], [place] and [facility]. She gave choice for [facility]. Signed choice letter placed in front of chart. Referral was sent to Haylie with [facility]. Received confirmation from Haylie that she got the referral.
--- NOTE | 2020-08-31 17:10 | NUR ---
INFECTIOUS DISEASE PROGRESS NOTE DR. LORA SO SUBJECTIVE: The patient is seen and evaluated. Available labs and notes reviewed. Discussed with the nurse. Discussed with Dr. So. The patient is orally intubated, unable to obtain review of system. OBJECTIVE: VITAL SIGNS: per chart GENERAL: Comfortable in bed, orally intubated. HEENT: jaundice and sclerodema to eyes CV: S1, S2. no s3. s4 CHEST: Equal expansion, decreased breath sounds, vent support ABDOMEN: Soft. no distension EXTREMITIES: Both big toes with some change in color to purple, petechial rash on body MEDICATIONS: per chart LABORATORY DATA: reviewed MICROBIOLOGY: pending some results, reviewed IMAGING: per chart, reviewed ASSESSMENT: 1. Sepsis on admission. 2. Presumptive encephalitis. Follow up with the cultures. 3. Possible aspiration pneumonia. 4. Acute renal failure. 5. Respiratory failure. 6. Hepatosplenomegaly. 7. Thrombocytopenia due to sepsis. 8. Elevated LFT. Elevated bilirubin, now decreased 9. Rash PLAN Follow up with HSV culture. will stop ampicillin CT the chest Sedation is off, and no meaningful response at this time Overall prognosis is poor Aline Christy MSN, WRAPPER COUNTER, AGACNP-BC examined with Lora So M.D.
--- NOTE | 2020-08-31 19:00 | NUR ---
Bedside report received. Patient in bed with HOB elevated. PUPILS 1 mm and Sluggish. sclera edema noted Patient noted on vent PRVC Fio2 30 % PEEP5 RR 12 [id number]. RIJ noted. Vital at 40cc through OG tube. [place] noted with dressing dry and Intact. Wilkinson Noted draining clear yellow urine by [place] Safety Maintained. Will continue to monitor.
[2020-08-31] MEDS: AZITHROMYCIN 500MG/NS 250 ML 250 ML IV SCH (20:00)
--- NOTE | 2020-08-31 20:05 | Consultation ---
DATE OF CONSULTATION: 08/31/2020 CHIEF COMPLAINT: Aspiration pneumonia. HISTORY OF PRESENT ILLNESS: This 64-year-old male, admitted with nausea and vomiting, fevers, and pneumonia, likely secondary to aspiration. The patient was intubated approximately a week ago. The patient's mental status has been obtunded and expected prolonged ventilation mechanically. PAST MEDICAL HISTORY: Positive for hypertension, atrial fibrillation, pneumonia. PAST SURGICAL HISTORY: Unremarkable. ALLERGIES: THE PATIENT IS ALLERGIC TO PROMETHAZINE. SOCIAL HISTORY: No history of severe alcohol or smoking. REVIEW OF SYSTEMS: Unobtainable. PHYSICAL EXAMINATION: VITAL SIGNS: Stable. He is afebrile. He is awake. The patient is intubated, sedated. HEENT: Sclerae anicteric. NECK: Supple. LUNGS: Bilateral rhonchi. HEART: Regular rate and rhythm. ABDOMEN: Soft and nontender. EXTREMITIES: No cyanosis or edema. LABORATORY DATA: White cell count is 14,000, hemoglobin of 9, and platelet count of 277. Creatinine of 5. Liver function tests; bilirubin 1, alkaline phosphatase of 500. INR of 1.0, PT of 14. Chest x-ray show persistent bilateral infiltrates and pleural effusions. ASSESSMENT: Aspiration pneumonia in a patient who is non-weanable on the ventilators. PLAN: We discussed tracheostomy placement with family, where all attendant risks discussed. Hi Tucker MD DNL/MODL /[id number]
--- NOTE | 2020-08-31 21:00 | NUR ---
Dr Benitez notified about Patient's breathing in the high 45's-50's. Order received to restart Dexmedetomidine. Will continue to monitor Patient.
[2020-09-01] VITALS (23 sets, daily range): BP systolic 101–157; BP diastolic 52–89
[2020-09-01] MEDS: METOPROLOL TARTRATE 25 MG TAB PO SCH ×4 (00:34→16:53)
[2020-09-01] MEDS: CEFTRIAXONE SOD 2 GM/NS 100 ML 100 ML IV SCH ×2 (03:07→14:52)
[2020-09-01 04:58] LABS: BASOPHILS # (AUTO) 0.1 (0.0-0.1); BASOPHILS % 0.9 % (0.0-1.0); EOSINOPHILS # (AUTO) 0.1 (0.0-0.4); EOSINOPHILS % 0.7 % (0.0-6.0); HEMATOCRIT 28.2 % (38.2-49.6); HEMOGLOBIN 9.1 g/dL (14.0-18.0); LYMPHOCYTES # (AUTO) 3.1 (1.0-3.2); LYMPHOCYTES % 20.9 % (18.0-39.1); MEAN CORPUSCULAR HEMOGLOBIN 29.1 pg (28-32); MEAN CORPUSCULAR HGB CONC 32.3 g/dL (31-35); MEAN CORPUSCULAR VOLUME 90.1 fL (81-99); MONOCYTES # (AUTO) 1.4 (0.2-0.8); MONOCYTES % 9.5 % (4.4-11.3); NEUTROPHILS # (AUTO) 9.8 (2.1-6.9); NEUTROPHILS % 66.2 % (38.7-80.0); PLATELET COUNT 342 x10e3/uL (140-360); RED BLOOD COUNT 3.13 x10e6/uL (4.3-5.7); RED CELL DISTRIBUTION WIDTH 15.3 % (11.7-14.4)
[2020-09-01 05:19] LABS: ALBUMIN 1.9 g/dL (3.5-5.0); ALBUMIN/GLOBULIN RATIO 0.5 (0.8-2.0); ANION GAP 21.7 mmol/L (8-16); CREATININE, SERUM 6.71 mg/dL (0.72-1.25); POTASSIUM 5.7 mmol/L (3.5-5.1)
[2020-09-01] MEDS: BENZTROPINE MESYLATE 1 MG TAB PO SCH ×2 (08:45→16:25)
[2020-09-01] MEDS: DONEPEZIL HCL 5 MG TAB PO SCH (08:45)
--- NOTE | 2020-09-01 09:28 | Progress Note ---
DATE: The patient had some tachypnea last night and had to be switched back to assist control. The patient was started on Precedex again. He is still not responding well. He only response to very noxious stimuli. He is not following instructions. PHYSICAL EXAMINATION: VITAL SIGNS: The patient has a temperature of 100.2. Blood pressure is 129/58 and saturations are 99%. He is currently on a PRVC mode of ventilation with a FiO2 of 35% and PEEP of 5. He is on Precedex. HEENT: Shows no facial swelling or erythema. There is an oral endotracheal tube in place. LYMPHATIC: Shows no submandibular, cervical, or supraclavicular adenopathy. CARDIAC: Reveals regular rate and rhythm with normal S1, S2. LUNGS: Auscultation of lungs show decreased breath sounds at the bases. There is no wheezing. ABDOMEN: Soft nontender. There is no rebound or guarding. EXTREMITIES: Show no leg edema or calf tenderness. There is no cyanosis or clubbing. SKIN: Shows no rashes. NEUROLOGICAL: Shows the patient not to be responding well as noted above. LABORATORY DATA: The white blood cell count is 14.8 and hemoglobin is 9.1. The platelet count is 342. The BUN to creatinine ratio is 86 to 6.7. The potassium is 5.7, carbon dioxide is 20. The total bilirubin is 0.9 and the AST is 51. ALT is 56. Alkaline phosphatase is 412. The albumin is 1.9. IMPRESSION: 1. Acute renal failure. 2. Severe metabolic encephalopathy. 3. Aspiration pneumonia with septic shock, present on admission. 4. Ischemic hepatitis secondary to shock. 5. Severe gastroenteritis. 6. Thrombocytopenia. PLAN: 1. The patient is receiving dialysis today. 2. Continue current antibiotics. 3. Continue enteral feedings. 4. Case discussed with General Surgery. Possible tracheostomy on Sunday. 5. Case also discussed with Nursing, Neurology, and . Greater than 35 minutes in direct critical care. Edmond Benitez MD [facility]/MODL /[id number]
[2020-09-01] MEDS: HEPARIN SOD (PORCINE) 5,000 UNIT/ML VIAL SC SCH ×2 (09:31→21:00)
--- NOTE | 2020-09-01 09:35 | NUR ---
no substantial neurological changes 100.5 88 122/56 encephalopathic dolls eyes intact but limited by corneal edema pupils 4mm and reactive bilaterally no nuchal rigidity rrr tachypnic mechanical vent grimace to nox stim a/p severe diffuse encephaloathy- no focal brainstem injury brainstem exam is symmetric and intact repeat EEG done- improving EEG on AED can initiate acetylcholinesterase inhibitor to improve neurological responsiveness discussed with at length
--- NOTE | 2020-09-01 10:53 | Progress Note ---
DATE: 09/01/2020 SUBJECTIVE: The patient is still in intensive care unit. The patient still intubated. The chest x-ray is not available today. Hemoglobin is very stable [place] 9.1[place] [address], and platelets of 342,000. In spite of instructing the nurses not to do a CBC as the patient is getting anemic because of anemia of phlebotomy as the CBC being done every day and the patient has recovered completely from the low platelets of 22,000, which were on 08/23/2020. Hemoglobin was normal [place] 13.2[place] [address], which has not changed. The chest x-ray has not changed. The renal functions have not changed. Detail lab was dictated yesterday confine myself to Hematology. MD MAHOGANY Patterson/RUDDY /[id number]
[2020-09-01 12:59] LABS: BASOPHILS # (AUTO) 0.1 (0.0-0.1); BASOPHILS % 0.7 % (0.0-1.0); EOSINOPHILS # (AUTO) 0.1 (0.0-0.4); EOSINOPHILS % 0.6 % (0.0-6.0); HEMATOCRIT 29.4 % (38.2-49.6); HEMOGLOBIN 9.6 g/dL (14.0-18.0); LYMPHOCYTES # (AUTO) 2.9 (1.0-3.2); LYMPHOCYTES % 20.3 % (18.0-39.1); MEAN CORPUSCULAR HGB CONC 32.7 g/dL (31-35); MEAN CORPUSCULAR VOLUME 88.8 fL (81-99); MONOCYTES # (AUTO) 1.4 (0.2-0.8); MONOCYTES % 9.8 % (4.4-11.3); NEUTROPHILS # (AUTO) 9.7 (2.1-6.9); NEUTROPHILS % 67.4 % (38.7-80.0); PLATELET COUNT 344 x10e3/uL (140-360); RED BLOOD COUNT 3.31 x10e6/uL (4.3-5.7); RED CELL DISTRIBUTION WIDTH 15.6 % (11.7-14.4)
--- NOTE | 2020-09-01 13:01 | NUR ---
patient tolerated HD x 4hrs and 2 l removed Addendum: 09/01/20 at 1302 by Sona Bustamante RN Amended: Links added.
[2020-09-01 13:18] LABS: AMYLASE 258 U/L (25-125); LIPASE 331 U/L (8-78)
[2020-09-01] MEDS ORDERED: HEPARIN SOD (PORCINE) 1000 UNIT/ML SDV ONE (13:57)
--- NOTE | 2020-09-01 14:03 | Progress Note ---
DATE: SUBJECTIVE: Mr. Simmons remains in intensive care unit. The patient is intubated, still noncommunicative. The plan for him to go to rehab or LTAC. Events noted. He is still running fever, 100.3, heart rate 76, respiration 17, blood pressure 120/55. LABORATORY DATA: His cultures still negative. His herpes simplex culture still negative. His white count is 14.8, hemoglobin 9.1, and his platelet of 342. His RPR is negative. COVID-19 is negative. SUMMER, C-ANCA, P-ANCA all negative. His complement C is 146. Sodium 139, potassium 5.7 with a creatinine 6.7. Total protein 5.9. White count 14.8 and hemoglobin 9.1. MEDICATION LIST: He is currently on heparin. He is on Aricept, Cogentin, Lopressor, Rocephin, azithromycin, and acyclovir. He is on Cardizem, digoxin, and mannitol. He is currently on levetiracetam. PHYSICAL EXAMINATION: GENERAL: He is noncommunicative with fever. He has been running fever all along. HEENT: Normocephalic. NECK: Supple. CHEST: Few crackles. HEART: S1 and S2. ABDOMEN: Soft. Bowel sounds present. EXTREMITIES: No edema. SKIN: No rash. IMPRESSION: Altered mental status, possible meningoencephalitis, workup is negative so far. We are still waiting on HSV. Fever. It could be drug fever or workup at the present time. We will discuss with Neuro. We will check CBC with manual diff. Get sedimentation rate and C-reactive protein. We will also get a lactic acid. We will keep him on Rocephin for the time being. If the herpes was negative, we will discontinue acyclovir. Altered mental status, respiratory failure, still very difficult case. Discussed with Dr. Benitez. MD SETH Cornell/MODL /[id number]
--- NOTE | 2020-09-01 14:27 | NUR ---
ROM TO ALL EXTREMITIES
[2020-09-01] MEDS: LEVETIRACETAM 500MG/5ML VIAL 500 MG in SODIUM CHLORIDE 0.9% 100 ML 100 ML IV SCH ×2 (14:29→21:34)
[2020-09-01] MEDS: IRON SUCROSE 100 MG in SODIUM CHLORIDE 0.9% 100 ML 100 ML IV SCH (14:30)
[2020-09-01] MEDS ORDERED: CALCIUM GLUCONATE 10% INJ 4.65 MEQ in SODIUM CHLORIDE 0.9% 50ML 50 ML IV ONE (17:00)
--- NOTE | 2020-09-01 19:20 | Progress Note ---
DATE: 09/01/2020 SUBJECTIVE: The patient remains still unresponsive. He is only grimaces to like very deep stimuli, noxious stimuli. He is still unresponsive. He is intubated on a ventilator. PHYSICAL EXAMINATION: VITAL SIGNS: Blood pressure 112/61, pulse 78, he is not on any of vasopressors. In the last 24 hours, intake has been 830, output 210. GENERAL: The patient is unresponsive. He is intubated. He is on a ventilator. HEENT: No increased JVD. CARDIOVASCULAR: Regular rate and rhythm. LUNGS: Decreased breath sounds at bases bilaterally. There are coarse breath sounds bilaterally and some high-pitched squeals bilaterally also. ABDOMEN: Positive bowel sounds. Nontender and nondistended. EXTREMITIES: No edema. The patient has some cyanosis of the toes. He is wearing pneumatic compression stockings. LABORATORY RESULTS: White count 14, hemoglobin and hematocrit 9 and 29 respectively, platelet count 344. Sodium 139, potassium 5.7, chloride 103, bicarbonate 20, BUN and creatinine 86 and 6.7 respectively. IMPRESSION: 1. Acute kidney injury. 2. Respiratory failure. 3. Shock, resolved. 4. Hyperkalemia. PLAN: The patient underwent dialysis today. We dialyzed him for 4 hours with 2 potassium, 2.5 calcium bath. His calcium is still low. We will give him 1 amp of calcium gluconate. Yesterday with the Lasix, according to nurse, he put out about 500 mL of urine output like in 24 hours. Ather MD MARC Lewis/RUDDY /[id number]
--- NOTE | 2020-09-01 19:41 | Diagnostic Imaging Report ---
EXAM: CT Chest WITHOUT contrast INDICATION: FOLLOW UP PNEUMONIA COMPARISON: Multiple prior chest radiographs including most recent on 08/31/2020. CT abdomen and pelvis on 08/23/2020. TECHNIQUE: Chest was scanned utilizing a multidetector helical scanner from the lung apex through the level of the adrenal glands without administration of IV contrast. Absence of intravenous contrast decreases sensitivity for detection of lymphadenopathy and vascular pathology. Coronal and sagittal reformations were obtained. Routine protocol was performed. IV CONTRAST: None COMPLICATIONS: None RADIATION DOSE: Total DLP: 488 mGy*cm Estimated effective dose: (DLP x 0.014 x size factor) mSv CTDIvol has been reviewed. It is below the limits set by the Radiation Protocol Committee (RPC). Dose modulation, iterative reconstruction, and/or weight based adjustment of the mA/kV was utilized to reduce the radiation dose to as low as reasonably achievable. FINDINGS: LINES/ TUBES: There is an endotracheal tube which terminates approximately 6 cm above the leona. Right central venous catheter which terminates at the upper SVC. LUNGS, PLEURA AND AIRWAYS: Evaluation of the lungs is limited by respiratory motion artifact. There is diffuse groundglass opacity throughout both lungs, likely due to low volumes. There is small to moderate bilateral pleural effusion with superimposed bibasilar opacities and air bronchograms. The central airways are normal. HEART AND MEDIASTINUM: The thyroid gland is normal. No mediastinal, hilar or axillary lymphadenopathy. The heart is normal is enlarged. There is no pericardial effusion. There are mild atherosclerotic calcifications in the aorta and coronary arteries. UPPER ABDOMEN: Unremarkable. BONES: The visualized bony thorax is within normal limits. SOFT TISSUES: Redemonstration of cystic lesion in the lower anterior thoracic wall which measures approximately 3.6 x 1.8 cm, likely a sebaceous cyst. The soft tissues otherwise normal. IMPRESSION: 1. Phlbu-sv-ilooexsw bilateral pleural effusion. 2. Opacification of bilateral lung bases with air bronchograms which may represent superimposed atelectasis and/or pneumonia in the proper clinical context. 3. Cardiomegaly with atherosclerotic calcification of the coronary vessels. 4. Support lines and tubes as above. Signed by: Marvin Garcia MD on 09/01/2020 7:38 PM
[2020-09-02] VITALS (23 sets, daily range): BP systolic 101–182; BP diastolic 46–93
[2020-09-02] MEDS: CEFTRIAXONE SOD 2 GM/NS 100 ML 100 ML IV SCH (04:25)
[2020-09-02 04:49] LABS: BASOPHILS # (AUTO) 0.1 (0.0-0.1); BASOPHILS % 0.7 % (0.0-1.0); EOSINOPHILS # (AUTO) 0.1 (0.0-0.4); EOSINOPHILS % 0.8 % (0.0-6.0); HEMATOCRIT 25.8 % (38.2-49.6); HEMOGLOBIN 8.3 g/dL (14.0-18.0); LYMPHOCYTES # (AUTO) 2.7 (1.0-3.2); LYMPHOCYTES % 22.9 % (18.0-39.1); MEAN CORPUSCULAR HEMOGLOBIN 29.1 pg (28-32); MEAN CORPUSCULAR HGB CONC 32.2 g/dL (31-35); MEAN CORPUSCULAR VOLUME 90.5 fL (81-99); MONOCYTES # (AUTO) 1.3 (0.2-0.8); MONOCYTES % 10.7 % (4.4-11.3); NEUTROPHILS # (AUTO) 7.5 (2.1-6.9); NEUTROPHILS % 63.4 % (38.7-80.0); PLATELET COUNT 330 x10e3/uL (140-360); RED BLOOD COUNT 2.85 x10e6/uL (4.3-5.7); RED CELL DISTRIBUTION WIDTH 15.8 % (11.7-14.4)
--- NOTE | 2020-09-02 05:00 | NUR ---
Patient received bed bath. Patient in bed with HoB elevated at 30. VSS. Safety Maintained. FlexiSeal placed for Loose Liquid Stool.
[2020-09-02 05:12] LABS: ALBUMIN 1.8 g/dL (3.5-5.0); ALBUMIN/GLOBULIN RATIO 0.5 (0.8-2.0); ANION GAP 19.5 mmol/L (8-16); CREATININE, SERUM 4.99 mg/dL (0.72-1.25); POTASSIUM 4.5 mmol/L (3.5-5.1)
[2020-09-02] MEDS: METOPROLOL TARTRATE 25 MG TAB PO SCH ×4 (06:17→17:41)
--- NOTE | 2020-09-02 06:59 | NUR ---
Bedside Report given to RN. VSS. Safety Maintained
--- NOTE | 2020-09-02 08:24 | Diagnostic Imaging Report ---
TECHNIQUE: Frontal view of the chest. INDICATION: Respiratory failure COMPARISON: CT dated one day earlier. Chest x-ray dated 08/31/2020 DISCUSSION: Limited evaluation due to portable technique. Lines and hardware: Stable. Heart and mediastinum: Stable. Lungs and pleura: Stable basilar patchy and hazy airspace opacities. Negative for large pneumothorax or significant interval worsening compared x-ray dated 08/31/2020. Soft tissues and bones: No acute abnormality. IMPRESSION: Stable exam compared to 08/31/2020 measuring small bilateral pleural effusions with opacities concerning for atelectasis or multifocal infection. Signed by: Felix Simmons MD on 09/02/2020 8:21 AM
[2020-09-02] MEDS: BENZTROPINE MESYLATE 1 MG TAB PO SCH ×2 (08:31→17:40)
[2020-09-02] MEDS: DONEPEZIL HCL 5 MG TAB PO SCH (08:31)
[2020-09-02] MEDS: LEVETIRACETAM 500MG/5ML VIAL 500 MG in SODIUM CHLORIDE 0.9% 100 ML 100 ML IV SCH ×2 (08:45→21:28)
[2020-09-02] MEDS: IRON SUCROSE 100 MG in SODIUM CHLORIDE 0.9% 100 ML 100 ML IV SCH (08:45)
--- NOTE | 2020-09-02 08:54 | NUR ---
TUBE FEED OFF FOR RENAL BIOPSY
[2020-09-02] MEDS: HEPARIN SOD (PORCINE) 5,000 UNIT/ML VIAL SC SCH (09:06)
--- NOTE | 2020-09-02 09:26 | NUR ---
no substantial neurological changes 100. 81 122/56 encephalopathic dolls eyes intact but limited by corneal edema pupils 4mm and reactive bilaterally no nuchal rigidity rrr tachypnic mechanical vent grimace to nox stim a/p severe diffuse encephaloathy- no focal brainstem injury brainstem exam is symmetric and intact repeat EEG done- improving EEG on AED can initiate acetylcholinesterase inhibitor to improve neurological responsiveness discussed with at length may add amantadine once fever abates
--- NOTE | 2020-09-02 09:55 | Progress Note ---
DATE: 09/02/2020 SUBJECTIVE: Francisco Simmons is a 64-year-old male, who was referred to me for evaluation of thrombocytopenia of less than 30,000. The patient still remains intubated. The patient's hemoglobin has been dropping as I have pointed out for quite some time. This is anemia of phlebotomy as the patient does get multiple blood tests every day including the CBC. The creatinine is still high at 4.99. The transaminases are still high. SGOT 46, SGPT 61, alkaline phosphatase 311. The patient's albumin is dropping with albumin level being low at 1.8, total protein is 5.6, globulin is slightly high at 3.8. I have quantitated the immunoglobulins, however, the results are still pending. The patient still continues to receive aggressive antibiotics. If the patient survives, the patient might need a bone marrow as the patient had presented with renal failure, bilateral bronchopneumonia. The differential is multiple myeloma. Thank you for allowing me to participate in management of this patient. I will confine myself to Hematology only. MD MAHOGANY Patterson/RUDDY /[id number]
--- NOTE | 2020-09-02 10:20 | Progress Note ---
DATE: Pulmonary Critical Care Progress Note SUBJECTIVE: The patient is slightly more arousable today. He moves and responds to stimuli, but he does not have purposeful movement. He is not following instructions. He remains on the assist-control mode of ventilation. PHYSICAL EXAMINATION: VITAL SIGNS: Blood pressure is 154/63, saturation is 99%. He is currently on assist control with a PEEP of 5 and FiO2 of 35%. His T-max is 100.2. HEENT: Shows no facial swelling or erythema. LYMPHATIC: Shows no submandibular, cervical, or supraclavicular adenopathy. CARDIAC: Reveals regular rate and rhythm. Normal S1 and S2. LUNGS: Auscultation of lungs reveals crackles at the bases. There is no wheezing. ABDOMEN: Soft and nontender. There is no rebound or guarding. EXTREMITIES: Show no leg edema or calf tenderness. There is no cyanosis or clubbing. SKIN: Shows no rashes. NEUROLOGICAL: Shows no focal abnormalities. LABORATORY DATA: BUN to creatinine is 60 to 4.99. The other electrolytes are within normal limits. Albumin is 1.8. White blood cell count is 11.7, hemoglobin is 8.3, and platelet count is 330. IMPRESSION: 1. Severe metabolic encephalopathy. 2. Acute renal failure. 3. Aspiration pneumonia with septic shock, present on admission. 4. Ischemic hepatitis secondary to shock. 5. Severe gastroenteritis. 6. Anemia, unspecified. 7. Thrombocytopenia, that has improved. PLAN: 1. Continue to monitor mental status. Once the patient is able to follow commands, we can proceed with spontaneous breathing trial and probable extubation. 2. Complete current antibiotics. 3. Continue enteral feedings. 4. We will hold off on tracheostomy for now as the patient may be a candidate for extubation. 5. Case discussed with General Surgery, Neurology, Nursing, Respiratory, and . Greater than 35 minutes in direct critical care time. Edmond Benitez MD Tracie/MODL /[id number]
--- NOTE | 2020-09-02 12:23 | NUR ---
Spoke with Haylie Ibrahim, states they received approval from insurance and she will work on getting a bed.
[2020-09-02 12:52] LABS: ABG HCO3 24 mmol/L (22-26); ABG PCO2 39 mmHg (35-45); ABG PO2 125 mmHg (80-105); ABG TCO2 25
[2020-09-02] MEDS: LABETALOL HCL 5 MG/ML 20ML VIAL IV PRN (14:24)
--- NOTE | 2020-09-02 14:26 | Progress Note ---
DATE: 09/02/2020 ADDENDUM: I spoke to the patient's , Stephanie, on the phone about the patient's renal status and also about doing a kidney biopsy. I explained to Ms. Brown that right now we do not have a firm diagnosis of why he is in renal failure nor can we say at this time if he will be able to come off dialysis soon or whether he will be dialysis-dependent. I explained to her that I am doing a kidney biopsy to find out the answers to these questions. Explained that the biopsy will be done by the interventional radiologist. We will go over the risks of the procedure, but I did explain that bleeding is one complication, however, he is not on blood thinners, so the risk of this should be minimized. The patient's agrees to proceed for the kidney biopsy for Mr. Francisco Simmons. Ather MD MARC Lewis/RUDDY /[id number]
--- NOTE | 2020-09-02 15:30 | NUR ---
INFECTIOUS DISEASE PROGRESS NOTE DR. LORA SO SUBJECTIVE: Mr. Simmons remains in intensive care unit. The patient is intubated, still noncommunicative. The plan for him to go to rehab or LTAC. Events noted. LABORATORY DATA: PER CHART MEDICATION LIST: PER CHART . PHYSICAL EXAMINATION: GENERAL: non communicative HEENT: critically ill in ICU, intubated, sedation is off NECK: Supple. no JVD CHEST: Few crackles. symmetric expansion HEART: S1 and S2. no s3, s4 ABDOMEN: Soft. Bowel sounds present. EXTREMITIES: No edema. moves all SKIN: No rash. IMPRESSION: 1. Sepsis on admission. 2. Presumptive encephalitis. Follow up with the cultures. 3. Possible aspiration pneumonia. 4. Acute renal failure. 5. Respiratory failure. 6. Hepatosplenomegaly. 7. Thrombocytopenia due to sepsis. 8. Elevated LFT. Elevated bilirubin, now decreased 9. Rash PLAN: overall very difficult case with little clinical improvement with IV ABT Will continue the same IV ABT HSV neg, Acyclovir d/c Guarded to poor prognosis Aline Christy MSN, INFRASTRUCTURE ENGINEER, [facility]- Lora So M.D.
[2020-09-02] MEDS ORDERED: DEXMEDETOMIDINE 200MCG/NS 50ML 50 ML IV ONE (15:40)
--- NOTE | 2020-09-02 15:59 | NUR ---
patient agitated and restless. suctioned and repositioned. patient continues to breathe over the vent. Dr Benitez notified and new orders to start Precedex and evaluate for possible extubation tomorrow. , Stephanie, at bedside
--- NOTE | 2020-09-02 16:12 | Progress Note ---
DATE: 09/02/2020 Renal Progress Note SUBJECTIVE: Events over the past 24 hours have been noted. The patient remains intubated on a ventilator. Today, he does seem a little bit more arousable. The past 24 hours, it looks like he has had 746 mL in and 2020 out, but actually 2 liters of the output is from dialysis that was done yesterday. OBJECTIVE: VITAL SIGNS: Blood pressure 139/62, temperature 99.5. GENERAL: The patient remains intubated. He is on a ventilator. HEENT: No increased JVD. The patient has a temporary Franklyn catheter in the right neck area. CARDIOVASCULAR: Regular rate and rhythm. LUNGS: Decreased breath sounds at the bases bilaterally. There are coarse breath sounds bilaterally and some high-pitched squeals bilaterally also. ABDOMEN: Positive bowel sounds. Nontender and nondistended. EXTREMITIES: No edema. The patient has some cyanosis of the toes. He is wearing pneumatic compression stockings. LABORATORY RESULTS: White count 11.8, hemoglobin and hematocrit 8.3 and 25.8. Sodium 140, potassium 4.5, chloride 102, bicarbonate 22, BUN and creatinine 60 and 4.99 respectively. Calcium is 7. IMPRESSION: 1. Acute kidney injury. 2. Respiratory failure. 3. Shock, resolved. PLAN: The patient was dialyzed yesterday and there is no need for dialysis today. It looks like the renal function is not improving. As of yet, I do not have an explanation, I am planning on an image-guided kidney biopsy to be done to determine the etiology of his kidney failure and likely he will need dialysis tomorrow. Ather MD MARC Lewis/MODL /[id number]
[2020-09-02] MEDS ORDERED: LACTATED RINGER'S 1,000 ML ONE (20:45)
[2020-09-03] VITALS (25 sets, daily range): BP systolic 113–164; BP diastolic 59–99
[2020-09-03 04:48] LABS: BASOPHILS # (AUTO) 0.1 (0.0-0.1); EOSINOPHILS # (AUTO) 0.1 (0.0-0.4); EOSINOPHILS % 0.7 % (0.0-6.0); HEMATOCRIT 25.5 % (38.2-49.6); HEMOGLOBIN 8.2 g/dL (14.0-18.0); LYMPHOCYTES # (AUTO) 2.2 (1.0-3.2); LYMPHOCYTES % 17.9 % (18.0-39.1); MEAN CORPUSCULAR HEMOGLOBIN 29.7 pg (28-32); MEAN CORPUSCULAR HGB CONC 32.2 g/dL (31-35); MEAN CORPUSCULAR VOLUME 92.4 fL (81-99); MONOCYTES # (AUTO) 1.3 (0.2-0.8); MONOCYTES % 10.3 % (4.4-11.3); NEUTROPHILS # (AUTO) 8.5 (2.1-6.9); NEUTROPHILS % 69.2 % (38.7-80.0); PLATELET COUNT 362 x10e3/uL (140-360); RED BLOOD COUNT 2.76 x10e6/uL (4.3-5.7); RED CELL DISTRIBUTION WIDTH 15.9 % (11.7-14.4)
[2020-09-03 05:07] LABS: INR 1.05; PROTHROMBIN TIME 14.2 seconds (11.9-14.5)
[2020-09-03 05:15] LABS: ALBUMIN/GLOBULIN RATIO 0.5 (0.8-2.0); ANION GAP 23.2 mmol/L (8-16); CALCIUM 7.2 mg/dL (8.4-10.2); CREATININE, SERUM 6.68 mg/dL (0.72-1.25); POTASSIUM 5.2 mmol/L (3.5-5.1)
[2020-09-03] MEDS: METOPROLOL TARTRATE 25 MG TAB PO SCH ×4 (06:00→18:18)
--- NOTE | 2020-09-03 07:13 | NUR ---
BEDSIDE REPORT GIVEN To RN. SAFETY MAINTAINED
[2020-09-03] MEDS: DEXMEDETOMIDINE 200MCG/NS 50ML 50 ML IV PRN ×2 (08:10→18:00)
--- NOTE | 2020-09-03 08:33 | Diagnostic Imaging Report ---
X-ray chest frontal view History: Respiratory failure Comparison: 09/02/2020 Findings: Lines and tubes: The endotracheal tube is approximately 6.5 cm above the leona. It can be advanced approximately 1.5-2 cm. A nasogastric tube is seen coursing on the expected path of the tip is excluded. A right IJ temporary dialysis catheter is seen with the tip overlying SVC. These are not changed significantly. Central airways: Unremarkable Cardiac silhouette: Unremarkable Mediastinal silhouettes: No change Pleura: Likely layering bilateral pleural effusions, right more than left causing diffuse opacity. Diaphragms: Unremarkable Lungs: Diffuse bilateral increase in opacity with pattern of airspace and interstitial disease both, worsened compared with the previous exam. Skeletal structures: No acute change Extrathoracic soft tissues: No acute change Impression: Possible slight worsening of the pulmonary infiltrates. ET tube may be advanced approximately 1.5-2 cm. Signed by: Carl Morgan MD on 09/03/2020 8:30 AM
[2020-09-03] MEDS: BENZTROPINE MESYLATE 1 MG TAB PO SCH ×2 (08:46→18:18)
[2020-09-03] MEDS: LEVETIRACETAM 500MG/5ML VIAL 500 MG in SODIUM CHLORIDE 0.9% 100 ML 100 ML IV SCH (08:46)
[2020-09-03] MEDS: DONEPEZIL HCL 5 MG TAB PO SCH (08:46)
--- NOTE | 2020-09-03 09:30 | NUR ---
no substantial neurological changes 99.6 81 160/74 difficult to arouse dolls eyes intact but limited by corneal edema corneal strongly responsive pupils 4mm and reactive bilaterally no nuchal rigidity rrr tachypnic mechanical vent grimace to nox stim a/p severe diffuse encephaloathy- no focal brainstem injury brainstem exam is symmetric and intact repeat EEG done- improving EEG on AED can initiate acetylcholinesterase inhibitor to improve neurological responsiveness discussed with at length start low dose pramipexole monitor for fever, degin to decrease keppra repeat EEG
[2020-09-03] MEDS: IRON SUCROSE 100 MG in SODIUM CHLORIDE 0.9% 100 ML 100 ML IV SCH (09:32)
--- NOTE | 2020-09-03 11:00 | NUR ---
Patient to Radiology for procedure at this time with this nurse in attendance. Tolerated well, vital signs stable.
[2020-09-03] MEDS ORDERED: MIDAZOLAM HCL 2 MG/2 ML VIAL ONE (11:04)
[2020-09-03] MEDS ORDERED: FENTANYL CITRATE/PF 100MCG/2 ML INJ ONE (11:04)
--- NOTE | 2020-09-03 11:45 | NUR ---
Patient returned to unit from procedure, with this nurse in attendance. Patient tolerated procedure well, vital signs stable, orders received and carried out from Radiologist. No bruising or bleeding noted from puncture site.
--- NOTE | 2020-09-03 13:56 | Progress Note ---
DATE: 09/03/2020 HISTORY OF PRESENT ILLNESS: Francisco Simmons is a 64-year-old male referred to me for evaluation of thrombocytopenia. The patient's CBC today shows a hemoglobin of 8.2, white count 60716, and platelets of 362,000. Microbiology; the blood cultures reported to have no growth. The patient's imaging still shows the patient to be intubated. The quantitation of immunoglobulins was addressed by me. However, these are still pending. The patient continues to receive: 1. Ceftriaxone. 2. Iron. 3. Keppra. 4. Cogentin. 5. Digoxin. 6. Diltiazem. 7. Aricept. 8. Trandate. 9. Mannitol. 10. Metoprolol. Has to be noted that there is no indication of this patient being an iron deficiency. MCV is normal at 92.4, MCHC is normal at 32.2, RDW slightly high at 15.9. This is anemia of chronic disease because of the chronic renal failure as well as anemia of phlebotomy. MD MAHOGANY Patterson/BECKL /[id number]
--- NOTE | 2020-09-03 14:07 | Progress Note ---
DATE: 09/03/2020 Renal Progress Note SUBJECTIVE: The patient underwent a left kidney biopsy earlier this morning. The patient's condition is same. He remains intubated on a ventilator. PHYSICAL EXAMINATION: VITAL SIGNS: Blood pressure 152/75, pulse 85, respirations 27. The nurse reports has had, maybe, 20 to 30 mL of urine output in the shift. GENERAL: The patient is intubated. He is on a ventilator. HEENT: The patient has a Franklyn catheter in the right neck area. No increased JVD. CARDIOVASCULAR: Regular rate and rhythm. LUNGS: Decreased breath sounds at bases bilaterally. ABDOMEN: Positive bowel sounds. Nontender, nondistended. EXTREMITIES: No significant edema. The patient has slight edema of the feet. He has some slight cyanosis of some toes. LABORATORY RESULTS: Hemoglobin and hematocrit are 8.2 and 25.5 respectively. Sodium 140, potassium 5.2, chloride 103, bicarbonate 19. BUN and creatinine 87 and 6.6 respectively. Calcium 7.2. IMPRESSION AND PLAN: 1. Acute kidney injury. 2. Respiratory failure. 3. Shock, resolved. PLAN: The patient underwent a kidney biopsy today. The results have been sent hopefully early next week, we will have some results. The patient is going to be dialyzed today. We will dialyze the patient by the Franklyn catheter with 2 potassium, 3 to 3.5 calcium bath, we will do 4 hours, we will ultrafilter probably only 750 mL. The patient has a Franklyn catheter, it looks like he has been going to be dialysis dependent. I will have this switched over to a tunneled dialysis catheter early next week also. The patient's prognosis remains very guarded. Ather MD MARC Lewis/MODL /[id number]
--- NOTE | 2020-09-03 14:59 | Diagnostic Imaging Report ---
US Guided core biopsy right renal cortex. History: Renal failure Communications Associate: Carl Morgan MD. Enrichment Specialist: None. Modality: Ultrasound Sedation: No sedation. Vital signs were monitored throughout the procedure by a dedicated RN under direct supervision of Dr. Morgan, and remained stable. Physician intra-service sedation time was not applicable. Estimated blood loss: < 5 cc. Technique: Informed written consent was obtained. Discussion of risks, benefits, and alternatives were made with the patient's next of kin. The patient was intubated and sedated. The patient expressed understanding and agreed to proceed. A universal timeout was performed prior to starting the procedure. Standard sterile precautions were utilized. A preliminary ultrasonography was performed to assess the target and determine a safe access site. It showed accessible right renal cortex. Pertinent ultrasound images were secured to the PACS for documentation. A subcostal access site was selected and sterilely prepped and draped. Local anesthesia with 1% lidocaine was administered. A dermatotomy was performed. Using aseptic precautions, under real-time ultrasonographic guidance, the target lesion was accessed with a 17-gauge guide. Using an 18-gauge, multiple cores of the targeted tissue were performed. The specimen was submitted in formalin and cell suspension for further processing. At the end of the procedure, an aseptic dressing applied. The patient tolerated the procedure well. After recovery, the patient was discharged from the department in stable condition. Complications: None immediate. Specimen: 5 passes with 3 good cores Impression: Successful ultrasound-guided core biopsy of right renal cortex as described. Thank you for the opportunity to assist in the care of your patient. Signed by: Carl Morgan MD on 09/03/2020 2:56 PM
--- NOTE | 2020-09-03 15:49 | NUR ---
Nutrition Intervention Note RD Recommendation(s) for Physician: -Resume Vital AF 1.2 @ goal rate of 70 mL/hr when appropriate (provides 2016 kcal, 126 g protein, and 1363 mL water) -Water/fluid management per MD The patient meets criteria for MODERATE protein-calorie malnutrition. Plan of Care: RD following, monitoring for tolerance and adequacy, tube feed recommendation Nutrition reason for involvement: follow up RD Assessment 09/03: Follow up. Chart reviewed. Pt is a little bit more aroused per MD note. TF is off at this time due to procedure (kidney biopsy) but goal rate of 70 mL/hr was reached yesterday. Pt is still receiving dialysis. Recommend resuming tube feeding when appropriate. Will continue to monitor. 08/30: Follow up. Pt remains intubated in the ICU. Pt is off sedation, but has decreased responsiveness. Pt is still receiving dialysis as needed and is off pressors. Pt is tolerating TF @ 40 mL/hr. Recommend increasing towards goal as appropriate. Will continue to monitor (08/25/20) Pt is a 64 year old male admitted with severe sepsis. Pt is currently intubated/sedated and is on pressors. Pt received dialysis yesterday due to acute renal failure. Tube feedings were started, but tube feeding was off this morning due to procedure per RN. Unable to obtain nutrition history from pt at this time. Recommendations provided. Will continue to monitor. Principal Problems/Diagnoses: severe sepsis PMH: HTN, afib GI: soft/large/round abdomen, last recorded BM 09/01 x 2 Skin: elbow and sacrum suspected deep tissue injury Labs: 09/03: Na 140, K 5.2, BUN 87, Cr 6.68, Glu 88, Ca 7.2, AST 38, ALT 55 (08/30) Na 139, K 5.2, BUN 89, Cr 7.01, Glu 109, Ca 7.1, Total Bili 1.3, AST 144, ALT 144 (08/25) Na 138, K 4.0, BUN 88, Cr 6.73, Glu 119, Ca 7.2, Total Bili 8.0, AST 62 Meds: IV iron, dexmedetomidine, metoprolol, mannitol Ht: 71 in Wt: 265 lbs (09/03) 225 lbs (08/30) 199.38 lbs (08/25) 189 lbs (08/24) Suspect fluid related or weight error BMI: 26.4 kg/m2 using wt of 189 lbs IBW: 172 lbs Malnutrition Evaluation (08/30/20) The patient meets criteria for MODERATE protein-calorie malnutrition. Energy intake: <50% of estimated energy requirements for >5 days Weight loss: Weight gain during admission Fat loss: unable to evaluate Muscle loss: unable to evaluate Supporting Evidence: Fluid accumulation: 1 to 2+ leg edema per MD note (08/30) Functional Status: not assessed Nutrition Prescription (Diet Order): NPO TF off at this time due to procedure Estimated Nutritional Needs: 5707-7625 calories/day (20-25 kcal/kg CBW): using wt of 189 lbs 129- 172 g protein/day (1.5-2 g pro/kg CBW): using wt of 189 lbs Diet Adequacy: Not meeting calorie needs, Not meeting protein needs Tolerance: previously tolerating TF Diet Education Needs Assessment: Diet education not indicated; pt is intubated Nutrition Care Level: moderate Nutrition Diagnosis: Inadequate oral intake related to respiratory failure/mechanical ventilation as evidenced by need for enteral nutrition. Goal: Patient will meet 75-100% of estimated needs by follow up Progress: progressing Interventions: -Composition, Rate, Route Monitoring/Evaluation: -Total energy intake, Total protein intake, Formula/Solution, Weight change Signed: Vi Lua RD, LD
--- NOTE | 2020-09-03 15:58 | NUR ---
Per Haylie with [facility], they are waiting on a discharge and should have a bed once that happens. MOT was initiated and placed with packet on chart.
--- NOTE | 2020-09-03 16:29 | NUR ---
LONG-TERM ACUTE CARE DISCHARGE INFORMATION PATIENT HAS BEEN ACCEPTED TO: [address] [address] ACCEPTING PHYSICIAN INDUSTRIAL: Emir Harley, TEACHER [employer] ACCEPTING MD: Dr. Soni ROOM: 107 AFTER 7pm NURSE CALL REPORT TO: [phone] THE FOLLOWING DOCUMENTS MUST ACCOMPANY PATIENT FOR TRANSFER: copy of chart MOT INFO RECEIVED FROM: Haylie Prater PHYSICIANS ORDER/RECONCILED MED LIST: to be obtained by bedside RN [id number] DNR: n/a MOT completed and placed with pt's packet on chart. Rochelle, discharge specialist and Karlie, RN notified of acceptance.
--- NOTE | 2020-09-03 16:53 | Progress Note ---
DATE: SUBJECTIVE: The patient is afebrile. The patient went for a kidney biopsy today. The patient is now completing dialysis. The patient is more responsive and opens his eyes to verbal stimuli. PHYSICAL EXAMINATION: VITAL SIGNS: The blood pressure is 125/72, saturation is 100% and the pulse is 75. Respiratory rate is 16. HEENT: Shows no facial swelling or erythema. There is an oral endotracheal tube. CARDIAC: Reveals regular rate and rhythm with normal S1, S2. LUNGS: Auscultation of lungs shows decreased breath sounds at the bases. ABDOMEN: Soft, nontender. There is no rebound or guarding. EXTREMITIES: Shows no leg edema or calf tenderness. There is no cyanosis or clubbing. SKIN: Shows no rashes. NEUROLOGICAL: Shows no focal abnormalities. LABORATORY DATA: White blood cell count is 12.3, hemoglobin is 8.2, and the platelet count is 362. The BUN to creatinine ratio is 87 to 6.68, and the carbon dioxide is 18. The potassium is 5.2 and the albumin is 2. IMPRESSION: 1. Severe sepsis with aspiration pneumonia, present on admission. 2. Acute renal failure. 3. Severe metabolic encephalopathy. 4. Ischemic hepatitis secondary to shock. 5. Anemia. 6. Severe gastroenteritis. PLAN: 1. Continue to monitor mental status. The patient is almost ready for extubation. Hopefully, we could extubate the patient tomorrow, provided he is following commands. 2. Await results of kidney biopsy. 3. Continue enteral feedings. 4. Complete antibiotics. Edmond Benitez MD [facility]/MODL /[id number]
--- NOTE | 2020-09-03 17:20 | NUR ---
INFECTIOUS DISEASE PROGRESS NOTE DR. LORA SO SUBJECTIVE: Mr. Simmons remains in intensive care unit. The patient is intubated, still noncommunicative. The plan for him to go to rehab or LTAC. Events noted. LABORATORY DATA: PER CHART MEDICATION LIST: PER CHART . PHYSICAL EXAMINATION: GENERAL: non communicative HEENT: critically ill in ICU, intubated, sedation is off, now alert NECK: Supple. no JVD CHEST: Few crackles. symmetric expansion HEART: S1 and S2. no s3, s4 ABDOMEN: Soft. Bowel sounds present. EXTREMITIES: No edema. moves all SKIN: No rash. IMPRESSION: 1. Sepsis on admission. 2. Presumptive encephalitis. Follow up with the cultures. 3. Possible aspiration pneumonia. 4. Acute renal failure. 5. Respiratory failure. 6. Hepatosplenomegaly. 7. Thrombocytopenia due to sepsis. 8. Elevated LFT. Elevated bilirubin, now decreased 9. Rash PLAN: mentation improved, now following commands Continue the same for now weaning attempts from the vent s/p kidney biopsy today LTAC plans, will continue to follow Aline Christy MSN, DATA INTEGRITY SPECIALIST, AGACNP-BC Lora So M.D.
--- NOTE | 2020-09-03 19:27 | NUR ---
Dr. Gypsy Soni's office contacted for transfer order. Dr. Mosquera paged and will return call.
--- NOTE | 2020-09-03 20:57 | NUR ---
Report called to ADELIA Julien at [facility] by this RN. Stephanie updated and given new patient information as well as consent to transfer via EMS to [facility]. EMS notified and are en route. Pt VS stable to transfer. dispatch supervisor Diane notified and transfer packed reviewed.
[2020-09-03] MEDS ORDERED: LEVETIRACETAM 500MG/5ML VIAL 250 MG in SODIUM CHLORIDE 0.9% 100 ML 100 ML IV SCH (21:00)
[2020-09-04] MEDS ORDERED: PRAMIPEXOLE DIHYDROCHLORIDE 0.25 MG TAB PO SCH (09:00)
--- NOTE | 2020-09-04 11:15 | Electroencephalogram ---
DATE OF STUDY: REQUESTING PHYSICIAN: STUDY: 30-minute EEG. INDICATION: EEG done to evaluate for encephalopathy after febrile illness. EEG DATA: Using 10-20 international electrode placement system read in bipolar montages. EEG data, posterior dominant rhythm is of 6-7 Hz rhythmic, sinusoidal, waxing and waning. There is intermittent beta activity noted . No seizures captured in this study. No sleep changes or sleep capturing in this study. EEG INTERPRETATION: This EEG is abnormal level 3-4 month history of encephalopathy without evidence of epilepsy or seizure. . LYLY ETIENNE MD RR/MODL /[id number]
--- NOTE | 2020-09-08 02:22 | NUR ---
SPOKE TO FAB WITH SIZE [employer]. ARRANGED FOR BED EQUAL OPPORTUNITY COUNSELOR. PATIENT WAS DC' D AROUND THE AND ANOTHER PATIENT BEGAN TO USE TO SAME SIZE [employer] BED. Pulselocker [employer] MADE AWARE. CONFIRMATION # [id number].
== END 2020-09-03 21:30 | DRG 870 ==
LOC: ER 09:58 → ERHOLD 11:27 → ICU 12:53
PROC: 30243R1 Transfusion of Nonautologous Platelets into Central Vein, Percutaneous Approach (ICD-10-PCS; 2020-08-23)
PROC: 5A1955Z Respiratory Ventilation, Greater than 96 Consecutive Hours (ICD-10-PCS; principal; 2020-08-24)
PROC: 0BH18EZ Insertion of Endotracheal Airway into Trachea, Via Natural or Artificial Opening Endoscopic (ICD-10-PCS; 2020-08-24)
PROC: 5A1D70Z Performance of Urinary Filtration, Intermittent, Less than 6 Hours Per Day (ICD-10-PCS; 2020-08-24)
PROC: 03HB33Z Insertion of Infusion Device into Right Radial Artery, Percutaneous Approach (ICD-10-PCS; 2020-08-25)
PROC: 009U3ZX Drainage of Spinal Canal, Percutaneous Approach, Diagnostic (ICD-10-PCS; 2020-08-25)
PROC: 0TB03ZX Excision of Right Kidney, Percutaneous Approach, Diagnostic (ICD-10-PCS; 2020-09-03)
DX: A41.9 Sepsis, unspecified organism (principal); R65.21 Severe sepsis with septic shock; J69.0 Pneumonitis due to inhalation of food and vomit; G93.41 Metabolic encephalopathy; N17.0 Acute kidney failure with tubular necrosis; K72.00 Acute and subacute hepatic failure without coma; J96.00 Acute respiratory failure, unspecified whether with hypoxia or hypercapnia; E87.2 Acidosis; E87.3 Alkalosis; Z11.59 Encounter for screening for other viral diseases; I10 Essential (primary) hypertension; D69.6 Thrombocytopenia, unspecified; E86.1 Hypovolemia; K52.9 Noninfective gastroenteritis and colitis, unspecified; K75.89 Other specified inflammatory liver diseases; R56.9 Unspecified convulsions; E86.0 Dehydration; I48.91 Unspecified atrial fibrillation; Z79.01 Long term (current) use of anticoagulants; R16.0 Hepatomegaly, not elsewhere classified; E87.5 Hyperkalemia
CPT/HCPCS: 36415; 36600; 50200; 62328; 70450; 70551; 71045; 71250; 72100; 74018; 74176; 74470; 76705; 76770; 76942; 80048; 80053; 80162; 81001; 82140; 82150; 82248; 82550; 82553; 82607; 82728; 82746; 82784; 82805; 82945; 82948; 83520; 83540; 83605; 83615; 83690; 83880; 84080; 84145; 84155; 84157; 84466; 84484; 85025; 85045; 85379; 85384; 85610; 85651; 86021; 86039; 86140; 86160; 86225; 86592; 86611; 86644; 86645; 86704; 86706; 86757; 86777; 86778; 86789; 86803; 86850; 86900; 87040; 87070; 87205; 87252; 87340; 87390; 89051; 90962; 92950; 93005; 93306; 94002; 94003; 94660; 95812; 99152; 99251; 99284; G0433; G0435; J0456; J0610; J0692; J0696; J1160; J1450; J1644; J1756; J1940; J2001; J2060; J2150; J2250; J3010; J3370; J7030; J7040; J7050; J7070; J7121; P9034; P9047

== ENCOUNTER 2022-08-05 09:37 | Inpatient (IN) | payer BC, MEDICARE ==
[~2022-08-05] VITALS: Ht 180.3 cm; Wt 72.6 kg
[2022-08-05] MEDS ORDERED: SODIUM CHLORIDE 0.9% 100 ML ONE (10:13)
[2022-08-05] MEDS ORDERED: Vancomycin IV 1 GM VIAL ONE (10:14)
[2022-08-05] MEDS ORDERED: PIPERACILLIN/TAZOBACTAM 3.375 GM VIAL ONE (10:14)
[2022-08-05] MEDS ORDERED: SODIUM CHLORIDE 0.9% 250ML 250 ML ONE (10:14)
[2022-08-05] MEDS ORDERED: SODIUM CHLORIDE 0.9% 1000ML 1,000 ML IV STA (10:18)
[2022-08-05] MEDS ORDERED: Vancomycin IV 1 GM in SODIUM CHLORIDE 0.9% 250ML 250 ML IV ONE (10:30)
[2022-08-05] MEDS ORDERED: ONDANSETRON HCL INJ 2MG/ML 2ML 2 MG/ML VIAL IV PRN (10:30)
[2022-08-05] MEDS ORDERED: Morphine 2mg Syringe 2 MG/ML SYR IV PRN (10:30)
[2022-08-05] MEDS ORDERED: SODIUM CHLORIDE 0.9% 1000ML 1,000 ML ONE (10:41)
[2022-08-05] MEDS ORDERED: Morphine 4mg INJECTION 4 MG/ML INJ ONE (11:08)
[2022-08-05] MEDS ORDERED: ONDANSETRON HCL INJ 2MG/ML 2ML 2 MG/ML VIAL ONE (11:08)
[2022-08-05 13:00] VITALS: BP 157/86
[2022-08-05] MEDS ORDERED: Vancomycin IV 1 GM in SODIUM CHLORIDE 0.9% 250ML 250 ML IV SCH (14:15)
[2022-08-05] MEDS ORDERED: LIPITOR10 MG PO (14:45)
[2022-08-05] MEDS ORDERED: FLONASE ALLERG9.9 ML INH (14:45)
[2022-08-05] MEDS ORDERED: RAMELTEON8 MG PO (14:45)
[2022-08-05] MEDS ORDERED: NAMENDA10 MG PO (14:45)
[2022-08-05] MEDS ORDERED: PROTONIX20 MG PO (14:45)
[2022-08-05] MEDS ORDERED: AMIODARONE HCL200 MG PO (14:45)
[2022-08-05] MEDS ORDERED: FLOMAX0.4 MG PO (14:45)
[2022-08-05] MEDS ORDERED: ELIQUIS5 MG PO (14:45)
[2022-08-05] MEDS ORDERED: OMEGA-31000 MG PO (14:45)
[2022-08-05] MEDS ORDERED: DAILY VITAMIN1 EAC2 (14:45)
[2022-08-05] MEDS ORDERED: CENTRUM ADULTS1 EACH PO (14:45)
[2022-08-05] MEDS ORDERED: ACETAMINOPHEN325 M1 PO (14:45)
[2022-08-05] MEDS: DEXTROSE 5% IV SCH ×2 (15:00→21:41)
[2022-08-05] MEDS: CLINDAMYCIN IV SCH ×2 (15:00→21:41)
[2022-08-05] MEDS ORDERED: ACETAMINOPHEN 325 MG TAB PO PRN (15:00)
[2022-08-05] MEDS: HYDROCODONE/APAP 7.5MG-325MG 1 EA TAB PO PRN ×2 (15:30→21:43)
[2022-08-05] MEDS ORDERED: RAMELTEON 8 MG PO PRN (16:00)
[2022-08-05 16:11] VITALS: BP 140/82
[2022-08-05 16:27] VITALS: BP 157/86
[2022-08-05] MEDS: FLUTICASONE PROPIONATE NASAL SPRAY NS SCH (17:00)
[2022-08-05] MEDS: MEMANTINE 10 MG TAB PO SCH (17:01)
[2022-08-05] MEDS: APIXABAN 5 MG TABLET PO SCH (17:01)
[2022-08-05] MEDS: SODIUM CHLORIDE 0.9% 1000ML 1,000 ML IV SCH ×2 (17:02→21:41)
[2022-08-05 20:00] VITALS: BP 138/81
[2022-08-05] MEDS: ATORVASTATIN 10 MG TAB PO SCH (21:41)
[2022-08-05] MEDS: TAMSULOSIN HCL 0.4 MG CAP PO SCH (21:43)
[2022-08-06] VITALS (7 sets, daily range): BP systolic 134–142; BP diastolic 78–88
[2022-08-06] MEDS: SODIUM CHLORIDE 0.9% 1000ML 1,000 ML IV SCH (04:09)
[2022-08-06] MEDS: LEVOTHYROXINE SODIUM 25 MCG TABLET PO SCH (04:51)
[2022-08-06] MEDS: DEXTROSE 5% IV SCH ×3 (04:55→21:58)
[2022-08-06] MEDS: CLINDAMYCIN IV SCH ×3 (04:55→21:58)
[2022-08-06 06:14] LABS: ALBUMIN 3.4 g/dL (3.5-5.0); ANION GAP 18.2 mmol/L (8-16); CALCIUM 9.2 mg/dL (8.4-10.2); CREATININE, SERUM 0.86 mg/dL (0.72-1.25); POTASSIUM 4.2 mmol/L (3.5-5.1)
[2022-08-06] MEDS: FLUTICASONE PROPIONATE NASAL SPRAY NS SCH (09:00)
[2022-08-06] MEDS: APIXABAN 5 MG TABLET PO SCH ×2 (09:40→16:42)
[2022-08-06] MEDS: PANTOPRAZOLE SOD 40 MG TABEC PO SCH (09:40)
[2022-08-06] MEDS: OMEGA 3 POLYUNSAT FATTY ACIDS 1000 MG SOFTGEL PO SCH (09:40)
[2022-08-06] MEDS: MEMANTINE 10 MG TAB PO SCH ×2 (09:40→16:43)
[2022-08-06] MEDS: AMIODARONE HCL 200 MG TAB PO SCH (09:40)
[2022-08-06] MEDS: MULTIVITAMINS/MINERALS TAB PO SCH (09:40)
[2022-08-06 10:42] LABS: BASOPHILS % 0.4 % (0.0-1.0); EOSINOPHILS # (AUTO) 0.3 (0.0-0.4); EOSINOPHILS % 3.4 % (0.0-6.0); HEMATOCRIT 45.7 % (38.2-49.6); HEMOGLOBIN 14.8 g/dL (14.0-18.0); LYMPHOCYTES # (AUTO) 1.6 (1.0-3.2); MEAN CORPUSCULAR HEMOGLOBIN 30.2 pg (28-32); MEAN CORPUSCULAR HGB CONC 32.4 g/dL (31-35); MEAN CORPUSCULAR VOLUME 93.3 fL (81-99); MONOCYTES # (AUTO) 1.2 (0.2-0.8); MONOCYTES % 12.5 % (4.4-11.3); NEUTROPHILS # (AUTO) 6.4 (2.1-6.9); NEUTROPHILS % 66.5 % (38.7-80.0); PLATELET COUNT 204 x10e3/uL (140-360); RED CELL DISTRIBUTION WIDTH 12.7 % (11.7-14.4)
[2022-08-06] MEDS ORDERED: FLUTICASONE PROPIONATE NASAL SPRAY NS PRN (16:00)
[2022-08-06] MEDS: TAMSULOSIN HCL 0.4 MG CAP PO SCH (21:58)
[2022-08-06] MEDS: ATORVASTATIN 10 MG TAB PO SCH (21:58)
[2022-08-07] VITALS (7 sets, daily range): BP systolic 114–148; BP diastolic 65–82
[2022-08-07] MEDS: CLINDAMYCIN IV SCH (05:00)
[2022-08-07] MEDS: DEXTROSE 5% IV SCH (05:00)
[2022-08-07] MEDS: LEVOTHYROXINE SODIUM 25 MCG TABLET PO SCH (05:03)
[2022-08-07 06:17] LABS: BASOPHILS # (AUTO) 0.1 (0.0-0.1); BASOPHILS % 0.7 % (0.0-1.0); EOSINOPHILS # (AUTO) 0.3 (0.0-0.4); EOSINOPHILS % 2.9 % (0.0-6.0); HEMOGLOBIN 14.1 g/dL (14.0-18.0); LYMPHOCYTES # (AUTO) 1.3 (1.0-3.2); LYMPHOCYTES % 12.6 % (18.0-39.1); MEAN CORPUSCULAR HEMOGLOBIN 29.9 pg (28-32); MEAN CORPUSCULAR HGB CONC 34.4 g/dL (31-35); MONOCYTES # (AUTO) 1.1 (0.2-0.8); MONOCYTES % 10.6 % (4.4-11.3); NEUTROPHILS # (AUTO) 7.7 (2.1-6.9); NEUTROPHILS % 72.7 % (38.7-80.0); PLATELET COUNT 224 x10e3/uL (140-360); RED BLOOD COUNT 4.71 x10e6/uL (4.3-5.7); RED CELL DISTRIBUTION WIDTH 12.4 % (11.7-14.4)
[2022-08-07 06:49] LABS: ANION GAP 19.9 mmol/L (8-16); CALCIUM 9.2 mg/dL (8.4-10.2); CREATININE, SERUM 0.83 mg/dL (0.72-1.25); POTASSIUM 3.9 mmol/L (3.5-5.1)
[2022-08-07] MEDS: HYDROCODONE/APAP 7.5MG-325MG 1 EA TAB PO PRN ×3 (07:13→21:07)
[2022-08-07] MEDS ORDERED: CLINDAMYCIN HC300 MG PO (08:27)
[2022-08-07] MEDS ORDERED: CEFUROXIME500 MG PO (08:27)
[2022-08-07] MEDS ORDERED: HYDROCODON-ACE1 EA11 PO (08:56)
[2022-08-07] MEDS: MEMANTINE 10 MG TAB PO SCH ×2 (08:58→16:46)
[2022-08-07] MEDS: TAMSULOSIN HCL 0.4 MG CAP PO SCH (08:58)
[2022-08-07] MEDS: APIXABAN 5 MG TABLET PO SCH ×2 (08:59→16:46)
[2022-08-07] MEDS: MULTIVITAMINS/MINERALS TAB PO SCH (08:59)
[2022-08-07] MEDS: PANTOPRAZOLE SOD 40 MG TABEC PO SCH (08:59)
[2022-08-07] MEDS: AMIODARONE HCL 200 MG TAB PO SCH (08:59)
[2022-08-07] MEDS: OMEGA 3 POLYUNSAT FATTY ACIDS 1000 MG SOFTGEL PO SCH (08:59)
[2022-08-07] MEDS ORDERED: ONDANSETRON HCL 4 MG ORAL DISINTEGRATING TAB PO PRN (12:45)
[2022-08-07] MEDS ORDERED: CLINDAMYCIN 600MG / 50ML 50 ML IV SCH (14:00)
[2022-08-07] MEDS: CLINDAMYCIN HCL 150 MG CAP PO SCH ×2 (14:32→18:24)
[2022-08-07] MEDS: ATORVASTATIN 40 MG TAB PO SCH (21:07)
[2022-08-08] VITALS (8 sets, daily range): BP systolic 123–144; BP diastolic 73–91
[2022-08-08] MEDS: CLINDAMYCIN HCL 150 MG CAP PO SCH ×5 (00:13→23:04)
[2022-08-08] MEDS: LEVOTHYROXINE SODIUM 25 MCG TABLET PO SCH (05:39)
[2022-08-08 08:04] LABS: BASOPHILS # (AUTO) 0.1 (0.0-0.1); BASOPHILS % 0.6 % (0.0-1.0); EOSINOPHILS # (AUTO) 0.3 (0.0-0.4); EOSINOPHILS % 2.3 % (0.0-6.0); HEMATOCRIT 43.3 % (38.2-49.6); HEMOGLOBIN 14.4 g/dL (14.0-18.0); LYMPHOCYTES # (AUTO) 1.2 (1.0-3.2); LYMPHOCYTES % 10.8 % (18.0-39.1); MEAN CORPUSCULAR HEMOGLOBIN 30.2 pg (28-32); MEAN CORPUSCULAR HGB CONC 33.3 g/dL (31-35); MEAN CORPUSCULAR VOLUME 90.8 fL (81-99); MONOCYTES % 9.6 % (4.4-11.3); NEUTROPHILS # (AUTO) 8.3 (2.1-6.9); NEUTROPHILS % 76.4 % (38.7-80.0); PLATELET COUNT 266 x10e3/uL (140-360); RED BLOOD COUNT 4.77 x10e6/uL (4.3-5.7); RED CELL DISTRIBUTION WIDTH 12.3 % (11.7-14.4)
[2022-08-08 08:25] LABS: ANION GAP 16.1 mmol/L (8-16); CALCIUM 9.7 mg/dL (8.4-10.2); CREATININE, SERUM 0.95 mg/dL (0.72-1.25); POTASSIUM 4.1 mmol/L (3.5-5.1)
[2022-08-08] MEDS: MEMANTINE 10 MG TAB PO SCH ×2 (08:32→17:31)
[2022-08-08] MEDS: TAMSULOSIN HCL 0.4 MG CAP PO SCH (08:32)
[2022-08-08] MEDS: AMIODARONE HCL 200 MG TAB PO SCH (08:32)
[2022-08-08] MEDS: APIXABAN 5 MG TABLET PO SCH (08:32)
[2022-08-08] MEDS: OMEGA 3 POLYUNSAT FATTY ACIDS 1000 MG SOFTGEL PO SCH (08:32)
[2022-08-08] MEDS: PANTOPRAZOLE SOD 40 MG TABEC PO SCH (08:32)
[2022-08-08] MEDS: MULTIVITAMINS/MINERALS TAB PO SCH (08:32)
[2022-08-08] MEDS: HYDROCODONE/APAP 7.5MG-325MG 1 EA TAB PO PRN ×3 (08:41→23:10)
[2022-08-08] MEDS: ATORVASTATIN 40 MG TAB PO SCH (20:57)
[2022-08-09] VITALS (9 sets, daily range): BP systolic 136–168; BP diastolic 74–84
[2022-08-09] MEDS ORDERED: SODIUM CHLORIDE 0.9% 1000ML 1,000 ML IV SCH
[2022-08-09] MEDS: LEVOTHYROXINE SODIUM 25 MCG TABLET PO SCH (05:19)
[2022-08-09] MEDS: CLINDAMYCIN HCL 150 MG CAP PO SCH (05:19)
[2022-08-09] MEDS: OMEGA 3 POLYUNSAT FATTY ACIDS 1000 MG SOFTGEL PO SCH (09:00)
[2022-08-09] MEDS ORDERED: BUPIVACAINE 0.25% 30ML SDV ONE (11:13)
[2022-08-09] MEDS ORDERED: HYDROMORPHONE 0.2MG/ML-SOD CHL 30ML PCA SYRINGE IV PRN (11:30)
[2022-08-09] MEDS: SODIUM CHLORIDE 0.9% 1000ML 1,000 ML IV SCH (11:30)
[2022-08-09] MEDS ORDERED: ONDANSETRON HCL INJ 2MG/ML 2ML 2 MG/ML VIAL IV PRN (11:30)
[2022-08-09] MEDS ORDERED: NALOXONE HCL INJ 0.4 MG/ML AMP IV PRN (11:30)
[2022-08-09] MEDS ORDERED: HYDROMORPHONE 0.2MG/ML-SOD CHL 30ML PCA SYRINGE IV ONE (11:57)
[2022-08-09] MEDS ORDERED: PROPOFOL IV EMULSION 10 MG/ML 20 ML VIAL ONE ×2 (12:08→12:53)
[2022-08-09] MEDS ORDERED: DEXAMETHASONE SOD PHOS INJ 4 MG/ML SDV ONE (12:08)
[2022-08-09] MEDS ORDERED: LIDOCAINE HCL 2% LOCAL INJ 5 ML SDV VIAL INJ ONE ×2 (12:08→12:53)
[2022-08-09] MEDS ORDERED: SEVOFLURANE INHAL SOLN 250 ML PEN BTL ONE (12:08)
[2022-08-09] MEDS ORDERED: POVIDONE IODINE 0.05% 0.05 % ML PO ONE (12:08)
[2022-08-09] MEDS ORDERED: ONDANSETRON HCL INJ 2MG/ML 2ML 2 MG/ML VIAL ONE ×2 (12:08→12:10)
[2022-08-09] MEDS ORDERED: ACETAMINOPHEN 1000 MG/100 ML IV ONE (12:08)
[2022-08-09] MEDS ORDERED: EPHEDRINE SULFATE INJ 50 MG/ML VIAL ONE (12:08)
[2022-08-09] MEDS ORDERED: ACETAMINOPHEN 1000 MG/100 ML IV PRN (14:00)
[2022-08-09] MEDS: CLINDAMYCIN 600MG / 50ML 50 ML IV SCH ×2 (15:00→20:28)
[2022-08-09] MEDS: AMIODARONE HCL 200 MG TAB PO SCH (15:02)
[2022-08-09] MEDS: MEMANTINE 10 MG TAB PO SCH ×2 (15:02→16:23)
[2022-08-09] MEDS: PANTOPRAZOLE SOD 40 MG TABEC PO SCH (15:02)
[2022-08-09] MEDS: TAMSULOSIN HCL 0.4 MG CAP PO SCH (15:02)
[2022-08-09] MEDS: MULTIVITAMINS/MINERALS TAB PO SCH (15:02)
[2022-08-09] MEDS: ATORVASTATIN 40 MG TAB PO SCH (20:28)
[2022-08-10] VITALS (8 sets, daily range): BP systolic 104–143; BP diastolic 68–81
[2022-08-10] MEDS: SODIUM CHLORIDE 0.9% 1000ML 1,000 ML IV SCH ×3 (05:21→16:44)
[2022-08-10] MEDS: CLINDAMYCIN 600MG / 50ML 50 ML IV SCH ×3 (05:27→21:22)
[2022-08-10] MEDS: LEVOTHYROXINE SODIUM 25 MCG TABLET PO SCH (05:27)
[2022-08-10 05:44] LABS: BASOPHILS # (AUTO) 0.1 (0.0-0.1); BASOPHILS % 0.4 % (0.0-1.0); EOSINOPHILS # (AUTO) 0.1 (0.0-0.4); EOSINOPHILS % 0.5 % (0.0-6.0); HEMATOCRIT 41.8 % (38.2-49.6); HEMOGLOBIN 14.4 g/dL (14.0-18.0); LYMPHOCYTES # (AUTO) 1.2 (1.0-3.2); LYMPHOCYTES % 6.9 % (18.0-39.1); MEAN CORPUSCULAR HEMOGLOBIN 30.1 pg (28-32); MEAN CORPUSCULAR HGB CONC 34.4 g/dL (31-35); MEAN CORPUSCULAR VOLUME 87.3 fL (81-99); MONOCYTES # (AUTO) 1.4 (0.2-0.8); MONOCYTES % 8.3 % (4.4-11.3); NEUTROPHILS # (AUTO) 14.1 (2.1-6.9); NEUTROPHILS % 83.4 % (38.7-80.0); PLATELET COUNT 304 x10e3/uL (140-360); RED BLOOD COUNT 4.79 x10e6/uL (4.3-5.7); RED CELL DISTRIBUTION WIDTH 12.2 % (11.7-14.4)
[2022-08-10 06:21] LABS: ANION GAP 15.8 mmol/L (8-16); CALCIUM 9.8 mg/dL (8.4-10.2); CREATININE, SERUM 0.8 mg/dL (0.72-1.25); POTASSIUM 3.8 mmol/L (3.5-5.1)
[2022-08-10] MEDS: AMIODARONE HCL 200 MG TAB PO SCH (09:00)
[2022-08-10] MEDS: MEMANTINE 10 MG TAB PO SCH ×2 (09:01→16:43)
[2022-08-10] MEDS: MULTIVITAMINS/MINERALS TAB PO SCH (09:01)
[2022-08-10] MEDS: PANTOPRAZOLE SOD 40 MG TABEC PO SCH (09:02)
[2022-08-10] MEDS: TAMSULOSIN HCL 0.4 MG CAP PO SCH (09:02)
[2022-08-10] MEDS: OMEGA 3 POLYUNSAT FATTY ACIDS 1000 MG SOFTGEL PO SCH (09:02)
[2022-08-10] MEDS: ATORVASTATIN 40 MG TAB PO SCH (21:22)
[2022-08-11] VITALS (8 sets, daily range): BP systolic 104–147; BP diastolic 71–85
[2022-08-11] MEDS: CLINDAMYCIN 600MG / 50ML 50 ML IV SCH (05:22)
[2022-08-11] MEDS: SODIUM CHLORIDE 0.9% 1000ML 1,000 ML IV SCH ×3 (05:22→13:25)
[2022-08-11] MEDS: LEVOTHYROXINE SODIUM 25 MCG TABLET PO SCH (05:22)
[2022-08-11] MEDS: PANTOPRAZOLE SOD 40 MG TABEC PO SCH (08:00)
[2022-08-11] MEDS ORDERED: BISACODYL 10 MG SUPP PR PRN (08:30)
[2022-08-11 08:59] LABS: BASOPHILS % 0.3 % (0.0-1.0); EOSINOPHILS # (AUTO) 0.2 (0.0-0.4); EOSINOPHILS % 1.9 % (0.0-6.0); HEMOGLOBIN 13.6 g/dL (14.0-18.0); LYMPHOCYTES # (AUTO) 1.6 (1.0-3.2); MEAN CORPUSCULAR HEMOGLOBIN 29.8 pg (28-32); MEAN CORPUSCULAR HGB CONC 32.4 g/dL (31-35); MEAN CORPUSCULAR VOLUME 91.9 fL (81-99); NEUTROPHILS # (AUTO) 9.1 (2.1-6.9); NEUTROPHILS % 76.5 % (38.7-80.0); PLATELET COUNT 280 x10e3/uL (140-360); RED BLOOD COUNT 4.57 x10e6/uL (4.3-5.7); RED CELL DISTRIBUTION WIDTH 12.5 % (11.7-14.4)
[2022-08-11] MEDS: OMEGA 3 POLYUNSAT FATTY ACIDS 1000 MG SOFTGEL PO SCH (09:16)
[2022-08-11] MEDS: MEMANTINE 10 MG TAB PO SCH ×2 (09:16→17:01)
[2022-08-11] MEDS: TAMSULOSIN HCL 0.4 MG CAP PO SCH (09:16)
[2022-08-11] MEDS: MULTIVITAMINS/MINERALS TAB PO SCH (09:16)
[2022-08-11] MEDS: AMIODARONE HCL 200 MG TAB PO SCH (09:17)
[2022-08-11] MEDS: DOCUSATE SODIUM 100 MG CAP PO SCH (09:17)
[2022-08-11] MEDS: SENNOSIDES 8.6 MG TAB PO SCH (09:17)
[2022-08-11] MEDS: POLYETHYLENE GLYCOL 3350 17 GM PACK PO SCH (09:17)
[2022-08-11 09:28] LABS: ALBUMIN 3.2 g/dL (3.5-5.0); ALBUMIN/GLOBULIN RATIO 0.9 (0.8-2.0); ANION GAP 14.6 mmol/L (8-16); CALCIUM 9.2 mg/dL (8.4-10.2); CREATININE, SERUM 0.88 mg/dL (0.72-1.25); POTASSIUM 3.6 mmol/L (3.5-5.1)
[2022-08-11] MEDS: DAPTOMYCIN 500mg 10ML 500 MG in SODIUM CHLORIDE 0.9% 100 ML IV SCH (13:25)
[2022-08-11] MEDS: HYDROCODONE/APAP 7.5MG-325MG 1 EA TAB PO PRN ×2 (13:58→21:04)
[2022-08-11] MEDS: ATORVASTATIN 40 MG TAB PO SCH (21:04)
[2022-08-12] VITALS: BP 154/84
[2022-08-12 04:00] VITALS: BP 146/79
[2022-08-12] MEDS: LEVOTHYROXINE SODIUM 25 MCG TABLET PO SCH (05:52)
[2022-08-12] MEDS: HYDROCODONE/APAP 7.5MG-325MG 1 EA TAB PO PRN (06:00)
[2022-08-12] MEDS: PANTOPRAZOLE SOD 40 MG TABEC PO SCH (07:30)
[2022-08-12 08:00] VITALS: BP 130/80
[2022-08-12 08:29] VITALS: BP 130/80
[2022-08-12] MEDS ORDERED: APIXABAN 5 MG TABLET PO SCH (09:00)
[2022-08-12] MEDS ORDERED: LACTOBACILLUS ACIDOPHILUS CAPSULE PO SCH (09:00)
[2022-08-12] MEDS: SODIUM CHLORIDE 0.9% 1000ML 1,000 ML IV SCH (09:30)
[2022-08-12] MEDS: MULTIVITAMINS/MINERALS TAB PO SCH (09:30)
[2022-08-12] MEDS: SENNOSIDES 8.6 MG TAB PO SCH (09:32)
[2022-08-12] MEDS: POLYETHYLENE GLYCOL 3350 17 GM PACK PO SCH (09:32)
[2022-08-12] MEDS: DOCUSATE SODIUM 100 MG CAP PO SCH (09:33)
[2022-08-12] MEDS: TAMSULOSIN HCL 0.4 MG CAP PO SCH (09:33)
[2022-08-12] MEDS: OMEGA 3 POLYUNSAT FATTY ACIDS 1000 MG SOFTGEL PO SCH (09:33)
[2022-08-12] MEDS: MEMANTINE 10 MG TAB PO SCH (09:33)
[2022-08-12 09:38] VITALS: BP 130/80
[2022-08-12 10:44] LABS: BASOPHILS # (AUTO) 0.1 (0.0-0.1); BASOPHILS % 0.5 % (0.0-1.0); EOSINOPHILS # (AUTO) 0.3 (0.0-0.4); EOSINOPHILS % 2.3 % (0.0-6.0); HEMATOCRIT 42.3 % (38.2-49.6); HEMOGLOBIN 13.7 g/dL (14.0-18.0); LYMPHOCYTES # (AUTO) 1.6 (1.0-3.2); LYMPHOCYTES % 13.6 % (18.0-39.1); MEAN CORPUSCULAR HEMOGLOBIN 29.8 pg (28-32); MEAN CORPUSCULAR HGB CONC 32.4 g/dL (31-35); MEAN CORPUSCULAR VOLUME 92.2 fL (81-99); MONOCYTES # (AUTO) 1.2 (0.2-0.8); MONOCYTES % 10.8 % (4.4-11.3); NEUTROPHILS # (AUTO) 8.3 (2.1-6.9); NEUTROPHILS % 72.4 % (38.7-80.0); PLATELET COUNT 284 x10e3/uL (140-360); RED BLOOD COUNT 4.59 x10e6/uL (4.3-5.7); RED CELL DISTRIBUTION WIDTH 12.5 % (11.7-14.4)
[2022-08-12 11:03] LABS: ALBUMIN 3.3 g/dL (3.5-5.0); ALBUMIN/GLOBULIN RATIO 0.9 (0.8-2.0); ANION GAP 14.8 mmol/L (8-16); CALCIUM 9.5 mg/dL (8.4-10.2); CREATININE, SERUM 0.86 mg/dL (0.72-1.25); MAGNESIUM 1.9 MG/DL (1.3-2.1); POTASSIUM 3.8 mmol/L (3.5-5.1)
[2022-08-12] MEDS: DAPTOMYCIN 500mg 10ML 500 MG in SODIUM CHLORIDE 0.9% 100 ML IV SCH (11:06)
[2022-08-12 11:23] VITALS: BP 127/93
[2022-08-13] MEDS ORDERED: AMIODARONE HCL 200 MG TAB PO SCH (09:00)
== END 2022-08-12 12:30 | disposition home or self-care (01) | DRG 854 ==
LOC: FSED 10:04 → ERHOLD 10:33 → MED/SURG2 12:30
PROVIDERS: ADMIT Internal Medicine; ATTEND Internal Medicine
PROC: 3E03329 Introduction of Other Anti-infective into Peripheral Vein, Percutaneous Approach (ICD-10-PCS; 2022-08-05)
PROC: 02HV33Z Insertion of Infusion Device into Superior Vena Cava, Percutaneous Approach (ICD-10-PCS; 2022-08-08)
PROC: 0LB70ZZ Excision of Right Hand Tendon, Open Approach (ICD-10-PCS; 2022-08-09)
PROC: 0R9N0ZZ Drainage of Right Wrist Joint, Open Approach (ICD-10-PCS; principal; 2022-08-09 09:28)
DX: A41.9 Sepsis, unspecified organism (principal); E87.20 Acidosis, unspecified; M00.031 Staphylococcal arthritis, right wrist; M86.8X8 Other osteomyelitis, other site; L03.113 Cellulitis of right upper limb; I48.0 Paroxysmal atrial fibrillation; G31.84 Mild cognitive impairment of uncertain or unknown etiology; S61.451A Open bite of right hand, initial encounter; W55.01XA Bitten by cat, initial encounter; E03.9 Hypothyroidism, unspecified; E78.5 Hyperlipidemia, unspecified; K21.9 Gastro-esophageal reflux disease without esophagitis; I12.9 Hypertensive chronic kidney disease with stage 1 through stage 4 chronic kidney disease, or unspecified chronic kidney disease; R65.20 Severe sepsis without septic shock; B95.7 Other staphylococcus as the cause of diseases classified elsewhere; N18.2 Chronic kidney disease, stage 2 (mild); N40.0 Benign prostatic hyperplasia without lower urinary tract symptoms; Z88.8 Allergy status to other drugs, medicaments and biological substances; N28.9 Disorder of kidney and ureter, unspecified; Z83.2 Family history of diseases of the blood and blood-forming organs and certain disorders involving the immune mechanism; Z82.49 Family history of ischemic heart disease and other diseases of the circulatory system; Z20.822 Contact with and (suspected) exposure to COVID-19
CPT/HCPCS: 36415; 36569; 71045; 80048; 80053; 83605; 83735; 85025; 85651; 86140; 86850; 86900; 87040; 87071; 87075; 87205; 93005; 93306; 96361; 96374; 96376; 99284; J0692; J1100; J2001; J2270; J2405; J2543; J3370; J7030; J7050; Q0162

== ENCOUNTER 2022-09-06 10:58 | Outpatient (RCR) | payer MEDICARE ==
[~2022-09-06 10:58] MED LIST: ACETAMINOPHEN325 M1 PO; AMIODARONE HCL200 MG PO; CEFUROXIME500 MG PO; CENTRUM ADULTS1 EACH PO; CLINDAMYCIN HC300 MG PO; DAILY VITAMIN1 EAC2; ELIQUIS5 MG PO; FLOMAX0.4 MG PO; FLONASE ALLERG9.9 ML INH; HYDROCODON-ACE1 EA11 PO; LIPITOR10 MG PO; NAMENDA10 MG PO; OMEGA-31000 MG PO; PROTONIX20 MG PO; RAMELTEON8 MG PO
== END 2022-09-11 ==
LOC: OT 10:58
PROVIDERS: ATTEND Specialist
DX: M79.641 Pain in right hand (principal); M25.531 Pain in right wrist; M25.641 Stiffness of right hand, not elsewhere classified; M25.631 Stiffness of right wrist, not elsewhere classified; R53.1 Weakness

== ENCOUNTER 2022-10-06 11:00 | Outpatient (RCR) | payer MEDICARE | END 2022-10-11 | LOC: OT 11:00 | PROVIDERS: ATTEND Specialist | DX: M25.641 Stiffness of right hand, not elsewhere classified (principal); M25.631 Stiffness of right wrist, not elsewhere classified ==